=== PATIENT | female | born 1955 | race Caucasian/White ===

== ENCOUNTER 2020-02-08 10:21 | Outpatient (REF) | payer OTHER, SELFPAY ==
[2020-02-08 12:06] LABS: MANUAL DIFF FLAG NO
[2020-02-08 12:12] LABS: Basophils Percent Auto 0.7 % (0-2); Eosinophils Absolute Auto 0.2 X10*3/uL (0.0-0.4); Eosinophils Percent Auto 4.1 % (0-4); Hemoglobin 13.5 g/dl (12.0-16.0); Imm Gran Abs Auto 0.02 X10*3/uL (0.00-0.03); Imm Gran Pct Auto 0.4 % (0.0-0.4); Lymphocytes Absolute Auto 1.1 X10*3/uL (1.2-4.9); Lymphocytes Percent Auto 20.6 % (20-40); Mean Corpuscular HGB Conc 32.1 g/dl (31.0-35.0); Mean Corpuscular Hemoglobin 30.9 pg (27.0-33.0); Mean Corpuscular Volume 96.1 fL (80-98); Mean Platelet Volume 10.3 fL (9.4-12.3); Monocytes Absolute Auto 0.4 X10*3/uL (0.1-1.2); Monocytes Percent Auto 7.5 % (2-11); Neutrophils Absolute Auto 3.6 X10*3/uL (2.0-8.3); Neutrophils Percent Auto 66.7 % (45-73); Platelet Count 256 X10*3/uL (160-400); Red Blood Count 4.37 X10*6/uL (4.20-5.50); Red Cell Distribution Width 12.1 % (11.0-16.0); White Blood Count 5.3 X10*3/uL (4.8-10.8)
[2020-02-08 12:54] LABS: Alanine Aminotransferase 14 U/L (0-31); Albumin Level 4.2 g/dL (3.5-5.0); Alkaline Phosphatase 78 U/L (39-117); Anion Gap 9 (12-20); Aspartate Amino Transferase 17 U/L (5-31); Bilirubin Total 0.5 mg/dL (0.0-1.0); Blood Urea Nitrogen 37 mg/dL (9-16); Calcium 9.4 mg/dL (8.4-10.2); Carbon Dioxide 29 mmol/L (22-29); Chloride 106 mmol/L (96-108); Cholesterol 205 mg/dL; Estimated Glomerular Filt Rate 26; Glucose Fasting 93 mg/dL (60-99); HDL Cholesterol 63 mg/dL; LDL Cholesterol Calculated 128 mg/dl; Sodium 139 mmol/L (135-145); Total Protein 7.3 g/dL (6.5-8.0); Triglycerides 72 mg/dL
== END 2020-02-08 10:22 | disposition home or self-care (01) ==
LOC: HO.LAB 10:21
PROVIDERS: PCP Internal Medicine; Visit Provider Internal Medicine
DX: I48.0 Paroxysmal atrial fibrillation (principal); E78.00 Pure hypercholesterolemia, unspecified; I11.0 Hypertensive heart disease with heart failure; N18.9 Chronic kidney disease, unspecified
CPT/HCPCS: 36415; 80053; 80061; 85025

== ENCOUNTER 2020-04-10 10:54 | Outpatient (REF) | payer OTHER, SELFPAY ==
[2020-04-10 14:21] LABS: Anion Gap 12 (12-20); Blood Urea Nitrogen 31 mg/dL (9-16); Calcium 9.7 mg/dL (8.4-10.2); Carbon Dioxide 29 mmol/L (22-29); Chloride 104 mmol/L (96-108); Estimated Glomerular Filt Rate 32; Glucose Random 87 mg/dL (60-115); Potassium 5.1 mmol/l (3.3-5.1); Sodium 140 mmol/L (135-145)
== END 2020-04-10 10:55 | disposition home or self-care (01) ==
LOC: HO.10HDL 10:54
PROVIDERS: PCP Internal Medicine; Visit Provider Internal Medicine
DX: I12.9 Hypertensive chronic kidney disease with stage 1 through stage 4 chronic kidney disease, or unspecified chronic kidney disease (principal); N18.9 Chronic kidney disease, unspecified
CPT/HCPCS: 80048

== ENCOUNTER → 2020-05-07 13:38 | Outpatient (BNVA) | payer OTHER, SELFPAY | PROVIDERS: PCP Internal Medicine; Visit Provider Internal Medicine Cardiovascular Disease | DX: I48.0 Paroxysmal atrial fibrillation (principal); I10 Essential (primary) hypertension; R07.2 Precordial pain | CPT/HCPCS: 93005 ==

== ENCOUNTER → 2020-05-14 07:52 | Outpatient (REF) | payer OTHER, SELFPAY ==
--- NOTE | 2020-05-14 08:00 | CA_ITS ---
Acquisition Time: 2020-05-14 09:08:14 Total Exercise Time: 00:02:00 Test Indications: Chest Pain Medications: DILTIAZEM LISINOPRIL STATIN ALLOPURINOL LORAZAPAM Protocol: LEXISCAN Max HR: 086 BPM 55% of Pred: 155 BPM Max BP: 138/084 mmHG Max Work Load: 1.0 METS Pharmacological stress test using Lexiscan while sitting and kicking her feet. Pt tolerated well, denies any anginal sx. EKG with isolated PVC's, non-diagnostic for ischemia. Nuclear images will follow. Normotensive response to test. Test reviewed with Dr. Boothe Referred By: Devin Dunlap Overread By: Imelda Brooks
--- NOTE | 2020-05-14 08:09 | NM_ITS ---
Myocardial perfusion study Indication: Precordial chest pain Technique: The patient was brought in for a Lexiscan perfusion study on 05/14/2020. Patient performed low-level exercise and was injected 0.4 mg of Lexiscan intravenously. Within a minute of injection, 30 mCi of sestamibi was given intravenously. Images were obtained using the SPECT gamma camera interlaced with the gating device. Images were obtained in supine position. Resting perfusion study was performed on 05/15/2020. Patient was administered 30 mCi of sestamibi intravenously at rest. Images were then obtained in supine position. Images obtained with and without CT attenuation. Total DLP 92 mGy-cm. Images were processed with the software and compared side to side in short axis, horizontal long axis and vertical long axis views. Findings: The stress perfusion study showed non attenuated images show normal uptake of radiotracer in all segments of LV myocardium. Attenuation corrected images show minimally reduced uptake in the apex of the LV myocardium.. The gated study shows normal LV systolic function with calculated LVEF of 73%. LV cavity is normal in size. The gated study shows normal systolic wall thickening and contraction of segments. Resting study shows no change in perfusion pattern compared to stress perfusion study. Gating at rest reveals normal systolic wall motion with ejection fraction at 71%. The findings are consistent with normal myocardial perfusion. NM/NM cardiolite stress test Impression: 1. Myocardial perfusion imaging study shows normal myocardial perfusion 2. Gated LVEF is 73% 3. Transient ischemic dilatation not present EKG is nondiagnostic for ischemia
== END ==
LOC: HO.CARD 07:52
PROVIDERS: PCP Internal Medicine; Visit Provider Internal Medicine Cardiovascular Disease
DX: I48.0 Paroxysmal atrial fibrillation (principal); I10 Essential (primary) hypertension; R07.2 Precordial pain
CPT/HCPCS: 78452; 93017; A9500; J0280; J2785

== ENCOUNTER → 2020-05-20 13:28 | Outpatient (BNVA) | payer OTHER, SELFPAY | PROVIDERS: PCP Internal Medicine; Visit Provider Nurse Practitioner Family ==

== ENCOUNTER 2020-07-23 11:01 | Outpatient (REF) | payer OTHER, SELFPAY ==
[2020-07-23 11:30] LABS: MANUAL DIFF FLAG NO
[2020-07-23 11:35] LABS: Basophils Percent Auto 0.7 % (0-2); Eosinophils Absolute Auto 0.1 X10*3/uL (0.0-0.4); Eosinophils Percent Auto 2.5 % (0-4); Hematocrit 40.9 % (37-47); Hemoglobin 12.7 g/dl (12.0-16.0); Imm Gran Abs Auto 0.03 X10*3/uL (0.00-0.03); Imm Gran Pct Auto 0.5 % (0.0-0.4); Mean Corpuscular HGB Conc 31.1 g/dl (31.0-35.0); Mean Corpuscular Volume 96.5 fL (80-98); Mean Platelet Volume 9.4 fL (9.4-12.3); Monocytes Absolute Auto 0.5 X10*3/uL (0.1-1.2); Monocytes Percent Auto 8.1 % (2-11); Neutrophils Absolute Auto 3.9 X10*3/uL (2.0-8.3); Neutrophils Percent Auto 70.2 % (45-73); Platelet Count 241 X10*3/uL (160-400); Red Blood Count 4.24 X10*6/uL (4.20-5.50); White Blood Count 5.6 X10*3/uL (4.8-10.8)
[2020-07-23 12:04] LABS: Alanine Aminotransferase 18 U/L (0-31); Albumin Level 4.1 g/dL (3.5-5.0); Alkaline Phosphatase 83 U/L (39-117); Anion Gap 13 (12-20); Aspartate Amino Transferase 19 U/L (5-31); Bilirubin Total 0.3 mg/dL (0.0-1.0); Blood Urea Nitrogen 31 mg/dL (9-16); Calcium 9.4 mg/dL (8.4-10.2); Carbon Dioxide 26 mmol/L (22-29); Chloride 106 mmol/L (96-108); Estimated Glomerular Filt Rate 30; Glucose Random 86 mg/dL (60-115); Potassium 5.2 mmol/L (3.3-5.1); Sodium 140 mmol/L (135-145); Total Protein 7.3 g/dL (6.5-8.0); Uric Acid 7.7 mg/dL (2.4-5.7)
== END 2020-07-23 11:02 | disposition home or self-care (01) ==
LOC: HO.LAB 11:01
PROVIDERS: PCP Internal Medicine; Visit Provider Internal Medicine
DX: I12.9 Hypertensive chronic kidney disease with stage 1 through stage 4 chronic kidney disease, or unspecified chronic kidney disease (principal); N18.9 Chronic kidney disease, unspecified; M10.9 Gout, unspecified; G47.33 Obstructive sleep apnea (adult) (pediatric); K21.9 Gastro-esophageal reflux disease without esophagitis
CPT/HCPCS: 36415; 80053; 84550; 85025

== ENCOUNTER 2021-02-06 10:45 | Outpatient (REF) | payer OTHER, SELFPAY ==
[2021-02-06 13:37] LABS: MANUAL DIFF FLAG NO
[2021-02-06 13:44] LABS: Basophils Percent Auto 0.6 % (0-2); Eosinophils Absolute Auto 0.1 X10*3/uL (0.0-0.4); Eosinophils Percent Auto 2.6 % (0-4); Hematocrit 40.9 % (37-47); Hemoglobin 13.5 g/dl (12.0-16.0); Imm Gran Abs Auto 0.02 X10*3/uL (0.00-0.03); Imm Gran Pct Auto 0.4 % (0.0-0.4); Lymphocytes Absolute Auto 0.8 X10*3/uL (1.2-4.9); Lymphocytes Percent Auto 15.7 % (20-40); Mean Corpuscular Hemoglobin 31.3 pg (27.0-33.0); Mean Corpuscular Volume 94.7 fL (80-98); Mean Platelet Volume 10.6 fL (9.4-12.3); Monocytes Absolute Auto 0.3 X10*3/uL (0.1-1.2); Monocytes Percent Auto 6.5 % (2-11); Neutrophils Absolute Auto 3.8 X10*3/uL (2.0-8.3); Neutrophils Percent Auto 74.2 % (45-73); Platelet Count 253 X10*3/uL (160-400); Red Blood Count 4.32 X10*6/uL (4.20-5.50); Red Cell Distribution Width 12.2 % (11.0-16.0); White Blood Count 5.1 X10*3/uL (4.8-10.8)
[2021-02-06 14:17] LABS: Alanine Aminotransferase 16 U/L (0-31); Alkaline Phosphatase 82 U/L (39-117); Anion Gap 13 (12-20); Aspartate Amino Transferase 19 U/L (5-31); Bilirubin Total 0.3 mg/dL (0.0-1.0); Blood Urea Nitrogen 32 mg/dL (9-16); Calcium 9.4 mg/dL (8.4-10.2); Carbon Dioxide 24 mmol/L (22-29); Chloride 109 mmol/L (96-108); Estimated Glomerular Filt Rate 27; Glucose Random 125 mg/dL (60-115); Potassium 4.6 mmol/L (3.3-5.1); Sodium 141 mmol/L (135-145); Total Protein 7.2 g/dL (6.5-8.0)
== END 2021-02-06 10:46 | disposition home or self-care (01) ==
LOC: HO.10HDL 10:45
PROVIDERS: Visit Provider Internal Medicine
DX: I12.9 Hypertensive chronic kidney disease with stage 1 through stage 4 chronic kidney disease, or unspecified chronic kidney disease (principal); N18.9 Chronic kidney disease, unspecified; I48.0 Paroxysmal atrial fibrillation
CPT/HCPCS: 36415; 80053; 85025

== ENCOUNTER 2021-05-14 09:55 | Outpatient (REF) | payer OTHER, SELFPAY ==
[2021-05-14 14:00] LABS: Basophils Percent Auto 0.4 % (0-2); Eosinophils Absolute Auto 0.1 X10*3/uL (0.0-0.4); Eosinophils Percent Auto 2.8 % (0-4); Hematocrit 41.3 % (37.0-47.0); Hemoglobin 13.3 g/dl (12.0-16.0); Imm Gran Abs Auto 0.02 X10*3/uL (0.00-0.03); Imm Gran Pct Auto 0.4 % (0.0-0.4); Lymphocytes Absolute Auto 0.9 X10*3/uL (1.2-4.9); Lymphocytes Percent Auto 17.6 % (20-40); MANUAL DIFF FLAG NO; Mean Corpuscular HGB Conc 32.2 g/dl (31.0-35.0); Mean Corpuscular Hemoglobin 30.9 pg (27.0-33.0); Mean Platelet Volume 10.6 fL (9.4-12.3); Monocytes Absolute Auto 0.3 X10*3/uL (0.1-1.2); Monocytes Percent Auto 6.7 % (2-11); Neutrophils Absolute Auto 3.6 x10*3/uL (2.0-8.3); Neutrophils Percent Auto 72.1 % (45-73); Platelet Count 283 X10*3/uL (160-400); Red Cell Distribution Width 12.2 % (11.0-16.0)
[2021-05-14 14:12] LABS: Estimated Average Glucose 111 mg/dL; Hemoglobin A1C 149.2241 umol/L; Hemoglobin A1c % 5.5 %
[2021-05-14 14:14] LABS: Appearance Urine HAZY; Color Urine YELLOW; Glucose Urine UA NEG (NEG); Leukocyte Esterase Urine NEG (NEG); Nitrite Urine NEG (NEG); PH 5.5 (5.0-8.0); Specific Gravity - Urine 1.025 (1.005-1.025); Urine Blood NEG (NEG); Urine Ketones 5 MG/DL (NEG); Urine Protein 2+ MG/DL (NEG-TRACE)
[2021-05-14 14:36] LABS: Squamous Epithelial Cell Urine 2+ /LPF
[2021-05-14 14:38] LABS: Amorphous Sediment Urine TRACE /LPF; Bacteria Urine 2+ /LPF; RBC Urine 0-2 /HPF (0); WBC Urine 0 /HPF (0-4)
[2021-05-14 14:39] LABS: Cholesterol 192 mg/dL; HDL Cholesterol 57 mg/dL; LDL Cholesterol Calculated 121 mg/dl; Triglycerides 73 mg/dL
[2021-05-14 21:43] LABS: Creatinine Urine 257.29 mg/dL
[2021-05-14 21:57] LABS: Microalbum/Creatinine Ratio Ur 305.4 ug/mg cr
== END 2021-05-14 09:56 | disposition home or self-care (01) ==
LOC: HO.10HDL 09:55
PROVIDERS: Visit Provider Internal Medicine
DX: E78.00 Pure hypercholesterolemia, unspecified (principal); I12.9 Hypertensive chronic kidney disease with stage 1 through stage 4 chronic kidney disease, or unspecified chronic kidney disease; N18.9 Chronic kidney disease, unspecified; R73.03 Prediabetes
CPT/HCPCS: 36415; 80061; 81001; 82043; 83036; 85025

== ENCOUNTER → 2021-05-19 14:19 | Outpatient (BNVA) | payer OTHER, SELFPAY | PROVIDERS: PCP Internal Medicine; Referring Provider Internal Medicine; Visit Provider Nurse Practitioner Family | DX: I48.0 Paroxysmal atrial fibrillation (principal); I12.9 Hypertensive chronic kidney disease with stage 1 through stage 4 chronic kidney disease, or unspecified chronic kidney disease; N18.9 Chronic kidney disease, unspecified; R07.2 Precordial pain | CPT/HCPCS: 93005 ==

== ENCOUNTER 2021-05-30 08:57 | Day surgery (SDC) | payer OTHER, SELFPAY ==
[2021-05-26 14:07] VITALS: BMI 31.8
--- NOTE | 2021-05-29 09:12 | HO.ANESPROP2 ---
Documented by User: Stormy Bae NP 05/29/21 09:15 HPI - Anesthesia Eval Consult details Narrative: 66yo F for Colonoscopy Xarelto for PAF Stable at 04/2021 Cardiol OV PMFSH Active Problems Active Problems: All Active Problems (Updated 05/26/21 @ 14:06 by Shira Kauffman RN) Precordial pain (Acute) Paroxysmal atrial fibrillation (Acute) HTN (hypertension) (Acute) CKD (chronic kidney disease) (Acute) Past Medical History Medical History Anxiety Chronic renal insufficiency CKD (chronic kidney disease) Elevated cholesterol Gout HTN (hypertension) Hx of ectopic Paroxysmal atrial fibrillation Sleep apnea Family History Family History Father CVD (cardiovascular disease) Mother No problems noted. Surgical History Surgical History H/O colonoscopy History of surgery on arm History of total abdominal hysterectomy Hx of blepharoplasty Hx of cardiac cath Hx of ovarian cystectomy Social History Social History (Updated 05/30/21 @ 10:03 by Ashley Holloway RN) Patient Tobacco Use Status: Never used Tobacco Advance Directives Information Provided: Yes (brochure mailed) Advance Directives on File: No Meds Allergies Allergy/AdvReac Type Severity Reaction Status Date / Time codeine Allergy Intermediate tachycardia Verified 05/30/21 10:01 Home Medications Medication Instructions Recorded Confirmed Last Taken Type allopurinol 100 mg tablet 100 mg PO DAILY PRN 05/07/20 05/26/21 Unknown History lisinopril 20 mg tablet 20 mg PO DAILY 05/07/20 05/26/21 Unknown History lorazepam 1 mg tablet 3 mg PO Q OTHER DAY PRN 05/07/20 05/26/21 Unknown History Exam Exam Date and Time: May 29, 2021 09 Height,Weight and Vital Signs: Height 5 ft 5 in Weight 87 kg Pertinent Lab Results Pertinent Lab Results: Laboratory Tests 02/06/21 05/14/21 10:50 10:00 WBC 5.0 Hgb 13.3 Hct 41.3 Plt Count 283 Sodium 141 Potassium 4.6 Chloride 109 H Carbon Dioxide 24 BUN 32 H Creatinine 1.88 H Narrative Narrative: EKG 04/2021 SR, nonspecific T wave abnormality, rate 65, QTc 401ms Echo 04/06/19 showed EF 65-70%, normal RV function, normal valves. Nuclear stress test? 05/14/20 shows normal myocardial perfusion imaging.? Assessment and Plan Assessment Anesthesia Assessment: Chart Reviewed Documented by User: Sumi Keene MD 05/30/21 10:15 [facility] Past Medical History Medical History Anxiety Chronic renal insufficiency CKD (chronic kidney disease) Elevated cholesterol Gout HTN (hypertension) Hx of ectopic Paroxysmal atrial fibrillation Sleep apnea Family History Family History Father CVD (cardiovascular disease) Mother No problems noted. Family history of problems with anesthesia: No Surgical History Surgical History H/O colonoscopy History of surgery on arm History of total abdominal hysterectomy Hx of blepharoplasty Hx of cardiac cath Hx of ovarian cystectomy History of Problems with Anesthesia: No Social History Social History (Updated 05/30/21 @ 10:03 by Ashley Holloway RN) Patient Tobacco Use Status: Never used Tobacco Advance Directives Information Provided: Yes (brochure mailed) Advance Directives on File: No Meds Allergies Allergy/AdvReac Type Severity Reaction Status Date / Time codeine Allergy Intermediate tachycardia Verified 05/30/21 10:01 Home Medications Medication Instructions Recorded Confirmed Last Taken Type allopurinol 100 mg tablet 100 mg PO DAILY PRN 05/07/20 05/26/21 Unknown History lisinopril 20 mg tablet 20 mg PO DAILY 05/07/20 05/26/21 Unknown History lorazepam 1 mg tablet 3 mg PO Q OTHER DAY PRN 05/07/20 05/26/21 Unknown History Exam Airway Mallampati Class: II TM Dist: >3cm Neck ROM: Full Heart: rrr Lungs: cta Assessment and Plan Assessment Anesthesia Assessment: Anesthesia Plan Discussed and Chart Reviewed Final Anesthetic Review Family History of Problems with Anesthesia: No History of Problems with Anesthesia: No NPO: Yes ASA Class: III Final Preanesthetic Review: No Changes in Pt Med Stat, Meds/Allgs Chart Reviewed and Consent Obtained/Reviewed Patient Risk: Intermediate Procedure Risk: Intermediate Anesthetic Plan Anesthetic Plan: MAC: Disposition: Standard PACU
[2021-05-30 09:33] VITALS: BP 109/62; PULSE 66; RESP 18; TEMP 36.8; O2SAT 95
[2021-05-30] MEDS: Lactated Ringers 1,000 ML 100 ML IVCONT (09:58)
[2021-05-30 11:11] VITALS: BP 105/59; PULSE 58; RESP 16; TEMP 36.2; O2SAT 93
--- NOTE | 2021-05-30 11:14 | P.BOP_ITS ---
Brief Operative Note Date of Service: 05/30/21 Pre-op diagnosis: Screening Post-op diagnosis: other (Colon polyps) Procedure: Colonoscopy to the cecum and TI with bx/removal of polyps Surgeon: Jayden Cross Anesthesia: MAC Was an Fruit Harvest Machine Operator used for this Procedure?: No Estimated blood loss (mL): 2.0 Pathology: other (A. Ascending colon polyps) Condition: stable Disposition: PACU
[2021-05-30 11:26] VITALS: BP 107/59; PULSE 52; RESP 16; TEMP 36.4; O2SAT 97
--- NOTE | 2021-05-30 12:24 | OP_ITS ---
SURGEON: Jayden Cross MD INDICATIONS: Patient presents for evaluation of colorectal cancer screening and personal history of tubular adenoma of the colon. Full consent obtained from her for this, including risks of bleeding and perforation. PREOPERATIVE DIAGNOSIS: Colorectal cancer screening and personal history of tubular adenoma of the colon. POSTOPERATIVE DIAGNOSIS: Colorectal cancer screening and personal history of tubular adenoma of the colon, colon polyps, diverticulosis, and internal hemorrhoids. PROCEDURE PERFORMED: Colonoscopy to the cecum and terminal ileum with biopsy and removal of polyps. ESTIMATED BLOOD LOSS: COMPLICATIONS: ANESTHESIA: Monitored anesthesia care. ASSISTANTS: SPECIMENS: DESCRIPTION OF PROCEDURE: The patient was placed in the left lateral decubitus position. The digital rectal exam revealed no abnormalities. The Olympus video pediatric colonoscope was entered into the rectum and advanced to the cecum with the assistance of abdominal pressure. Once in the cecum I did identify normal-appearing cecal pouch with appendiceal orifice and a normal-appearing ileocecal valve. The terminal ileum was cannulated and appeared normal. Scope was withdrawn back in the colon. The entire cecum appeared normal. The scope was slowly withdrawn assessing all mucosal surfaces carefully. Preparation was good throughout most of the colon, although there were some areas of liquid and solid stool, which were irrigated and suctioned away as best as possible. There were 2 approximately 5 mm polyps in the ascending colon, which were each biopsied and completely removed with the cold biopsy forceps. I did not visualize any other polyps, colitis, or angiodysplasia. There was a mild amount of sigmoid diverticulosis. In the rectum, scope was retroflexed visualizing internal hemorrhoids, but no other pathology. The rectal mucosa appeared normal. Scope was straightened and withdrawn from the patient. She tolerated the procedure well and was returned to the recovery area in stable condition. IMPRESSION: 1. Small colon polyps, status post biopsy removal. 2. Diverticulosis. 3. Internal hemorrhoids. PLAN: The results of biopsy will be checked. I would recommend a repeat colonoscopy in 5 years for further screening and surveillance. She was advised to resume her Xarelto in 48 hours. She will otherwise see me on a p.r.n. basis. MD MICHELL Romero/CARLA / [phone]
== END 2021-05-30 12:21 | disposition home or self-care (01) ==
PROVIDERS: PCP Internal Medicine; Visit Provider Internal Medicine
PROC: 0DJD8ZZ Inspection of Lower Intestinal Tract, Via Natural or Artificial Opening Endoscopic (ICD-10-PCS; CPT 45378; principal; 2021-05-30 10:20)
DX: Z12.11 Encounter for screening for malignant neoplasm of colon (principal); Z86.010 Personal history of colon polyps; D12.2 Benign neoplasm of ascending colon; K57.30 Diverticulosis of large intestine without perforation or abscess without bleeding; K64.8 Other hemorrhoids; I12.9 Hypertensive chronic kidney disease with stage 1 through stage 4 chronic kidney disease, or unspecified chronic kidney disease; N18.2 Chronic kidney disease, stage 2 (mild); E78.5 Hyperlipidemia, unspecified; G47.33 Obstructive sleep apnea (adult) (pediatric); I48.0 Paroxysmal atrial fibrillation; Z79.01 Long term (current) use of anticoagulants; Z99.89 Dependence on other enabling machines and devices
CPT/HCPCS: 45380; 88305

== ENCOUNTER → 2021-07-09 08:48 | Outpatient (BNVA) | payer OTHER, SELFPAY | PROVIDERS: PCP Internal Medicine; Referring Provider Internal Medicine; Visit Provider Internal Medicine Cardiovascular Disease | DX: I48.0 Paroxysmal atrial fibrillation (principal); I10 Essential (primary) hypertension | CPT/HCPCS: 93005 ==

== ENCOUNTER 2021-08-25 10:12 | Outpatient (REF) | payer OTHER, SELFPAY ==
[2021-08-25 12:54] LABS: MANUAL DIFF FLAG NO
[2021-08-25 12:55] LABS: Basophils Percent Auto 0.6 % (0-2); Eosinophils Absolute Auto 0.1 X10*3/uL (0.0-0.4); Eosinophils Percent Auto 2.8 % (0-4); Hematocrit 39.9 % (37.0-47.0); Hemoglobin 12.7 g/dl (12.0-16.0); Imm Gran Abs Auto 0.02 X10*3/uL (0.00-0.03); Imm Gran Pct Auto 0.4 % (0.0-0.4); Lymphocytes Absolute Auto 0.9 X10*3/uL (1.2-4.9); Lymphocytes Percent Auto 18.5 % (20-40); Mean Corpuscular HGB Conc 31.8 g/dl (31.0-35.0); Mean Corpuscular Hemoglobin 30.5 pg (27.0-33.0); Mean Corpuscular Volume 95.7 fL (80.0-98.0); Mean Platelet Volume 10.7 fL (9.4-12.3); Monocytes Absolute Auto 0.4 X10*3/uL (0.1-1.2); Monocytes Percent Auto 8.9 % (2-11); Neutrophils Absolute Auto 3.2 x10*3/uL (2.0-8.3); Neutrophils Percent Auto 68.8 % (45-73); Platelet Count 222 X10*3/uL (160-400); Red Blood Count 4.17 X10*6/uL (4.20-5.50); Red Cell Distribution Width 12.5 % (11.0-16.0); White Blood Count 4.7 X10*3/uL (4.8-10.8)
[2021-08-25 13:08] LABS: Alanine Aminotransferase 16 U/L (0-31); Albumin Level 3.8 g/dL (3.5-5.0); Alkaline Phosphatase 66 U/L (39-117); Anion Gap 14 (12-20); Aspartate Amino Transferase 18 U/L (5-31); Bilirubin Total 0.6 mg/dL (0.0-1.0); Blood Urea Nitrogen 41 mg/dL (9-16); Calcium 9.4 mg/dL (8.4-10.2); Carbon Dioxide 22 mmol/L (22-29); Chloride 108 mmol/L (96-108); Estimated Glomerular Filt Rate 26; Glucose Random 100 mg/dL (60-115); Potassium 4.8 mmol/L (3.3-5.1); Sodium 139 mmol/L (135-145); Total Protein 6.9 g/dL (6.5-8.0)
[2021-08-25 13:36] LABS: Creatinine Urine 40.43 mg/dL; Microalbum/Creatinine Ratio Ur 341.3 ug/mg cr
[2021-08-25 14:06] LABS: Estimated Average Glucose 111 mg/dL; Hemoglobin A1c % 5.5 %
== END 2021-08-25 10:13 | disposition home or self-care (01) ==
LOC: HO.10HDL 10:12
PROVIDERS: Visit Provider Internal Medicine
DX: I48.0 Paroxysmal atrial fibrillation (principal); I12.9 Hypertensive chronic kidney disease with stage 1 through stage 4 chronic kidney disease, or unspecified chronic kidney disease; N18.9 Chronic kidney disease, unspecified; R73.03 Prediabetes; M10.9 Gout, unspecified
CPT/HCPCS: 36415; 80053; 82043; 83036; 85025

== ENCOUNTER 2021-12-11 11:49 | Outpatient (REF) | payer OTHER, SELFPAY ==
[2021-12-11 13:19] LABS: MANUAL DIFF FLAG NO
[2021-12-11 13:23] LABS: Basophils Percent Auto 0.6 % (0-2); Eosinophils Absolute Auto 0.1 X10*3/uL (0.0-0.4); Eosinophils Percent Auto 2.6 % (0-4); Hematocrit 41.8 % (37.0-47.0); Hemoglobin 13.6 g/dl (12.0-16.0); Imm Gran Abs Auto 0.02 X10*3/uL (0.00-0.03); Imm Gran Pct Auto 0.4 % (0.0-0.4); Lymphocytes Percent Auto 18.1 % (20-40); Mean Corpuscular HGB Conc 32.5 g/dl (31.0-35.0); Mean Corpuscular Hemoglobin 30.6 pg (27.0-33.0); Mean Corpuscular Volume 93.9 fL (80.0-98.0); Mean Platelet Volume 10.6 fL (9.4-12.3); Monocytes Absolute Auto 0.3 X10*3/uL (0.1-1.2); Monocytes Percent Auto 5.9 % (2-11); Neutrophils Absolute Auto 3.9 x10*3/uL (2.0-8.3); Neutrophils Percent Auto 72.4 % (45-73); Platelet Count 238 X10*3/uL (160-400); Red Blood Count 4.45 X10*6/uL (4.20-5.50); Red Cell Distribution Width 12.2 % (11.0-16.0); White Blood Count 5.4 X10*3/uL (4.8-10.8)
[2021-12-11 13:33] LABS: Appearance Urine Clear; Color Urine Yellow; Glucose Urine UA Negative (Negative); Leukocyte Esterase Urine Negative (Negative); Nitrite Urine Negative (Negative); Specific Gravity - Urine 1.015 (1.005-1.025); Urine Blood Negative (Negative); Urine Ketones Negative (Negative); Urine Protein 30 (1+) mg/dL (Neg-Trace)
[2021-12-11 13:35] LABS: Bacteria Urine None Seen (None Seen); Hyaline Casts Urine 0-2 /LPF (0-2); RBC Urine 0-2 /HPF (0-2); Squamous Epithelial Cell Urine 0-2 /HPF (0-2); WBC Urine 0-5 /HPF (0-5)
[2021-12-11 13:39] LABS: Alanine Aminotransferase 15 U/L (0-31); Albumin Level 3.9 g/dL (3.5-5.0); Alkaline Phosphatase 74 U/L (39-117); Anion Gap 14 (12-20); Aspartate Amino Transferase 19 U/L (5-31); Bilirubin Total < 0.2 mg/dL (0.0-1.0); Blood Urea Nitrogen 35 mg/dL (9-16); C Reactive Protein 0.18 mg/dL (< or = 0.50); Calcium 9.5 mg/dL (8.4-10.2); Carbon Dioxide 28 mmol/L (22-29); Chloride 105 mmol/L (96-108); Estimated Glomerular Filt Rate 29; Glucose Random 89 mg/dL (60-115); Potassium 4.8 mmol/L (3.3-5.1); Sodium 142 mmol/L (135-145)
== END 2021-12-11 11:50 | disposition home or self-care (01) ==
LOC: HO.10HDL 11:49
PROVIDERS: Visit Provider Internal Medicine
DX: R10.9 Unspecified abdominal pain (principal); M54.9 Dorsalgia, unspecified; N18.9 Chronic kidney disease, unspecified
CPT/HCPCS: 36415; 80053; 81001; 82550; 85025; 86140; 87086

== ENCOUNTER 2022-02-20 10:15 | Outpatient (REF) | payer OTHER, SELFPAY ==
[2022-02-20 13:37] LABS: MANUAL DIFF FLAG NO
[2022-02-20 13:42] LABS: Basophils Percent Auto 0.9 % (0-2); Eosinophils Absolute Auto 0.1 X10*3/uL (0.0-0.4); Eosinophils Percent Auto 3.3 % (0-4); Hematocrit 41.1 % (37.0-47.0); Hemoglobin 13.3 g/dl (12.0-16.0); Imm Gran Abs Auto 0.02 X10*3/uL (0.00-0.03); Imm Gran Pct Auto 0.5 % (0.0-0.4); Lymphocytes Absolute Auto 0.9 X10*3/uL (1.2-4.9); Mean Corpuscular HGB Conc 32.4 g/dl (31.0-35.0); Mean Corpuscular Hemoglobin 30.6 pg (27.0-33.0); Mean Corpuscular Volume 94.7 fL (80.0-98.0); Mean Platelet Volume 10.4 fL (9.4-12.3); Monocytes Absolute Auto 0.3 X10*3/uL (0.1-1.2); Monocytes Percent Auto 7.5 % (2-11); Neutrophils Absolute Auto 2.8 x10*3/uL (2.0-8.3); Neutrophils Percent Auto 65.8 % (45-73); Platelet Count 238 X10*3/uL (160-400); Red Blood Count 4.34 X10*6/uL (4.20-5.50); Red Cell Distribution Width 12.2 % (11.0-16.0); White Blood Count 4.3 X10*3/uL (4.8-10.8)
[2022-02-20 14:00] LABS: Alanine Aminotransferase 16 U/L (0-31); Alkaline Phosphatase 65 U/L (39-117); Anion Gap 15 (12-20); Aspartate Amino Transferase 21 U/L (5-31); Bilirubin Total 0.6 mg/dL (0.0-1.0); Blood Urea Nitrogen 34 mg/dL (9-16); Calcium 9.8 mg/dL (8.4-10.2); Carbon Dioxide 25 mmol/L (22-29); Chloride 105 mmol/L (96-108); Cholesterol 217 mg/dL; Estimated Glomerular Filt Rate 33; Glucose Fasting 89 mg/dL (60-99); HDL Cholesterol 67 mg/dL; LDL Cholesterol Calculated 139 mg/dl; Potassium 4.7 mmol/L (3.3-5.1); Sodium 140 mmol/L (135-145); Triglycerides 57 mg/dL
[2022-02-20 14:07] LABS: Estimated Average Glucose 108 mg/dL; Hemoglobin A1c % 5.4 %
[2022-02-20 14:38] LABS: Microalbum/Creatinine Ratio Ur 937.2 ug/mg cr
[2022-02-24 11:42] LABS: Calcium (PTHI) 9.8 mg/dL (8.6-10.4); PTHI 62 pg/mL (16-77)
== END 2022-02-20 10:16 | disposition home or self-care (01) ==
LOC: HO.10HDL 10:15
PROVIDERS: Visit Provider Internal Medicine
DX: K21.9 Gastro-esophageal reflux disease without esophagitis (principal); I48.0 Paroxysmal atrial fibrillation; E78.00 Pure hypercholesterolemia, unspecified; R73.03 Prediabetes; I12.9 Hypertensive chronic kidney disease with stage 1 through stage 4 chronic kidney disease, or unspecified chronic kidney disease; N18.9 Chronic kidney disease, unspecified
CPT/HCPCS: 36415; 80053; 80061; 82043; 83036; 83970; 85025

== ENCOUNTER 2022-03-25 07:57 | Outpatient (REF) | payer OTHER, SELFPAY ==
--- NOTE | ~2022-03-25 | MM_ITS ---
EXAMINATION: MM SCREENING DIGITAL BREAST TOMOSYNTHESIS, BILATERAL CLINICAL INFORMATION: Screening. Asymptomatic. The lifetime risk of breast cancer based on the Tyrer-Cuzick Model is 5%. COMPARISON: Mammography: December 05, 2020 and studies dating back to February 26, 2012 TECHNIQUE: Digital breast tomosynthesis is performed in both the craniocaudal and mediolateral oblique views along with computer-aided detection (CAD). Synthesized 2D images are generated from the tomosynthesis. FINDINGS: The breasts are heterogeneously dense, which may obscure small masses (ACR BI-RADS breast composition Category c). There are no significant masses, abnormal calcifications, or other abnormalities. MM/MM tomosynthesis screening BI IMPRESSION: No significant changes from prior exam. ASSESSMENT: BI-RADS 1: Negative RECOMMENDATION: Routine annual mammography screening. This patient's information was entered into a reminder system with a target due date for their next mammogram.
--- NOTE | ~2022-03-25 | MM_ITS ---
EXAMINATION: BONE DENSITOMETRY CLINICAL INDICATION: Menopause. COMPARISON: None (current study represents initial baseline exam). TECHNIQUE: Using a [employer] DXA System (software version: 13.1) manufactured by [employer], dual-energy x-ray absorptiometry was performed of the lumbar spine and left hip. The images are of good technical quality. Summary results are attached. FINDINGS: AP SPINE L1-L4: BMD 1.379 g/cm2, Z-score 2.7, T-score 1.7, normal. LEFT FEMUR, NECK: BMD 0.867 g/cm2, Z-score 0.0, T-score -1.2, osteopenia. LEFT FEMUR, TOTAL: BMD 1.005 g/cm2, Z-score 0.9, T-score 0.0, normal. IDENTIFIED RISK FACTORS: Early menopause, height loss, hysterectomy, bilateral oophorectomy, renal, secondary osteoporosis. HISTORY OF FRACTURE: None listed. MEDICATIONS: Vitamin D. MM/XR DEXA axial skeleton IMPRESSION: 1. DIAGNOSIS: Osteopenia based on the lowest T-score value of -1.2 in the femoral neck applying World Health Organization criteria. 2. 10-YEAR FRACTURE RISK PREDICTION, FRAX: Major osteoporotic fracture (clinical spine, forearm, hip or shoulder) 4.7%. Hip fracture 0.4%. 3. Treatment Recommendations: NOF guidelines recommend consideration for treatment in postmenopausal women and men age 50 and older presenting with the following: -A hip or vertebral (clinical or morphometric) fracture. -T-score less than or equal to -2.5 at the femoral neck or spine after appropriate evaluation to exclude secondary causes. -Low bone mass at the hip or spine and a 10-year fracture probability by FRAX of greater than or equal to 3% for hip fracture or greater than or equal to 20% for major osteoporotic fracture based on the [place] adapted WHO algorithm. 4. Other Recommendations: All treatment decisions require clinical judgment and consideration of individual patient factors, including patient preferences, comorbidities, previous drug use, risk factors not captured in the FRAX model (e.g. frailty, falls, vitamin D deficiency, increased bone turnover, interval significant decline in bone density) and possible under or overestimation of fracture risk by FRAX. Additional medical evaluation for secondary cause of low bone mineral density may be appropriate. FUTURE SCAN RECOMMENDATION: People with diagnosed cases of osteoporosis or at high risk for fracture should have regular bone mineral density tests. For patients eligible for Medicare, routine testing is allowed once every 2 years. The testing frequency can be increased to one year for patients who have rapidly progressing disease, those who are receiving or discontinuing medical therapy to restore bone mass, or have additional risk factors.
== END 2022-03-25 07:58 | disposition home or self-care (01) ==
LOC: HO.MAMMO 07:57
PROVIDERS: PCP Internal Medicine; Visit Provider Internal Medicine
DX: Z12.31 Encounter for screening mammogram for malignant neoplasm of breast (principal); Z13.820 Encounter for screening for osteoporosis; Z78.0 Asymptomatic menopausal state
CPT/HCPCS: 77063; 77067; 77080

== ENCOUNTER 2022-04-14 12:45 | Outpatient (REF) | payer OTHER, SELFPAY ==
--- NOTE | ~2022-04-14 | US_ITS ---
EXAMINATION: US DIAGNOSTIC ULTRASOUND BREAST, LEFT CLINICAL INFORMATION: Left breast pain for several weeks. No palpable mass or discharge or erythema. COMPARISON: Mammography 03/25/2022; outside mammography 12/05/2020 ([facility]).. TECHNIQUE: Ultrasound left breast is targeted to all 4 quadrants and additional attention to the inframammary fold region at site of greatest symptoms. Grayscale imaging and color Doppler are performed without and with harmonics. FINDINGS: There is no cystic or solid mass or architectural abnormality. No focal duct ectasia. No skin thickening or edema tracking in soft tissue planes. Chest wall soft tissues are unremarkable. Results are discussed with the patient at time of visit. Patient has upcoming appointment with surgeon for additional evaluation of her symptoms. US/US breast LT limited IMPRESSION: -Unremarkable left breast ultrasound. ASSESSMENT: BI-RADS 1: Negative RECOMMENDATION: -Patient should be managed based on the clinical impression. -Patient has follow up surgical consultation. -Otherwise, routine annual screening mammography. This patient's information was entered into a reminder system with a target due date for their next mammogram.
== END 2022-04-14 12:46 | disposition home or self-care (01) ==
LOC: HO.MAMMO 12:45
PROVIDERS: PCP Internal Medicine; Visit Provider Internal Medicine
DX: N64.4 Mastodynia (principal)
CPT/HCPCS: 76642

== ENCOUNTER → 2022-04-21 08:18 | Outpatient (REF) | payer OTHER, SELFPAY ==
--- NOTE | 2022-04-21 08:26 | CA_ITS ---
Transthoracic Echocardiogram Patient (Last, First, Middle): Ashlie Maurer T Gender: Female Date of : 1955 Age: 67 Procedure Date: 04/21/2022 Procedure Type: Transthoracic Echocardiogram Location: OP Height: 162.56 cm Weight: 81.19 kg BSA: 1.87 m2 Heart Rate: bpm BP: 145 / 80 mmHg Water Fabricator Operator: TO Referring MD: Devin Dunlap MD Vice President Global Digital Marketing: Devin Dunlap MD Symptoms: I48.0 - Paroxysmal atrial fibrillation Study Quality: Adequate ECG Rhythm: Sinus Conclusions: - 1. Normal LV systolic function with grade 1 diastolic dysfunction 2. Normal cardiac valvular Doppler 3. Normal RV systolic pressure 4. No pericardial effusion Findings Left Ventricle Normal left ventricular size, thickness, and systolic function. The visually estimated ejection fraction is between 60-65%. Spectral Doppler is indicative of an impaired relaxation filling pattern. E/E prime ratio is <8, consistent with normal filling pressures. Right Ventricle Normal right ventricular cavity size and systolic function. Atria The left atrium is normal in size. Interatrial shunt cannot be excluded. The right atrium is normal in size. Aortic Valve Normal aortic valve structure and function. There is no aortic valve stenosis. There is no aortic valve regurgitation. Mitral Valve Normal mitral valve structure and function. There is trace mitral valve regurgitation. There is no mitral valve stenosis. Pulmonic Valve The pulmonic valve was not well visualized. Tricuspid Valve Likely normal tricuspid valve structure and function. There is trace tricuspid valve regurgitation. The right ventricular systolic pressure is normal. The right ventricular systolic pressure is 20 mmHg. Normal right atrial pressure. Great Vessels All visible segments of the aorta are normal in size. The pulmonary artery was not well visualized. Venous The inferior vena cava is normal in size and collapses greater than 50% with inspiration. Pericardium/Pleural There is no evidence of pericardial effusion. Prior Study Comparison No significant change compared to prior study dated: 04/06/2019. Measurements 2D Linear Measurements IVSd: 1.24 0.6-0.9/0.6-1.0 cm LVIDd: 4.83 3.9-5.3/4.2-5.9 cm LVIDd Index: 2.58 2.4-3.2/2.2-3.1 cm/m2 LVIDs: 2.28 2.0-3.6 cm LVPWd: 1.04 0.7-1.1 cm LA Diam: 4.10 2.7-3.8/3.0-4.0 cm LAIDs Index: 2.19 1.5-2.3 cm/m2 LV Mass: 256.62 67-162/88-224 g LV Mass Index: 137.23 43-95/49-115 g/m2 LVOT Diam: 1.90 3.0+(-)1.3 cm 2D Systolic Function EF 4C: 66.00 >55% EF 2C: 63.70 >55% EF BiP: 64.10 >55% Mitral Valve MV Pk E: 0.57 MV PK A: 0.57 MV Decel Time: 210.00 E/A: 1.00 E'Lateral: 8.70 E'Medial: 6.64 E/E' Med: 8.60 E/E' Lat: 6.60 PHT: 62.00 MVA PHT: 3.55 Decel Hutchinson: 2.71 Aortic Valve AoV Pk Gallito: 1.27 AoV Mn Gallito: 0.89 AoV VTI: 0.32 AoV Pk Grad: 6.00 Aov Mn Grad: 4.00 GINNY Cont.VTI: 2.20 LVOT LVOT Pk Gallito: 1.05 LVOT Mn Gallito: 0.70 LVOT VTI: 0.24 LVOT Pk Grad: 4.00 LVOT Mn Grad: 2.00 LVOT Diam: 1.90 LVOT Area: 2.84 Diastolic Function MV Pk E: 0.57 MV Pk A: 0.57 E/A: 1.00 E'Medial: 6.64 E/E' Med: 8.60 E' Laterial: 8.70 E/E' Lat: 6.60 Right Ventricle TAPSE (mm): 28.20 TVS' Gallito: 14.70 Tricuspid Valve TR Pk Gallito: 2.05 TR Pk Grad: 17.00 RA Press: 3.00 RVSP: 20.00 Great Vessels Aorta Sinus of Valsalva: 3.02 2.0-3.5 cm Ao Asc: 3.30 2.1-3.4 cm Updated in Other Vendor System with Status of Final Devin Dunlap MD electronically signed on 04/22/2022 4:13:05 PM with status of Final
== END ==
LOC: HO.CARD 08:18
PROVIDERS: PCP Internal Medicine; Visit Provider Internal Medicine Cardiovascular Disease
DX: I48.0 Paroxysmal atrial fibrillation (principal)
CPT/HCPCS: 93306

== ENCOUNTER → 2022-05-08 12:48 | Outpatient (BNVA) | payer OTHER, SELFPAY | PROVIDERS: PCP Internal Medicine; Referring Provider Internal Medicine; Visit Provider Surgery | DX: Z13.89 Encounter for screening for other disorder (principal) ==

== ENCOUNTER → 2022-05-19 13:15 | Outpatient (BNVA) | payer OTHER, SELFPAY | PROVIDERS: PCP Internal Medicine; Referring Provider Internal Medicine; Visit Provider Internal Medicine Cardiovascular Disease | DX: I48.0 Paroxysmal atrial fibrillation (principal); I10 Essential (primary) hypertension | CPT/HCPCS: 93005 ==

== ENCOUNTER 2022-05-25 11:19 | Outpatient (REF) | payer OTHER, SELFPAY ==
[2022-05-25 14:32] LABS: Anion Gap 14 (12-20); Blood Urea Nitrogen 32 mg/dL (9-16); Calcium 9.7 mg/dL (8.4-10.2); Carbon Dioxide 27 mmol/L (22-29); Chloride 107 mmol/L (96-108); Estimated Glomerular Filt Rate 27; Glucose Random 105 mg/dL (60-115); Potassium 4.7 mmol/L (3.3-5.1); Sodium 143 mmol/L (135-145)
[2022-05-27 04:49] LABS: HBS Num1 145.93 mIU/mL (0-7.99); ~Hepatitis B Surface Antibody REACTIVE (Nonreactive)
== END 2022-05-25 11:20 | disposition home or self-care (01) ==
LOC: HO.10HDL 11:19
PROVIDERS: Visit Provider Internal Medicine
DX: I12.9 Hypertensive chronic kidney disease with stage 1 through stage 4 chronic kidney disease, or unspecified chronic kidney disease (principal); N18.9 Chronic kidney disease, unspecified; B19.10 Unspecified viral hepatitis B without hepatic coma
CPT/HCPCS: 36415; 80048; 86706

== ENCOUNTER 2022-08-25 10:28 | Outpatient (REF) | payer OTHER, SELFPAY ==
[2022-08-25 10:44] LABS: MANUAL DIFF FLAG NO
[2022-08-25 11:41] LABS: Basophils Percent Auto 0.7 % (0-2); Eosinophils Absolute Auto 0.2 X10*3/uL (0.0-0.4); Eosinophils Percent Auto 3.1 % (0-4); Hematocrit 42.9 % (37.0-47.0); Hemoglobin 13.9 g/dl (12.0-16.0); Imm Gran Abs Auto 0.02 X10*3/uL (0.00-0.03); Imm Gran Pct Auto 0.4 % (0.0-0.4); Lymphocytes Absolute Auto 1.1 X10*3/uL (1.2-4.9); Lymphocytes Percent Auto 19.6 % (20-40); Mean Corpuscular HGB Conc 32.4 g/dl (31.0-35.0); Mean Corpuscular Hemoglobin 31.1 pg (27.0-33.0); Mean Platelet Volume 10.4 fL (9.4-12.3); Monocytes Absolute Auto 0.4 X10*3/uL (0.1-1.2); Monocytes Percent Auto 6.5 % (2-11); Neutrophils Absolute Auto 3.8 x10*3/uL (2.0-8.3); Neutrophils Percent Auto 69.7 % (45-73); Platelet Count 251 X10*3/uL (160-400); Red Blood Count 4.47 X10*6/uL (4.20-5.50); Red Cell Distribution Width 12.3 % (11.0-16.0); White Blood Count 5.4 X10*3/uL (4.8-10.8)
[2022-08-25 11:56] LABS: Estimated Average Glucose 108 mg/dL; Hemoglobin A1c % 5.4 %
[2022-08-25 12:09] LABS: Creatinine Urine 100.54 mg/dL; Microalbum/Creatinine Ratio Ur 448.5 ug/mg cr
[2022-08-25 12:15] LABS: Alanine Aminotransferase 16 U/L (0-31); Albumin Level 3.9 g/dL (3.5-5.0); Alkaline Phosphatase 83 U/L (39-117); Anion Gap 13 (12-20); Aspartate Amino Transferase 19 U/L (5-31); Bilirubin Total 0.5 mg/dL (0.0-1.0); Blood Urea Nitrogen 39 mg/dL (9-16); Calcium 9.8 mg/dL (8.4-10.2); Carbon Dioxide 24 mmol/L (22-29); Chloride 107 mmol/L (96-108); Estimated Glomerular Filt Rate 29; Glucose Random 105 mg/dL (60-115); Potassium 4.9 mmol/L (3.3-5.1); Sodium 139 mmol/L (135-145)
== END 2022-08-25 10:29 | disposition home or self-care (01) ==
LOC: HO.LAB 10:28
PROVIDERS: PCP Internal Medicine; Visit Provider Internal Medicine
DX: I12.9 Hypertensive chronic kidney disease with stage 1 through stage 4 chronic kidney disease, or unspecified chronic kidney disease (principal); N18.9 Chronic kidney disease, unspecified; I48.0 Paroxysmal atrial fibrillation; R73.03 Prediabetes; K57.90 Diverticulosis of intestine, part unspecified, without perforation or abscess without bleeding
CPT/HCPCS: 36415; 80053; 82043; 83036; 85025

== ENCOUNTER 2022-12-14 11:35 | Outpatient (REF) | payer OTHER, SELFPAY ==
[2022-12-14 14:25] LABS: Anion Gap 11 (12-20); Blood Urea Nitrogen 35 mg/dL (9-16); Calcium 9.9 mg/dL (8.4-10.2); Carbon Dioxide 25 mmol/L (22-29); Chloride 108 mmol/L (96-108); Estimated Glomerular Filt Rate 25; Glucose Random 107 mg/dL (60-115); Potassium 4.4 mmol/L (3.3-5.1); Sodium 140 mmol/L (135-145); Uric Acid 9.4 mg/dL (2.4-5.7)
== END 2022-12-14 11:36 | disposition home or self-care (01) ==
LOC: HO.10HDL 11:35
PROVIDERS: Visit Provider Internal Medicine
DX: I48.0 Paroxysmal atrial fibrillation (principal); I12.9 Hypertensive chronic kidney disease with stage 1 through stage 4 chronic kidney disease, or unspecified chronic kidney disease; N18.9 Chronic kidney disease, unspecified; K21.9 Gastro-esophageal reflux disease without esophagitis; M10.9 Gout, unspecified
CPT/HCPCS: 36415; 80048; 84550

== ENCOUNTER 2022-12-16 10:26 | Outpatient (REF) | payer OTHER, SELFPAY ==
[2022-12-16 13:14] LABS: MANUAL DIFF FLAG NO
[2022-12-16 13:28] LABS: Basophils Percent Auto 0.7 % (0-2); Eosinophils Absolute Auto 0.2 X10*3/uL (0.0-0.4); Eosinophils Percent Auto 3.1 % (0-4); Hematocrit 41.2 % (37.0-47.0); Imm Gran Abs Auto 0.01 X10*3/uL (0.00-0.03); Imm Gran Pct Auto 0.2 % (0.0-0.4); Lymphocytes Absolute Auto 1.1 X10*3/uL (1.2-4.9); Lymphocytes Percent Auto 20.6 % (20-40); Mean Corpuscular HGB Conc 31.6 g/dl (31.0-35.0); Mean Corpuscular Hemoglobin 30.8 pg (27.0-33.0); Mean Corpuscular Volume 97.6 fL (80.0-98.0); Mean Platelet Volume 10.9 fL (9.4-12.3); Monocytes Absolute Auto 0.5 X10*3/uL (0.1-1.2); Monocytes Percent Auto 9.5 % (2-11); Neutrophils Absolute Auto 3.6 x10*3/uL (2.0-8.3); Neutrophils Percent Auto 65.9 % (45-73); Platelet Count 239 X10*3/uL (160-400); Red Blood Count 4.22 X10*6/uL (4.20-5.50); Red Cell Distribution Width 12.6 % (11.0-16.0); White Blood Count 5.5 X10*3/uL (4.8-10.8)
[2022-12-16 14:04] LABS: Anion Gap 11 (12-20); Blood Urea Nitrogen 30 mg/dL (9-16); Calcium 10.1 mg/dL (8.4-10.2); Carbon Dioxide 25 mmol/L (22-29); Chloride 110 mmol/L (96-108); Estimated Glomerular Filt Rate 31; Glucose Random 63 mg/dL (60-115); Potassium 4.6 mmol/L (3.3-5.1); Sodium 141 mmol/L (135-145)
[2022-12-16 14:15] LABS: Estimated Average Glucose 103 mg/dL; Hemoglobin A1c % 5.2 % (<6.0)
== END 2022-12-16 10:27 | disposition home or self-care (01) ==
LOC: HO.10HDL 10:26
PROVIDERS: Visit Provider Internal Medicine
DX: I48.0 Paroxysmal atrial fibrillation (principal); R73.03 Prediabetes; I12.9 Hypertensive chronic kidney disease with stage 1 through stage 4 chronic kidney disease, or unspecified chronic kidney disease; N18.9 Chronic kidney disease, unspecified
CPT/HCPCS: 36415; 80048; 83036; 85025

== ENCOUNTER 2023-02-03 10:15 | Outpatient (REF) | payer OTHER, SELFPAY ==
--- NOTE | ~2023-02-03 | XR_ITS ---
EXAMINATION: XR KNEE, LEFT CLINICAL INFORMATION: Left knee pain with swelling COMPARISON: None available. TECHNIQUE: Four views of the left knee. FINDINGS: Small joint effusion. Tiny tricompartmental osteophytes. Mild medial joint space narrowing. XR/XR knee LT 4V IMPRESSION: Small joint effusion. Mild degenerative changes.
[2023-02-03 12:44] LABS: Anion Gap 14 (12-20); Blood Urea Nitrogen 35 mg/dL (9-16); C Reactive Protein 0.19 mg/dL (< or = 0.50); Calcium 10.1 mg/dL (8.4-10.2); Carbon Dioxide 24 mmol/L (22-29); Chloride 107 mmol/L (96-108); Estimated Glomerular Filt Rate 31; Glucose Random 89 mg/dL (60-115); Potassium 4.6 mmol/L (3.3-5.1); Sodium 140 mmol/L (135-145); Uric Acid 7.8 mg/dL (2.4-5.7)
== END 2023-02-03 10:16 | disposition home or self-care (01) ==
LOC: HO.LAB 10:15
PROVIDERS: PCP Internal Medicine; Visit Provider Internal Medicine
DX: Z13.89 Encounter for screening for other disorder (principal)
CPT/HCPCS: 36415; 73564; 80048; 82550; 84550; 85652; 86140

== ENCOUNTER 2023-03-10 09:42 | Outpatient (AMB) | payer OTHER, SELFPAY ==
--- NOTE | 2023-03-10 09:45 | MHC.OFFVIS ---
Intake Intake Visit Reasons: [employer]- Left knee pain Intake Note: Ashlie is a 68 year old female who presents today as a new patient for a evaluation of her left knee pain and giving way. The patient describes her pain as sharp in nature. Most of the pain is along the medial aspect of her knee. She states that she injured her knee approximately 6 months ago while walking her dogs. She twisted her knee and had acute onset of pain. Since that time her symptoms have gotten worse in spite of continued non operative treatments. She has done physical therapy for 12 weeks over the last 6 months which aggravated her pain. She has had injections in the past which gave her minimal relief. She is not able to take anti-inflammatory medicines because of her kidney disease and she is on Xarelto. She has tried Tylenol which gives her minimal relief. Allergies codeine Allergy (Intermediate, Verified 03/10/23 09:49) tachycardia Medication List - Last Reconciled 03/10/23 by Arnaud Parikh MD diltiazem HCl 240 mg PO DAILY 90 days lisinopril 20 mg PO DAILY lorazepam 3 mg PO Q OTHER DAY PRN rivaroxaban (Xarelto) 15 mg PO DAILY [facility] Medical History Anxiety Chronic renal insufficiency CKD (chronic kidney disease) Elevated cholesterol Gout HTN (hypertension) Hx of ectopic Paroxysmal atrial fibrillation Precordial pain Sleep apnea Surgical History H/O colonoscopy History of surgery on arm History of total abdominal hysterectomy Hx of blepharoplasty Hx of cardiac cath Hx of ovarian cystectomy Family History Father CVD (cardiovascular disease) Mother No problems noted. Social History Patient Tobacco Use Status: Never used Tobacco Female Reproductive History Menstrual Age of Menarche: 11 Physical Exam Const Other: Well-nourished well-developed very friendly female awake alert and oriented x3 in no acute distress Extrem Other: Bilateral lower extremity examination shows good capillary refill, no skin lesions noted, normal sensation light touch Left knee examination shows a mild effusion, minimal crepitus with range of motion, tenderness along her medial joint line, positive Winston's test, no instability Office Procedures Joint Injection/Drain Joint Injection/Drain Primary Site: left knee Prep: site was prepped using aseptic technique Injected: 40 mg of, Kenalog and 1% plain lidocaine Procedure: The patient tolerated the procedure well Coding 21715 - Large joint Procedure code (CPT) selection complete Results Reviewed Results Reviewed: Standing full weight-bearing x-rays of the patient's left knee show minimal diffuse joint space narrowing, no acute bony abnormalities Assessment & Plan Assessment & Plan (1) Left knee pain: Code(s): M25.562 - Pain in left knee Plan Ms. Maurer presents with left knee pain and mechanical symptoms most likely due to a tear of her medial meniscus. I had a lengthy discussion with the patient regarding the treatment options. The risks and benefits of a cortisone injection were discussed at length with the patient. The patient wished to proceed. The patient tolerated the left knee injection well. Prior to the injection 4 cc of clear fluid were aspirated from the patient's knee. I will also send the patient for an MRI of her left knee to further evaluate the status of her medial meniscus. I will see her back once the MRI is completed. I also had her fitted for a knee brace because of her symptoms of instability. I do feel that the knee brace is a medical necessity to help prevent future falls. Feel free to call me at any time should questions regarding her orthopedic management arise. Thank you very much for asking me to see this very friendly patient. I spent 22 minutes in reviewing the patient's records and imaging studies, seeing the patient and documenting in the medical record. Orders: Orders MR knee LT wo con Today M25.562 - Pain in left knee AMB Joint Injection/Aspiration Today M25.562 - Pain in left knee Coding Level of Care Code New Pt Level 2 (93566) Diagnoses Left knee pain M25.562 CPT Codes Coding - Large joint: 70567 - Large joint ([id number])
== END 2023-03-10 10:18 | disposition home or self-care (01) ==
PROVIDERS: PCP Internal Medicine; Visit Provider Orthopaedic Surgery
DX: M25.562 Pain in left knee (principal)
CPT/HCPCS: 20610; 99204

== ENCOUNTER → 2023-03-10 09:42 | Outpatient (BNVA) | payer OTHER, SELFPAY | PROVIDERS: PCP Internal Medicine; Visit Provider Orthopaedic Surgery | DX: M25.562 Pain in left knee (principal) | CPT/HCPCS: 20610; J3301 ==

== ENCOUNTER 2023-03-23 10:54 | Outpatient (REF) | payer OTHER, SELFPAY ==
[2023-03-23 13:07] LABS: MANUAL DIFF FLAG NO
[2023-03-23 13:14] LABS: Basophils Percent Auto 0.5 % (0-2); Eosinophils Absolute Auto 0.1 X10*3/uL (0.0-0.4); Eosinophils Percent Auto 1.8 % (0-4); Hematocrit 42.6 % (37.0-47.0); Hemoglobin 13.7 g/dl (12.0-16.0); Imm Gran Abs Auto 0.05 X10*3/uL (0.00-0.03); Imm Gran Pct Auto 0.7 % (0.0-0.4); Lymphocytes Absolute Auto 0.9 X10*3/uL (1.2-4.9); Mean Corpuscular HGB Conc 32.2 g/dl (31.0-35.0); Mean Corpuscular Hemoglobin 30.5 pg (27.0-33.0); Mean Corpuscular Volume 94.9 fL (80.0-98.0); Monocytes Absolute Auto 0.4 X10*3/uL (0.1-1.2); Monocytes Percent Auto 5.2 % (2-11); Neutrophils Absolute Auto 5.8 x10*3/uL (2.0-8.3); Neutrophils Percent Auto 79.8 % (45-73); Platelet Count 258 X10*3/uL (160-400); Red Blood Count 4.49 X10*6/uL (4.20-5.50); Red Cell Distribution Width 12.5 % (11.0-16.0); White Blood Count 7.3 X10*3/uL (4.8-10.8)
[2023-03-23 13:28] LABS: Alanine Aminotransferase 16 U/L (0-31); Albumin Level 3.8 g/dL (3.5-5.0); Alkaline Phosphatase 77 U/L (39-117); Anion Gap 10 (12-20); Aspartate Amino Transferase 18 U/L (5-31); Bilirubin Total 0.3 mg/dL (0.0-1.0); Blood Urea Nitrogen 35 mg/dL (9-16); Calcium 9.6 mg/dL (8.4-10.2); Carbon Dioxide 27 mmol/L (22-29); Chloride 108 mmol/L (96-108); Estimated Glomerular Filt Rate 26; Glucose Random 93 mg/dL (60-115); Potassium 4.3 mmol/L (3.3-5.1); Sodium 141 mmol/L (135-145); Uric Acid 8.3 mg/dL (2.4-5.7)
== END 2023-03-23 10:55 | disposition home or self-care (01) ==
LOC: HO.10HDL 10:54
PROVIDERS: Visit Provider Internal Medicine
DX: I12.9 Hypertensive chronic kidney disease with stage 1 through stage 4 chronic kidney disease, or unspecified chronic kidney disease (principal); N18.9 Chronic kidney disease, unspecified; M19.90 Unspecified osteoarthritis, unspecified site; I48.0 Paroxysmal atrial fibrillation; M10.9 Gout, unspecified; K57.90 Diverticulosis of intestine, part unspecified, without perforation or abscess without bleeding
CPT/HCPCS: 36415; 80053; 84550; 85025

== ENCOUNTER 2023-04-22 08:09 | Outpatient (REF) | payer OTHER, SELFPAY ==
--- NOTE | ~2023-04-22 | MR_ITS ---
EXAMINATION: MR KNEE WITHOUT CONTRAST, LEFT CLINICAL INFORMATION: Left knee pain and swelling. Effusion. COMPARISON: Left knee radiographs dated 02/03/2023. TECHNIQUE: MRI of the knee without contrast was performed using routine sequences on a high-field scanner. FINDINGS: MENISCI: Medial Meniscus: Irregular, near complete oblique inner margin radial tear of the posterior body/posterior horn junction measuring up to 0.7 cm in ML dimension. Small, superiorly displaced meniscal flap adjacent to the meniscal body. Mild medial extrusion of the meniscal body. Adjacent soft tissue edema. Lateral Meniscus: Nondisplaced oblique inner margin tear of the posterior body and posterior horn. Attenuation of the posterior root. LIGAMENTS: Cruciate: Thickening and increased T2 signal of the anterior cruciate ligament consistent with early mucoid degeneration. More mild degenerative signal within the proximal aspect of the posterior cruciate ligament. Collateral: Edema adjacent to the medial collateral ligament, likely representing a grade 1 sprain. Intact fibular collateral ligament. EXTENSOR MECHANISM: Intact quadriceps and patellar tendons. Normal patellofemoral alignment. ARTICULAR CARTILAGE/BONE: Patellofemoral Compartment: Full-thickness articular cartilage fissuring throughout the superior aspect of the patellar median ridge with underlying subchondral cystic change and marrow edema. Marginal osteophytes. Medial Compartment: Weightbearing articular cartilage thinning and signal heterogeneity with areas of near full-thickness medial femoral condyle articular cartilage loss. Small marginal osteophytes. Marrow edema throughout the medial tibial plateau, consistent with an acute osseous contusion. No fracture line. Lateral Compartment: Mild articular cartilage signal heterogeneity and thinning with tiny marginal osteophytes. JOINT FLUID AND BURSAE: Moderate joint effusion and [id number]-judtttlm Hale's cyst. Lobulated synovitis within the Hale's cyst measuring up to 2.5 cm in craniocaudal dimension. MR/MR knee LT wo con IMPRESSION: 1. Irregular, near complete oblique inner margin radial tear of the medial meniscus posterior body/posterior horn junction measuring 0.7 cm in ML dimension with a small superiorly displaced meniscal flap. 2. Nondisplaced oblique inner margin tear of the lateral meniscus posterior body and posterior horn with attenuation of the posterior root. 3. Early mucoid degeneration of the anterior cruciate ligament. More mild degenerative signal within the proximal posterior cruciate ligament. 4. Probable grade 1 sprain of the medial collateral ligament. 5. Prye-nk-dwsbukyq medial as well as mild patellofemoral and lateral compartment osteoarthritis. Moderate joint effusion and mxdtb-gq-cbchutqf Hale's cyst with synovitis.
== END 2023-04-22 08:10 | disposition home or self-care (01) ==
LOC: HO.MRI 08:09
PROVIDERS: PCP Internal Medicine; Visit Provider Orthopaedic Surgery
DX: M25.562 Pain in left knee (principal)
CPT/HCPCS: 73721

== ENCOUNTER 2023-04-29 09:53 | Outpatient (AMB) | payer OTHER, SELFPAY ==
--- NOTE | 2023-04-29 09:59 | MHC.OFFVIS ---
Intake Intake Visit Reasons: OV- LT Knee MRI Review Intake Note: Ashlie is a 68 yr old, here for MRI review. Ashlie is a 68 year old female who presents today for her left knee pain and giving way. The patient describes her pain as sharp in nature. Most of the pain is along the medial aspect of her knee. She states that she injured her knee approximately 6 months ago while walking her dogs. She twisted her knee and had acute onset of pain. Since that time her symptoms have gotten worse in spite of continued non operative treatments. She has done physical therapy for 12 weeks over the last 6 months which aggravated her pain. She has had injections in the past which gave her minimal relief. She is not able to take anti-inflammatory medicines because of her kidney disease and she is on Xarelto. She has tried Tylenol which gives her minimal relief. The patient did have a cortisone recently which gave her temporary relief. Allergies codeine Allergy (Intermediate, Verified 04/29/23 10:02) tachycardia Medication List - Last Reconciled 04/29/23 by Arnaud Parikh MD diltiazem HCl 240 mg PO DAILY 90 days lisinopril 20 mg PO DAILY lorazepam 3 mg PO Q OTHER DAY PRN rivaroxaban (Xarelto) 15 mg PO DAILY PFSH Medical History Anxiety Gout Elevated cholesterol Chronic renal insufficiency Sleep apnea Hx of ectopic Precordial pain Paroxysmal atrial fibrillation HTN (hypertension) CKD (chronic kidney disease) Surgical History Hx of blepharoplasty Hx of ovarian cystectomy History of total abdominal hysterectomy H/O colonoscopy History of surgery on arm Hx of cardiac cath Family History Father CVD (cardiovascular disease) Mother No problems noted. Social History Patient Tobacco Use Status: Never used Tobacco Female Reproductive History Menstrual Age of Menarche: 11 Physical Exam Const Other: Well-nourished well-developed very friendly female awake alert and oriented x3 in no acute distress Extrem Other: Bilateral lower extremity examination shows good capillary refill, no skin lesions noted, normal sensation light touch Left knee examination shows a mild effusion, minimal crepitus with range of motion, tenderness along her medial joint line, positive Winston's test, no instability Results Reviewed Results Reviewed: MRI of the patient's left knee shows minimal diffuse degenerative changes as well as a tear of the medial meniscus, no acute bony abnormalities Assessment & Plan Assessment & Plan (1) Left knee pain: Code(s): M25.562 - Pain in left knee Plan Ms. Maurer presents with progressively worsening left knee pain and mechanical symptoms due to a tear of her medial meniscus. I had a lengthy discussion with the patient regarding the treatment options. At this point she has failed continued non operative treatments. The risks and benefits of left knee arthroscopic surgery were discussed at length with the patient. The patient wishes to proceed with surgery. Surgery will most likely involve left knee diagnostic arthroscopy with arthroscopic partial medial meniscectomy. The patient will contact my office to pick a surgery date. I will see her back 1 week prior to her surgery to answer any final questions that she might have. Feel free to call me at any time should questions regarding her orthopedic management arise. I spent 22 minutes in reviewing the patient's records and imaging studies, seeing the patient and documenting in the medical record. Coding Level of Care Code Est Pt Level 2 (03013) Diagnoses Left knee pain M25.562
== END 2023-04-29 10:26 | disposition home or self-care (01) ==
PROVIDERS: PCP Internal Medicine; Visit Provider Orthopaedic Surgery
DX: S83.242A Other tear of medial meniscus, current injury, left knee, initial encounter (principal)
CPT/HCPCS: 99213

== ENCOUNTER → 2023-04-29 09:53 | Outpatient (BNVA) | payer OTHER, SELFPAY | PROVIDERS: PCP Internal Medicine; Visit Provider Orthopaedic Surgery ==

== ENCOUNTER 2023-05-13 11:21 | Outpatient (AMB) | payer OTHER, SELFPAY ==
[2023-05-13 11:38] VITALS: BP 120/70; PULSE 74; BMI 29.7
--- NOTE | 2023-05-13 11:38 | MHC.OFFVIS ---
Intake Vital Signs 05/13/23 11:38 Height 5 ft 5 in Weight 178 lb 9.191 oz BMI 29.7 BP 120/70 Blood Pressure Location Lt brachial Position Sitting Pulse 74 Intake Visit Reasons: 1 yr f/up Intake Note: 1 year follow-up with ekg hearts doing good may need knee surgery this year Interior Design Professor Required: No Allergies codeine Allergy (Intermediate, Verified 04/29/23 10:02) tachycardia Medication List - Last Reconciled 05/13/23 by Devin Dunlap MD diltiazem HCl 240 mg PO DAILY 90 days lisinopril 20 mg PO DAILY lorazepam 3 mg PO Q OTHER DAY PRN rivaroxaban (Xarelto) 15 mg PO DAILY HPI HPI Comments History of Present Illness Details Ashlie comes for follow-up. He has been doing well from cardiac perspective. She has been participating in weight loss program says as lost 30 lb but recently had hurt her knees and is found to have meniscal tear. She has not sure if she has to undergo surgery for it. She will keep me updated about the same. She has not had any recurrent atrial fibrillation or prolonged palpitation irregular heartbeat. She says sometimes she forgets to take Cardizem she does notice some palpitation but that corrects after she takes her medications. No bleeding issues or neurologic events. Renal functions have remained stable. She denies any orthopnea, PND, leg edema. No lightheadedness, syncope. [facility] Medical History Anxiety Gout Elevated cholesterol Chronic renal insufficiency Sleep apnea Hx of ectopic Precordial pain Paroxysmal atrial fibrillation HTN (hypertension) CKD (chronic kidney disease) Surgical History Hx of blepharoplasty Hx of ovarian cystectomy History of total abdominal hysterectomy H/O colonoscopy History of surgery on arm Hx of cardiac cath Family History Father CVD (cardiovascular disease) Mother No problems noted. Social History Patient Tobacco Use Status: Never used Tobacco Female Reproductive History Menstrual Age of Menarche: 11 Review of Systems Const Denies chills, Denies fatigue, Denies fever(s), Denies frequent falls, Denies weakness, Denies weight gain and Denies weight loss ENT Denies dizziness Card Denies chest pain, Denies leg edema, Denies lightheadedness, Denies palpitations, Denies dyspnea, Denies dyspnea on exertion, Denies orthopnea and Denies other (loss of consciousness) Resp Denies cough, Denies dyspnea and Denies dyspnea on exertion GI Denies hematochezia and Denies change in stool character Musc Denies abnormal gait, Denies muscle weakness, Denies numbness, Denies radiating pain into limb and Denies tingling Neuro Denies abnormal gait, Denies dizziness, Denies frequent falls, Denies numbness, Denies tingling and Denies weakness Endo Denies fatigue and Denies palpitations Physical Exam Vital Signs: Last Vital Signs Pulse 74 05/13/23 11:38 BP 120/70 05/13/23 11:38 BMI result Body Mass Index 29.7 Const General: cooperative, comfortable, alert and awake Nutritional Appearance: obese Orientation/consciousness: patient oriented x3 Limitations: no limitations Neck Neck: Yes trachea midline, Yes supple and Yes no JVD Chest Chest palpation & inspection: normal inspection of the chest Resp Effort & Inspection: normal respiratory effort Auscultation: clear to auscultation bilaterally Cardio Jugular venous distension: no JVD Palpation: normal PMI Rate: regular rate Rhythm: regular rhythm Heart sounds: S1 normal heart sound present and S2 normal heart sound present GI Auscultation: normal bowel sounds Skin General skin exam: no rashes or lesions noted Neuro General: patient oriented x3 and no focal motor deficits Extrem General: Yes no clubbing, cyanosis or edema Office Procedures EKG Details: EKG shows normal sinus rhythm with QS pattern in lead V1 V2 with nonspecific ST changes [id number], Complete Assessment & Plan Assessment & Plan (1) Paroxysmal atrial fibrillation: Comment: taking xarelto - sees [facility] - OV 05/19/21 on chart Code(s): I48.0 - Paroxysmal atrial fibrillation Plan: Highly symptomatic paroxysmal atrial fibrillation has done well with rhythm control approach will continue pursue rhythm control approach. Currently has done well with Cardizem therapy. No recurrent episodes. Will avoid antiarrhythmic drug at this point time. Continue full oral anticoagulation, currently on Xarelto which is renally dose adjusted. If her GFR gradually reduces below 20 mL/minute may need to switch to a different oral anticoagulation such as warfarin. (2) HTN (hypertension): Code(s): I10 - Essential (primary) hypertension Plan: Hypertension which is currently well optimized. Closely followed by Nephrology given her chronic kidney disease. Continue follow-up with nephrology. Continue maintain aggressive control blood pressure which is important to prevent progressive end-organ damage. Goal blood pressure less than 130/84. Will follow up in the clinic in 1 year's time, sooner p.r.n.. Thank you for allowing me to partake in her care Coding Level of Care Code Est Pt Level 4 (17033) Diagnoses Paroxysmal atrial fibrillation I48.0 HTN (hypertension) I10 CPT Codes EKG - CPT: 89552-[id number], Complete ([id number])
== END 2023-05-13 12:01 | disposition home or self-care (01) ==
PROVIDERS: Visit Provider Internal Medicine Cardiovascular Disease
DX: I48.0 Paroxysmal atrial fibrillation (principal); I10 Essential (primary) hypertension
CPT/HCPCS: 93010; 99214

== ENCOUNTER → 2023-05-13 11:21 | Outpatient (BNVA) | payer OTHER, SELFPAY | PROVIDERS: Visit Provider Internal Medicine Cardiovascular Disease | DX: I48.0 Paroxysmal atrial fibrillation (principal); I10 Essential (primary) hypertension; Z79.01 Long term (current) use of anticoagulants; Z79.899 Other long term (current) drug therapy | CPT/HCPCS: 93005 ==

== ENCOUNTER 2023-06-24 09:29 | Outpatient (REF) | payer OTHER, SELFPAY ==
[2023-06-24 10:54] LABS: MANUAL DIFF FLAG NO
[2023-06-24 11:02] LABS: Appearance Urine Clear; Color Urine Yellow; Glucose Urine UA Negative (Negative); Leukocyte Esterase Urine Negative (Negative); Nitrite Urine Negative (Negative); UMIC TRIGGER UA YES; Urine Blood Trace (Negative); Urine Ketones Negative (Negative); Urine Protein 30 (1+) mg/dL (Neg-Trace)
[2023-06-24 11:04] LABS: Bacteria Urine None Seen (None Seen); Hyaline Casts Urine 0-2 /LPF (0-2); RBC Urine 0-2 /HPF (0-2); Squamous Epithelial Cell Urine 0-2 /HPF (0-2); WBC Urine 0-5 /HPF (0-5)
[2023-06-24 11:07] LABS: Basophils Percent Auto 0.6 % (0-2); Eosinophils Absolute Auto 0.1 X10*3/uL (0.0-0.4); Eosinophils Percent Auto 2.4 % (0-4); Hematocrit 39.8 % (37.0-47.0); Hemoglobin 13.3 g/dl (12.0-16.0); Imm Gran Abs Auto 0.02 X10*3/uL (0.00-0.03); Imm Gran Pct Auto 0.4 % (0.0-0.4); Lymphocytes Absolute Auto 1.2 X10*3/uL (1.2-4.9); Lymphocytes Percent Auto 24.2 % (20-40); Mean Corpuscular HGB Conc 33.4 g/dl (31.0-35.0); Mean Corpuscular Hemoglobin 31.5 pg (27.0-33.0); Mean Corpuscular Volume 94.3 fL (80.0-98.0); Mean Platelet Volume 9.8 fL (9.4-12.3); Monocytes Absolute Auto 0.4 X10*3/uL (0.1-1.2); Monocytes Percent Auto 8.5 % (2-11); Neutrophils Absolute Auto 3.1 x10*3/uL (2.0-8.3); Neutrophils Percent Auto 63.9 % (45-73); Platelet Count 225 X10*3/uL (160-400); Red Blood Count 4.22 X10*6/uL (4.20-5.50); Red Cell Distribution Width 12.1 % (11.0-16.0); White Blood Count 4.9 X10*3/uL (4.8-10.8)
[2023-06-24 11:18] LABS: Creatinine Urine 54.66 mg/dL; Microalbum/Creatinine Ratio Ur 332.9 ug/mg cr (<30)
[2023-06-24 11:33] LABS: Alanine Aminotransferase 20 U/L (0-31); Albumin Level 3.8 g/dL (3.5-5.0); Alkaline Phosphatase 76 U/L (39-117); Anion Gap 10 (12-20); Aspartate Amino Transferase 25 U/L (5-31); Bilirubin Total 0.4 mg/dL (0.0-1.0); Blood Urea Nitrogen 35 mg/dL (9-16); Calcium 9.9 mg/dL (8.4-10.2); Carbon Dioxide 26 mmol/L (22-29); Chloride 110 mmol/L (96-108); Cholesterol 196 mg/dL (<200); Estimated Glomerular Filt Rate 28; Glucose Fasting 99 mg/dL (60-99); HDL Cholesterol 66 mg/dL (>40); LDL Cholesterol Calculated 119 mg/dL (<100); Potassium 4.5 mmol/L (3.3-5.1); Sodium 141 mmol/L (135-145); Triglycerides 57 mg/dL (<150)
[2023-06-24 11:41] LABS: Uric Acid 8.2 mg/dL (2.4-5.7)
== END 2023-06-24 09:30 | disposition home or self-care (01) ==
LOC: HO.10HDL 09:29
PROVIDERS: Visit Provider Internal Medicine
DX: I12.9 Hypertensive chronic kidney disease with stage 1 through stage 4 chronic kidney disease, or unspecified chronic kidney disease (principal); N18.9 Chronic kidney disease, unspecified; E78.00 Pure hypercholesterolemia, unspecified
CPT/HCPCS: 36415; 80053; 80061; 81001; 81003; 82043; 82570; 84550; 85025

== ENCOUNTER 2023-10-21 14:29 | Outpatient (REF) | payer MEDICARE, OTHER, SELFPAY ==
[2023-10-21 15:51] LABS: Basophils Percent Auto 0.3 % (0-2); Eosinophils Absolute Auto 0.1 X10*3/uL (0.0-0.4); Eosinophils Percent Auto 1.1 % (0-4); Hematocrit 40.2 % (37.0-47.0); Hemoglobin 13.2 g/dl (12.0-16.0); Imm Gran Abs Auto 0.07 X10*3/uL (0.00-0.03); Imm Gran Pct Auto 1.1 % (0.0-0.4); Lymphocytes Absolute Auto 1.4 X10*3/uL (1.2-4.9); Lymphocytes Percent Auto 21.5 % (20-40); MANUAL DIFF FLAG NO; Mean Corpuscular HGB Conc 32.8 g/dl (31.0-35.0); Mean Corpuscular Hemoglobin 30.8 pg (27.0-33.0); Mean Corpuscular Volume 93.9 fL (80.0-98.0); Monocytes Absolute Auto 0.5 X10*3/uL (0.1-1.2); Monocytes Percent Auto 7.6 % (2-11); Neutrophils Absolute Auto 4.4 x10*3/uL (2.0-8.3); Neutrophils Percent Auto 68.4 % (45-73); Platelet Count 287 X10*3/uL (160-400); Red Blood Count 4.28 X10*6/uL (4.20-5.50); Red Cell Distribution Width 12.2 % (11.0-16.0); White Blood Count 6.5 X10*3/uL (4.8-10.8)
[2023-10-21 17:18] LABS: Alanine Aminotransferase 26 U/L (0-31); Albumin Level 3.8 g/dL (3.5-5.0); Alkaline Phosphatase 81 U/L (39-117); Anion Gap 13 (12-20); Aspartate Amino Transferase 28 U/L (5-31); Bilirubin Total 0.2 mg/dL (0.0-1.0); Blood Urea Nitrogen 30 mg/dL (9-16); Calcium 10.1 mg/dL (8.4-10.2); Carbon Dioxide 28 mmol/L (22-29); Chloride 107 mmol/L (96-108); Estimated Glomerular Filt Rate 26; Glucose Random 81 mg/dL (60-115); Potassium 4.7 mmol/L (3.3-5.1); Sodium 143 mmol/L (135-145); Total Protein 7.2 g/dL (6.5-8.0)
== END 2023-10-21 14:30 | disposition home or self-care (01) ==
LOC: HO.LAB 14:29
PROVIDERS: PCP Internal Medicine; Visit Provider Internal Medicine
DX: I12.9 Hypertensive chronic kidney disease with stage 1 through stage 4 chronic kidney disease, or unspecified chronic kidney disease (principal); N18.9 Chronic kidney disease, unspecified; K21.9 Gastro-esophageal reflux disease without esophagitis; I48.0 Paroxysmal atrial fibrillation; K57.90 Diverticulosis of intestine, part unspecified, without perforation or abscess without bleeding
CPT/HCPCS: 36415; 80053; 85025

== ENCOUNTER 2023-11-25 10:15 | Outpatient (REF) | payer MEDICARE, SELFPAY ==
[2023-11-25 10:36] LABS: MANUAL DIFF FLAG NO
[2023-11-25 11:22] LABS: Basophils Percent Auto 0.6 % (0-2); Eosinophils Absolute Auto 0.1 X10*3/uL (0.0-0.4); Eosinophils Percent Auto 1.7 % (0-4); Hematocrit 41.7 % (37.0-47.0); Hemoglobin 13.7 g/dl (12.0-16.0); Imm Gran Abs Auto 0.03 X10*3/uL (0.00-0.03); Imm Gran Pct Auto 0.6 % (0.0-0.4); Lymphocytes Percent Auto 19.4 % (20-40); Mean Corpuscular HGB Conc 32.9 g/dl (31.0-35.0); Mean Corpuscular Hemoglobin 31.2 pg (27.0-33.0); Mean Platelet Volume 9.9 fL (9.4-12.3); Monocytes Absolute Auto 0.4 X10*3/uL (0.1-1.2); Monocytes Percent Auto 7.4 % (2-11); Neutrophils Absolute Auto 3.7 x10*3/uL (2.0-8.3); Neutrophils Percent Auto 70.3 % (45-73); Platelet Count 273 X10*3/uL (160-400); Red Blood Count 4.39 X10*6/uL (4.20-5.50); Red Cell Distribution Width 12.8 % (11.0-16.0); White Blood Count 5.3 X10*3/uL (4.8-10.8)
[2023-11-25 11:25] LABS: Appearance Urine Clear; Color Urine Yellow; Glucose Urine UA Negative (Negative); Leukocyte Esterase Urine Small (1+) (Negative); Nitrite Urine Negative (Negative); PH 5.5 (5.0-9.0); Specific Gravity - Urine 1.015 (1.005-1.025); UMIC TRIGGER UA YES; Urine Blood Negative (Negative); Urine Ketones Negative (Negative); Urine Protein 30 (1+) mg/dL (Neg-Trace)
[2023-11-25 11:28] LABS: Bacteria Urine 1+ (None Seen); Hyaline Casts Urine 0-2 /LPF (0-2); RBC Urine 0-2 /HPF (0-2)
[2023-11-25 12:01] LABS: Parathyroid Hormone Intact 75.1 pg/mL (8.7-77.1)
[2023-11-25 12:04] LABS: Anion Gap 12 (12-20); Blood Urea Nitrogen 30 mg/dL (9-16); Calcium 10.3 mg/dL (8.4-10.2); Carbon Dioxide 28 mmol/L (22-29); Chloride 106 mmol/L (96-108); Estimated Glomerular Filt Rate 22; Magnesium 2.2 mg/dL (1.6-2.6); Phosphorus 3.2 mg/dL (2.7-4.5); Potassium 4.5 mmol/L (3.3-5.1); Sodium 141 mmol/L (135-145)
[2023-11-25 12:04] LABS: Creatinine Urine 123.94 mg/dL; Microalbum/Creatinine Ratio Ur 166.2 ug/mg cr (<30); Protein/Creatinine Ratio, Ur 0.26 (<0.2); Total Protein Urine Random 32 mg/dL (<12)
[2023-11-25 12:23] LABS: Vitamin D 25-OH Total 45.9 ng/mL (>30)
== END 2023-11-25 10:16 | disposition home or self-care (01) ==
LOC: HO.LAB 10:15
PROVIDERS: PCP Internal Medicine; Visit Provider Internal Medicine Nephrology
DX: N18.4 Chronic kidney disease, stage 4 (severe) (principal); R80.1 Persistent proteinuria, unspecified
CPT/HCPCS: 36415; 80051; 81001; 82040; 82043; 82306; 82310; 82565; 82570; 83735; 83970; 84100; 84156; 84520; 85025

== ENCOUNTER 2024-02-10 12:32 | Outpatient (REF) | payer MEDICARE, SELFPAY ==
[2024-02-10 13:17] LABS: MANUAL DIFF FLAG NO
[2024-02-10 13:36] LABS: Basophils Percent Auto 0.8 % (0-2); Eosinophils Absolute Auto 0.1 X10*3/uL (0.0-0.4); Eosinophils Percent Auto 1.4 % (0-4); Hematocrit 39.8 % (37.0-47.0); Hemoglobin 13.1 g/dl (12.0-16.0); Imm Gran Abs Auto 0.02 X10*3/uL (0.00-0.03); Imm Gran Pct Auto 0.4 % (0.0-0.4); Lymphocytes Absolute Auto 0.9 X10*3/uL (1.2-4.9); Lymphocytes Percent Auto 17.8 % (20-40); Mean Corpuscular HGB Conc 32.9 g/dl (31.0-35.0); Mean Corpuscular Hemoglobin 31.1 pg (27.0-33.0); Mean Corpuscular Volume 94.5 fL (80.0-98.0); Mean Platelet Volume 10.3 fL (9.4-12.3); Monocytes Absolute Auto 0.3 X10*3/uL (0.1-1.2); Monocytes Percent Auto 6.6 % (2-11); Neutrophils Absolute Auto 3.7 x10*3/uL (2.0-8.3); Platelet Count 241 X10*3/uL (160-400); Red Blood Count 4.21 X10*6/uL (4.20-5.50); White Blood Count 5.1 X10*3/uL (4.8-10.8)
[2024-02-10 14:09] LABS: Alanine Aminotransferase 28 U/L (0-31); Albumin Level 3.9 g/dL (3.5-5.0); Alkaline Phosphatase 76 U/L (39-117); Anion Gap 10 (12-20); Aspartate Amino Transferase 26 U/L (5-31); Bilirubin Total 0.3 mg/dL (0.0-1.0); Blood Urea Nitrogen 34 mg/dL (9-16); Calcium 10.3 mg/dL (8.4-10.2); Carbon Dioxide 26 mmol/L (22-29); Chloride 109 mmol/L (96-108); Estimated Glomerular Filt Rate 27; Glucose Random 129 mg/dL (60-115); Potassium 4.3 mmol/L (3.3-5.1); Sodium 141 mmol/L (135-145)
== END 2024-02-10 12:33 | disposition home or self-care (01) ==
LOC: HO.10HDL 12:32
PROVIDERS: Visit Provider Internal Medicine
DX: I12.9 Hypertensive chronic kidney disease with stage 1 through stage 4 chronic kidney disease, or unspecified chronic kidney disease (principal); N18.9 Chronic kidney disease, unspecified; I48.0 Paroxysmal atrial fibrillation
CPT/HCPCS: 36415; 80053; 85025

== ENCOUNTER 2024-05-09 12:18 | Outpatient (AMB) | payer MEDICARE, SELFPAY ==
[2024-05-09 12:33] VITALS: BP 120/76; PULSE 66; BMI 30.8
--- NOTE | 2024-05-09 12:33 | A.OFFVIS_ITS ---
Vital Signs 05/09/24 12:33 Height 5 ft 5 in Weight 185 lb 3.013 oz BMI 30.8 BP 120/76 Blood Pressure Location Lt brachial Position Sitting Pulse 66 Intake Visit Reasons: 1 year follow up Intake Note: 1 year follow-up with ekg feeling good Curling Machine Operator Required: No Allergies codeine Allergy (Intermediate, Verified 04/29/23 10:02) tachycardia Medication List - Last Reconciled 05/09/24 by Devin Dunlap MD diltiazem HCl CD 240 mg PO DAILY lisinopril 20 mg PO DAILY lorazepam 3 mg PO Q OTHER DAY PRN rivaroxaban (Xarelto) 15 mg PO DAILY HPI Comments Details: Ashlie comes for follow-up. She has been doing very well from cardiac perspective. She said prior to the winter she was to walk extensively and has no exertional chest pain or shortness of breath. Denies any prolonged palpitations or fast heart rate. No lightheadedness, syncope. She has some progression in her kidney disease in his currently stage IV as per her. Taking all her medications. No orthopnea, PND, leg edema. No bleeding issues or neurologic events PFSH Medical History Anxiety Gout Elevated cholesterol Chronic renal insufficiency Sleep apnea Hx of ectopic Precordial pain Paroxysmal atrial fibrillation HTN (hypertension) CKD (chronic kidney disease) Surgical History Hx of blepharoplasty Hx of ovarian cystectomy History of total abdominal hysterectomy H/O colonoscopy History of surgery on arm Hx of cardiac cath Family History Father CVD (cardiovascular disease) Mother No problems noted. Social History Patient Tobacco Use Status: Never used Tobacco Female Reproductive History Menstrual Age of Menarche: 11 Review of Systems Const Denies chills, Denies fatigue, Denies fever(s), Denies frequent falls, Denies weakness, Denies weight gain and Denies weight loss ENT Denies dizziness Card Denies chest pain, Denies leg edema, Denies lightheadedness, Denies palpitations, Denies dyspnea, Denies dyspnea on exertion, Denies orthopnea and Denies other (loss of consciousness) Resp Denies cough, Denies dyspnea and Denies dyspnea on exertion GI Denies hematochezia and Denies change in stool character Musc Denies abnormal gait, Denies muscle weakness, Denies numbness, Denies radiating pain into limb and Denies tingling Neuro Denies abnormal gait, Denies dizziness, Denies frequent falls, Denies numbness, Denies tingling and Denies weakness Endo Denies fatigue and Denies palpitations Physical Exam Vital Signs: Last Vital Signs Pulse 66 05/09/24 12:33 BP 120/76 05/09/24 12:33 BMI result Body Mass Index 30.8 Const General: cooperative, comfortable, alert and awake Nutritional Appearance: obese Orientation/consciousness: patient oriented x3 Limitations: no limitations Neck Neck: Yes trachea midline, Yes supple and Yes no JVD Chest Chest palpation & inspection: normal inspection of the chest Resp Effort & Inspection: normal respiratory effort Auscultation: clear to auscultation bilaterally Cardio Jugular venous distension: no JVD Palpation: normal PMI Rate: regular rate Rhythm: regular rhythm Heart sounds: S1 normal heart sound present and S2 normal heart sound present GI Auscultation: normal bowel sounds Skin General skin exam: no rashes or lesions noted Neuro General: patient oriented x3 and no focal motor deficits Extrem General: Yes no clubbing, cyanosis or edema Office Procedures EKG Details: EKG shows poor baseline but normal sinus rhythm with low-amplitude P waves sugg estive atrial myopathy otherwise no significant ST T wave changes [id number], Complete Assessment & Plan Assessment & Plan (1) Paroxysmal atrial fibrillation: Comment: taking xarelto - sees [facility] - OV 05/19/21 on chart Code(s): I48.0 - Paroxysmal atrial fibrillation Category: Medical Plan: Highly symptomatic paroxysmal atrial fibrillation doing very well with rhythm control approach. Continue pursue rhythm control approach. Currently on Cardizem therapy and working well. No need for antiarrhythmic drug therapy. Continue Cardizem. Avoidance of stimulants was discussed. Continue CPAP therapy. Continue aggressive control blood pressure. Continue current renally adjusted dose of Xarelto at 15 mg daily. Will need to reconsider oral anticoagulation therapy once creatinine clearance as below 20 (2) HTN (hypertension): Code(s): I10 - Essential (primary) hypertension Category: Medical Plan: Hypertension which is currently well optimized on current therapy. Continue the same. Aggressive control blood pressure is important to protect intermediate card tender vascular events. Advised to monitor blood pressure at home maintain a log. Low-salt diet was discussed. Continue maintain activity level as tolerated. Will follow up in the clinic in 1 year's time, sooner p.r.n.. Thank you for allowing me to partake in his care Coding Level of Care Code Est Pt Level 4 (05422) Complex EM visit Add On G2211 Diagnoses Paroxysmal atrial fibrillation I48.0 HTN (hypertension) I10 CPT Codes EKG - CPT: 52102-Cfgvzuhuqtlrjqhav, Complete ([id number])
== END 2024-05-09 12:53 | disposition home or self-care (01) ==
PROVIDERS: PCP Internal Medicine; Visit Provider Internal Medicine Cardiovascular Disease
DX: I48.0 Paroxysmal atrial fibrillation (principal); I10 Essential (primary) hypertension
CPT/HCPCS: 93010; 99214; G2211

== ENCOUNTER → 2024-05-09 12:18 | Outpatient (BNVA) | payer OTHER, SELFPAY | PROVIDERS: PCP Internal Medicine; Visit Provider Internal Medicine Cardiovascular Disease | DX: I48.0 Paroxysmal atrial fibrillation (principal); I10 Essential (primary) hypertension; Z79.01 Long term (current) use of anticoagulants; Z79.899 Other long term (current) drug therapy | CPT/HCPCS: 93005; 99212 ==

== ENCOUNTER 2024-05-30 11:18 | Outpatient (REF) | payer MEDICARE, SELFPAY ==
[2024-05-30 11:54] LABS: MANUAL DIFF FLAG NO
[2024-05-30 11:57] LABS: Appearance Urine Cloudy; Color Urine Yellow; Glucose Urine UA Negative (Negative); Leukocyte Esterase Urine Small (1+) (Negative); Nitrite Urine Negative (Negative); PH 5.5 (5.0-9.0); UMIC TRIGGER UA YES; Urine Blood Negative (Negative); Urine Ketones Trace mg/dL (Negative); Urine Protein 100 (2+) mg/dL (Neg-Trace)
[2024-05-30 12:03] LABS: Basophils Absolute Auto 0.1 X10*3/uL (0.0-0.2); Eosinophils Absolute Auto 0.1 X10*3/uL (0.0-0.4); Eosinophils Percent Auto 2.5 % (0-4); Hematocrit 41.2 % (37.0-47.0); Hemoglobin 13.5 g/dl (12.0-16.0); Imm Gran Abs Auto 0.02 X10*3/uL (0.00-0.03); Imm Gran Pct Auto 0.4 % (0.0-0.4); Lymphocytes Percent Auto 19.4 % (20-40); Mean Corpuscular HGB Conc 32.8 g/dl (31.0-35.0); Mean Corpuscular Hemoglobin 31.3 pg (27.0-33.0); Mean Corpuscular Volume 95.4 fL (80.0-98.0); Mean Platelet Volume 9.7 fL (9.4-12.3); Monocytes Absolute Auto 0.4 X10*3/uL (0.1-1.2); Monocytes Percent Auto 7.8 % (2-11); Neutrophils Absolute Auto 3.6 x10*3/uL (2.0-8.3); Neutrophils Percent Auto 68.9 % (45-73); Platelet Count 233 X10*3/uL (160-400); Red Blood Count 4.32 X10*6/uL (4.20-5.50); Red Cell Distribution Width 12.4 % (11.0-16.0); White Blood Count 5.2 X10*3/uL (4.8-10.8)
[2024-05-30 12:10] LABS: Bacteria Urine 1+ (None Seen)
--- OUTSIDE RECORDS SUMMARY | 2024-05-30 12:21 | XMS_ITS | Encounter Summary ---
Author Organization [facility], Address [address] [place] [address] Phone Care Team Providers Care Insole Filler Name Role Phone Amilcar Harvey MD Primary Care Provider [phone] Encounter Details Date Type Department Care Team (Late st Contact Info) Description 01/05/2023 Documentation Only [facility], [facility] [address] Loretta ALMEIDAWOOD [facility] [address] [place] [phone] Carol Dwyer MD Social History Tobacco Use Types Packs/Day Years Used Date Smoking Tobacco: Never Alcohol Use Standard Drinks/Week Comments Yes 0 (1 standard drink = 0.6 oz pure alcohol) Alcoholic Drinks/day: Occasional social drink Comments Unknown Sex and Gender Information Value Date Recorded Sex Assigned at Not on file Legal Sex Female 4:33 PM EST Gender Identity Not on file Sexual Orientation Not on file documented as of this encounter Plan of Treatment Upcoming Encounters Date Type Department Care Team (Late st Contact Info) Description 06/05/2024 1:15 PM EST Office Visit [facility] [address] [address] [place] [phone] Mane Rivera MD [address] [facility] [address] [place] [address] documented as of this encounter Visit Diagnoses Not on filedocumented in this encounter Care Teams Insole Filler Relationship Specialty Start Date End Date Amilcar Harvey MD [address] [place] [address] [address] CHRISTIANO ABDULLAHI PCP - General 02/28/19 documented as of this encounter
--- OUTSIDE RECORDS SUMMARY | 2024-05-30 12:21 | XMS_ITS | Encounter Summary ---
Author Organization [facility], Address [address] [place] [address] Phone Care Team Providers Care Solution Spec Name Role Phone Amilcar Harvey MD Primary Care Provider [phone] Encounter Details Date Type Department Care Team (Late st Contact Info) Description 01/05/2023 Documentation Only [facility], [facility] Dr Loretta ALMEIDAWOOD [facility] [address] [place] [phone] Carol Dwyer MD Social History Tobacco Use [...] Visit [facility] [address] [place] [phone] Mane Rivera MD [address] [facility] [address] [place] [address] documented as of this encounter Visit Diagnoses Not on filedocumented in this encounter Care Teams Solution Spec Relationship Specialty Start Date End Date Amilcar Harvey MD [address] [place] [address] [address] CHRISTIANO ABDULLAHI PCP - General 02/28/19 documented as of this encounter
--- OUTSIDE RECORDS SUMMARY | 2024-05-30 12:21 | XMS_ITS | Encounter Summary ---
Author Organization [facility], Address [address] [place] [address] Phone Care Team Providers Care Senior It Assistant Name Role Phone Amilcar Harvey MD Primary Care Provider [phone] Encounter Details Date Type Department Care Team (Late st Contact Info) Description 01/05/2023 Documentation Only [facility], [facility] Dr Loretta ALMEIDAWOOD [facility] [address] [place] [phone] Carol Dwyer MD Social History Tobacco Use [...] Visit [facility] [address] [place] [phone] Mane Rivera MD [address] [facility] [address] [place] [address] documented as of this encounter Visit Diagnoses Not on filedocumented in this encounter Care Teams Senior It Assistant Relationship Specialty Start Date End Date Amilcar Harvey MD [address] [place] [address] [address] CHRISTIANO ABDULLAHI PCP - General 02/28/19 documented as of this encounter
--- OUTSIDE RECORDS SUMMARY | 2024-05-30 12:21 | XMS_ITS | Encounter Summary ---
Author Organization [facility] [place], Address [address] [place] [address] Phone Care Team Providers Care Production Mechanic Name Role Phone Amilcar Harvey MD Primary Care Provider [phone] Encounter Details Date Type Department Care Team (Late st Contact Info) Description 09/10/2022 Documentation Only [facility], [facility] Dr Loretta ALMEIDAWOOD [facility] [address] [place] [phone] Carol Dwyer MD Social History Tobacco Use [...] Visit [facility] [address] [place] [phone] Mane Rivera MD [address] [facility] [address] [place] [address] documented as of this encounter Visit Diagnoses Not on filedocumented in this encounter Care Teams Production Mechanic Relationship Specialty Start Date End Date Amilcar Harvey MD [address] [place] [address] [address] CHRISTIANO ABDULLAHI PCP - General 02/28/19 documented as of this encounter
--- OUTSIDE RECORDS SUMMARY | 2024-05-30 12:21 | XMS_ITS | Encounter Summary ---
Author Organization [facility], Address [address] [place] [address] Phone Care Team Providers Care Auditing Manager Name Role Phone Amilcar Harvey MD Primary Care Provider [phone] Encounter Details Date Type Department Care Team (Late st Contact Info) Description 01/05/2023 Documentation Only [facility], [facility] Dr Loretta ALMEIDAWOOD [facility] [address] [place] [phone] Carol Dwyer MD Social History Tobacco Use [...] Visit [facility] [address] [place] [phone] Mane Rivera MD [address] [facility] [address] [place] [address] documented as of this encounter Visit Diagnoses Not on filedocumented in this encounter Care Teams Auditing Manager Relationship Specialty Start Date End Date Amilcar Harvey MD [address] [place] [address] [address] CHRISTIANO ABDULLAHI PCP - General 02/28/19 documented as of this encounter
--- OUTSIDE RECORDS SUMMARY | 2024-05-30 12:21 | XMS_ITS | Encounter Summary ---
Author Organization [facility], Address [address] [place] [address] Phone Care Team Providers Care Lean Manufacturing Leader Name Role Phone Amilcar Harvey MD Primary Care Provider Encounter Details Date Type Department Care Team (Late st Contact Info) Description 01/26/2020 Orders Only [facility] - [facility] [address] [facility] [address] [place] [address] Carol Dwyer MD Chronic kidney disease stage 3 Social History Tobacco Use Types Packs/Day Years [...] Visit [facility] [address] [facility] [address] [place] [phone] Mane Rivera MD [address] [facility] [address] [place] [address] documented as of this encounter Visit Diagnoses Diagnosis Chronic kidney disease stage 3 (HCC) documented in this encounter Care Teams Lean Manufacturing Leader Relationship Specialty Start Date End Date Amilcar Harvey MD [address] [place] [address] [address] [place] PCP - General 02/28/19 documented as of this encounter
--- OUTSIDE RECORDS SUMMARY | 2024-05-30 12:21 | XMS_ITS | Encounter Summary ---
Author Organization [facility], Address [address] [place] [address] Phone Care Team Providers Care Production Staff Worker Name Role Phone Amilcar Harvey MD Primary Care Provider [phone] Encounter Details Date Type Department Care Team (Late Contact Info) Description 07/26/2020 Orders Only [facility] - [facility] [address] [place] [address] Carol Dwyer MD Chronic kidney disease stage [...] Visit [facility] [address] [place] [phone] Mane Rivera MD [address] [facility] [address] [place] [address] documented as of this encounter Visit Diagnoses Diagnosis Chronic kidney disease stage 3 (HCC) documented in this encounter Care Teams Production Staff Worker Relationship Specialty Start Date End Date Amilcar Harvey MD [address] [place] [address] DRIVE [address] [place] PCP - General 02/28/19 documented as of this encounter
--- OUTSIDE RECORDS SUMMARY | 2024-05-30 12:21 | XMS_ITS | Clinical Summary ---
Author Organization [facility] Address [address] [facility] [address] [place] [address] [place] [address] Phone Care Team Providers Care Spike Maker Name Role Phone Amilcar Harvey MD Primary Care Provider [phone] Allergies Active Allergy Reactions Criticality Noted Date Comments Codeine Other (see comments) 07/19/2019 Medications dilTIAZem CD (CARDIZEM CD) 240 MG 24 hr capsule Take 1 capsule by mouth 1 (one) time each day in the evening Active LORazepam (ATIVAN) 1 MG tablet Take 1 tablet by mouth 1 (one) time each day in the evening 12/31/2016 Active rivaroxaban (XARELTO) 15 MG tablet Take 1 tablet by mouth 1 (one) time each day in the evening Active Cholecalciferol 50 MCG (2000 UT) capsule Take 1 capsule by mouth 1 (one) time each day Active diphenhydrAMINE (BENADRYL) 25 MG tablet Take 12.5 mg by mouth at night if needed for itching Active lisinopril 20 MG tablet Take 20 mg by mouth 1 (one) time each day 03/10/2022 Active Active Problems Problem Noted Date Diagnosed Date Preoperative state 07/26/2023 alf current use of anticoagulant History of adenomatous polyp of colon 07/26/2023 Screening for malignant neoplasm of rectum 07/25 Encounter for screening for malignant neoplasm o f colon 07/26/2023 Diverticulosis of colon 07/26/2023 Chronic kidney disease, stage 4 (severe) 024 Chronic kidney disease due to hypertension 07/25 Renal osteodystrophy 07/26/2023 Stage 3b chronic kidney disease 04/28/2021 Hyperparathyroidism due to renal insufficiency 0 07/25/2020 Essential hypertension 01/30/2020 Hyperlipidemia 08/03/2019 Proteinuria 07/19/2019 Hyperkalemia 07/19/2019 Kidney failure 07/19/2019 Anemia in chronic kidney disease 07/19/2019 Atrial fibrillation Resolved Problems Problem Noted Date Diagnosed Date Resolved Date Chronic kidney disease stage 3 07/19/2019 04/28/2021 Gout 01/04/2023 Encounters Date Type Department Care Team Description 05/30/2024 Orders Only [facility] [address] [facility] [address] [place] [address] Mane Rivera MD from Last 3 Months Immunizations Name Administration Dates Next Due Influenza Split High Dose Preservative Free IM 0 01/12/2017 Influenza, Unspecified 01/24/2021 Family History Medical History Relation Comments Gout Brother Heart disease Brother [place] Hypertension Brother Kidney disease Brother Heart disease Father [place] Hypertension Father Dementia Mother Kidney disease Sibling 1 SISTER, BROTHER Hypertension Sibling 2 SISTER , BROTHER Hypertension Sister Kidney disease Sister Relation Status Comments Brother Father Mother Alive Sibling 1 Sibling 2 Sister Social History Tobacco Use Types Packs/Day Years Used Date Smoking Tobacco: Never Alcohol Use Standard Drinks/Week Comments Yes 0 (1 standard drink = 0.6 oz pure alcohol) Alcoholic Drinks/day: Occasional social drink Comments Unknown Sex and Gender Information Value Date Recorded Sex Assigned at Not on file Legal Sex Female 4:33 PM EST Gender Identity Not on file Sexual Orientation Not on file Last Filed Vital Signs Vital Sign Reading Time Taken Comments Blood Pressure 130/67 11/29/2023 1:15 PM EDT Pulse 69 11/29/2023 1:15 PM EDT Temperature 36.7 ??C (98 ??F) 01/26/2019 12: 00 PM EDT Respiratory Rate 14 04/21/2023 11:2 9 AM EST Oxygen Saturation 98% 11/29/2023 1:15 PM EDT Inhaled Oxygen Concentration - - Weight 83.4 kg (183 lb 12.8 oz) 11/29/2023 1:15 PM EDT Height 162.6 cm (5' 4 ) 04/21/2023 11:2 9 AM EST Body Mass Index 31.55 04/21/2023 11:29 AM EST Plan of Treatment Upcoming Encounters Date Type Department Care Team (Late st Contact Info) Description 06/05/2024 1:15 PM EST Office Visit [facility] [address] [place] [address] Mane Rivera MD [address] [facility] [address] [place] [address] Health Maintenance Due Date Last Done Comments Breast Cancer Screening 1955 Pneumococcal Vaccine: 65+ Years (1 of 2 - PCV) 1961 Colorectal Cancer Screening: Annual FOBT 02/22/2004 Colorectal Cancer Screening: Colonoscopy 02/22/2004 Colorectal Cancer Screening: Sigmoidoscopy 02/22/2004 Influenza Vaccine (#1) 2023 , 01/12/2017 Hepatitis B Vaccine Aged Out No longe r eligible based on patient's age to complete this topic Procedures Procedure Name Priority Date/Time Associated Diagnosis Comments CBC AND DIFFERENTIAL Routine 05/30/2024 11:51 AM EST URINALYSIS WITH MICROSCOPIC Routine 05/30/2024 11:51 AM EST from Last 3 Months Results * (ABNORMAL) Urinalysis with microscopic (05/30/2024 11:51 AM EST) Color Urine Yellow See orde r comments Appearance Urine Cloudy See order comments pH Urine 5.5 5.0 - 9.0 See order comments Glucose Urine Negative Negative mg/dL See order comments Blood, Urine Negative Negative See ord er comments Specific [place] Urine 1.020 1.005 - 1.025 See order comments Protein Urine 100 (2+)(A) Neg-Trace mg/dL See order comments Ketones, Urine Trace Negative mg/dL See order comments Nitrite, Urine Negative Negative See o rder comments Leukocyte Esterase Urine Small (1+)(A) Negative See order comments RBC, Urine 3-5(A) 0 - 2 /HPF See orde r comments WBC 11-20(A) 0 - 5 /HPF See order comments Squamous Epithelial, Urine 11-20 0 - 2 /HPF See order comments Bacteria, Urine 1+ None Seen See order comments Hyaline Casts, Urine 6-10 0 - 2 /LPF See order comments 05/30/2024 11:5 1 AM EST 05/30/2024 11:51 AM EST us Mane Rivera MD LAB URINE ORDERABLES Final Re sult [place] See order comments [place] [address] * (ABNORMAL) CBC and Differential (05/30/2024 11:51 AM EST) WBC 5.2 4.8 - 10.8 X10*3/uL See order comments RBC 4.32 4.20 - 5.50 X10*6/uL See order comments Hgb 13.5 12.0 - 16.0 g/dl See order comments Hematocrit 41.2 37.0 - 47.0 % See order comments MCV 95.4 80.0 - 98.0 fL See order comments MCH 31.3 27.0 - 33.0 pg See order comments MCHC 32.8 31.0 - 35.0 g/dl See order comments RDW 12.4 11.0 - 16.0 % See order comments Platelets 233 160 - 400 X10*3/uL See order comments MPV 9.7 9.4 - 12.3 fL See order comments Neutrophils % Auto 68.9 45 - 73 % See order comments Immature Granulocytes 0.4 0.0 - 0.4 % See order comments Lymphocytes Relative 19.4(L) 20 - 40 % See order comments Monocytes 7.8 2 - 11 % See order comments Eosinophils Relative 2.5 0 - 4 % See order comments Basophils Relative 1.0 0 - 2 % See order comments nRBC Count 0.0 0.0 - 0.2 /100WBC See order comments Neutrophils Absolute 3.6 2.0 - 8.3 x10*3/uL See order comments Immature Grans (Absolute) 0.02 0.00 - 0.03 X10*3/uL See order comments Lymphocytes Absolute 1.0(L) 1.2 - 4.9 X10*3/uL See order comments Monocytes Absolute 0.4 0.1 - 1.2 X10*3/uL See order comments Eosinophils Absolute 0.1 0.0 - 0.4 X10*3/uL See order comments Basophils Absolute 0.1 0.0 - 0.2 X10*3/uL See order comments NRBC Absolute 0.000 0.0 - 0.012 X10*3/uL See order comments 05/30/2024 11:5 1 AM EST 05/30/2024 11:51 AM EST us Mane Rivera MD LAB BLOOD ORDERABLES Final Re sult [place] See order comments [place] [address] from Last 3 Months Insurance [facility] Care Teams Spike Maker Relationship Specialty Start Date End Date Amilcar Harvey MD [address] [place] PCP - General 02/28/19
--- OUTSIDE RECORDS SUMMARY | 2024-05-30 12:21 | XMS_ITS | Encounter Summary ---
Author Organization [facility] Address [address] [address] Phone Care Team Providers Care Perch Mender Name Role Phone Amilcar Harvey MD Primary Care Provider [phone] Encounter Details Date Type Department Care Team (Late Contact Info) Description 05/30/2024 Orders Only [facility] [address] [place] [address] Mane Rivera MD [address] [address] Social History Tobacco Use Types Packs/Day Years [...] Office Visit [facility] [address] [place] [address] Mane Rivera MD [address] [address] documented as of this encounter Procedures Procedure Name Priority Date/Time Associated Diagnosis Comments URINALYSIS WITH MICROSCOPIC Routine 05/30/2024 11:51 AM EST CBC AND DIFFERENTIAL Routine 05/30/2024 11:51 AM EST documented in this encounter Results * (ABNORMAL) CBC and Differential (05/30/2024 11:51 [...] 1 AM EST 05/30/2024 11:51 AM EST Mane Rivera MD LAB BLOOD ORDERABLES Final Re sult Performing Organization Address [facility] de Phone Number [place] See order comments [place] [address] * (ABNORMAL) Urinalysis with microscopic (05/30/2024 11:51 AM EST) Color Urine Yellow See orde r comments Appearance Urine Cloudy See order comments pH Urine 5.5 5.0 - 9.0 See order comments Glucose Urine Negative Negative mg/dL See order comments Blood, Urine Negative Negative See ord er comments Specific [place] Urine 1.020 1.005 - 1.025 See order [...] 1 AM EST 05/30/2024 11:51 AM EST Mane Rivera MD LAB URINE ORDERABLES Final Re josh Performing Organization Address [facility] de Phone Number [place] See order comments [place] [address] documented in this encounter Visit Diagnoses Not on filedocumented in this encounter Care Teams Perch Mender Relationship Specialty Start Date End Date Amilcar Harvey MD [address] [place] PCP - General 02/28/19 documented as of this encounter
[2024-05-30 12:29] LABS: Albumin Level 3.7 g/dL (3.5-5.0); Anion Gap 13 (12-20); Blood Urea Nitrogen 38 mg/dL (9-16); Calcium 9.7 mg/dL (8.4-10.2); Carbon Dioxide 25 mmol/L (22-29); Chloride 109 mmol/L (96-108); Estimated Glomerular Filt Rate 27; Magnesium 1.9 mg/dL (1.6-2.6); Phosphorus 2.6 mg/dL (2.7-4.5); Potassium 4.7 mmol/L (3.3-5.1); Sodium 142 mmol/L (135-145)
[2024-05-30 12:30] LABS: Creatinine Urine 182.29 mg/dL; Microalbum/Creatinine Ratio Ur 189.2 ug/mg cr (<30); Protein/Creatinine Ratio, Ur 0.29 (<0.2); Total Protein Urine Random 53 mg/dL (<12)
[2024-05-30 12:33] LABS: Parathyroid Hormone Intact 105.5 pg/mL (8.7-77.1)
[2024-05-30 12:51] LABS: Vitamin D 25-OH Total 48.6 ng/mL (>30)
--- NOTE | 2024-06-06 06:13 | PM.PNNEP ---
Subjective Subjective Date of Service: 06/05/24 Interval history: RTANE patient followed by me re: stable SCr withg SCr 1.5-2.0 for past 5 years w ith low grade but signif Uprot Full notes avoial in our office TText me or call office any questions Objective Data Labs 05/30/24 11:25 05/30/24 11:25 Procedures Date of Service Date of Service: 06/06/24 Assessment & Plan Time Spent With Patient Time: Total time managing care of this patient today ____ minutes.
== END 2024-05-30 11:19 | disposition home or self-care (01) ==
LOC: HO.10HDL 11:18
PROVIDERS: Visit Provider Internal Medicine Nephrology
DX: N18.4 Chronic kidney disease, stage 4 (severe) (principal); R80.1 Persistent proteinuria, unspecified; N25.0 Renal osteodystrophy
CPT/HCPCS: 36415; 80051; 81001; 82040; 82043; 82306; 82310; 82565; 82570; 83735; 83970; 84100; 84156; 84520; 85025

== ENCOUNTER 2024-09-29 14:54 | Outpatient (AMB) | payer MEDICARE, SELFPAY ==
--- OUTSIDE RECORDS SUMMARY | 2024-09-29 14:57 | XMS_ITS | Encounter Summary ---
Author Organization [facility], Address [address] [place] [address] Phone Care Team Providers Care Transportation Worker Name Role Phone Amilcar Harvey MD Primary Care Provider [phone] Encounter Details Date Type Department Care Team (Late st Contact Info) Description 01/05/2023 Documentation Only [facility], [facility] [address] [place] [phone] Carol Dwyer MD Social History Tobacco Use [...] Care Team (Late st Contact Info) Description 01/08/2025 2:15 PM EDT Office Visit [facility] [address] [place] [phone] Mane Rivera MD [address] [facility] [address] [place] [address] documented as of this encounter Visit Diagnoses Not on filedocumented in this encounter Care Teams Transportation Worker Relationship Specialty Start Date End Date Amilcar Harvey MD [address] [place] [address] [address] [place] PCP - General 11/5/19 documented as of this encounter
--- NOTE | 2024-09-29 15:04 | MHC.PC.OV ---
Vital Signs 09/29/24 15:06 09/29/24 15:26 Height 5 ft 4 in Weight 87.543 kg BMI 33.1 BP 152/80 H 134/80 Pulse 67 Pulse Source Pulse Oximeter Temp 97.1 F Temp Source Temporal Artery Scan Pulse Oximetry (%) 98 Oxygen Delivery Method Room Air Intake Visit Reasons: Routine Clerical Methods Analyst Required: No Accompanied by: Self / Same As Patient Allergies codeine Allergy (Intermediate, Verified 09/29/24 15:04) tachycardia HPI HPI Comments History of Present Illness Details 69-year-old female with history of hypertension, CKD stage 4, J LUIS, paroxysmal atrial fibrillation, anxiety presents to the office today for management of chronic conditions as well as to establish care. CKD stage 4-last GFR 27. Following with Dr. Rivera. Reports her brother is considering renal transplant, but she is unsure about it. Hypertension-blood pressure in the office 134/80. Compliant with lisinopril 20 mg daily and diltiazem 240 mg daily. Paroxysmal atrial fibrillation-follows with Dr. Dunlap. Anticoagulated with Xarelto and denies any easy bruisability or bleeding. Rate control with diltiazem. Asymptomatic Anxiety/bkfhlrsmqp-WTX-1 19, lu 7 7. She is taking lorazepam as needed. She is not currently following with therapist. She is rested in further medications for her mood. She states that taking vitamin-D and regular exercise with walking is helpful. No SI J LUIS-compliant with CPAP Health maintenance: Last colonoscopy 05/2021 showing tubular adenoma. Following with Dr. Cross, 5 year follow-up Last DEXA scan 02/2022 Last mammogram 02/2022, overdue ROS: General: No fevers, malaise, unintentional weight loss HEENT: No blurred vision, diplopia. No sore throat, nasal congestion, rhinorrhea, sinus pain, ear pain Cardiovascular: No chest pain, palpitations, or leg edema Respiratory: No shortness of breath, wheezing, cough GI: No abdominal pain, nausea, vomiting, diarrhea, constipation, melena, hematochezia : No dysuria, hematuria, increased urinary frequency, decreased urinary output MSK: No myalgia, back pain Neuro: No headaches, weakness, paresthesias Skin: No rashes or lesions PSYCH: see hpi EXAM: Constitutional - Awake and Alert, No apparent distress Eyes - PERRLA, EOMI Cardiovascular - S1S2, RRR, 1+ ble edema Respiratory - Normal lung expansion, Normal respiratory effort, No respiratory distress, CTA bilaterally Extremities - no calf tenderness bilaterally, no swelling Skin - Warm/Dry Neurological - Alert & oriented x3 Psychological - Appropriate affect [facility] Medical History (Updated 09/29/24 @ 16:16 by ISAC Guerin) Anxiety Gout Elevated cholesterol Chronic renal insufficiency Sleep apnea Hx of ectopic Precordial pain Paroxysmal atrial fibrillation HTN (hypertension) CKD (chronic kidney disease) Surgical History Hx of blepharoplasty Hx of ovarian cystectomy History of total abdominal hysterectomy H/O colonoscopy History of surgery on arm Hx of cardiac cath Family History Father CVD (cardiovascular disease) Mother No problems noted. Social History Patient Tobacco Use Status: Never used Tobacco Female Reproductive History Menstrual Age of Menarche: 11 Questionnaire PHQ-9 Over the last 2 weeks, how often have you been bothered by any of the following problems? 1. Little interest or pleasure in doing things: nearly every day 2. Feeling down, depressed, or hopeless: more than half the days 3. Trouble falling or staying asleep, or sleeping too much: nearly every day 4. Feeling tired or having little energy: nearly every day 5. Poor appetite or overeating: more than half the days 6. Feeling bad about yourself - or that you are a failure or have let yourself or your family down: more than half the days 7. Trouble concentrating on things, such as reading the newspaper or watching television: more than half the days 8. Moving or speaking so slowly that other people could have noticed. Or the opposite - being so fidgety or restless that you have been moving around a lot more than usual: more than half the days 9. Thoughts that you would be better off or of hurting yourself in some way: not at all Total score: 19 Source: Developed by Drs. Jayden Keane, Louise Reyes, Kwame Asher and colleagues, with an educational dequan from [employer]. Thrive Questionnaire Date Thrive assessed: 09/29/24 I am a: Patient What is your living situation today?: I have a steady place to live Within the past 12 months, did the food you bought not last and you didn't have the money to get more?: Never true Within the past 12 months, did you worry whether your food would run out before you got money to buy more?: Never true Do you have trouble paying for medicines?: No Do you have trouble getting transportation to medical appointments?: No Do you have trouble paying your heating and electricity bill?: No Do you have trouble taking care of your child, family member or friend?: No Do you have trouble with day-to-day activities such as bathing, preparing meals, shopping, managing finances, etc.?: No Are you currently unemployed and looking for a job?: No Are you interested in more education?: No Please select the resources that you would like help with: None THRIVE Score: 0 LU-7 AMB Questionnaire LU-7 Date LU - 7 assessed: 09/29/24 Feeling nervous, anxious, or on edge: 0 = Not at all Not being able to stop or control worryin = Not at all Worrying too much about different things: 0 = Not at all Trouble relaxin = Not at all Being so restless that it is hard to sit still: 0 = Not at all Becoming easily annoyed or irritable: 0 = Not at all Feeling afraid as if something awful might happen: 0 = Not at all Total LU-7 score (0-4 normal; 5-9 mild; 10-14 moderate; 15-21 severe): 0 Source: Developed by Drs. Jayden Keane, Louise Reyes, Kwame Asher and colleagues, with an educational dequan from [employer]. Physical exam (Primary Care) Vital Signs: Last Vital Signs Temp 97.1 F 09/29/24 15:06 Pulse 67 09/29/24 15:06 BP 134/80 09/29/24 15:26 Pulse Ox 98 09/29/24 15:06 Oxygen Delivery Method Room Air 09/29/24 15:06 BMI result Body Mass Index 33.1 Tobacco/Smoking Status: Tobacco use Status Patient Tobacco Use Status Never used Tobacco 06/06/25 15:11 PHQ-9: PHQ-9 Score PHQ-9: Total score 19 09/29/24 16:14 Thrive Assessment: Date of Thrive Assessment Date Thrive assessed 09/29/24 09/29/24 15:38 Coding Level of Care Code New Pt Level 4 (49137) Complex EM visit Add On G2211 Diagnoses HTN (hypertension) I10 CKD (chronic kidney disease) N18.9 Paroxysmal atrial fibrillation I48.0 Depression with anxiety F41.8 Assessment & Plan Assessment & Plan (1) HTN (hypertension): Code(s): I10 - Essential (primary) hypertension Category: Medical Plan: Controlled. Continue lisinopril 20 mg daily and diltiazem 240 mg daily. Low-sodium diet (2) CKD (chronic kidney disease): Code(s): N18.9 - Chronic kidney disease, unspecified Category: Medical Plan: BMP ordered. Continue following with Dr. Rivera (3) Paroxysmal atrial fibrillation: Comment: taking xarelto - sees [facility] - OV 05/19/21 on chart Code(s): I48.0 - Paroxysmal atrial fibrillation Category: Medical Plan: Rate controlled. Continue Xarelto for anticoagulation and diltiazem for rate control. Follow-up with Dr. Dunlap as scheduled. (4) Depression with anxiety: Code(s): F41.8 - Other specified anxiety disorders Category: Medical Plan: Uncontrolled. She is not interested in medication. Continue lorazepam as needed. Provided website to look for therapists in the area and encouraged to follow-up. Plan Follow-up in the office in 4 months. Labs to be completed following visit today as well as several days prior to next visit. Screening mammogram ordered Orders: Orders Vitamin D 25-OH Total Today E66.9 - Obesity, unspecified, F41.9 - Anxiety disorder, unspecified, I10 - Essential (primary) hypertension, I48.0 - Paroxysmal atrial fibrillation, N18.9 - Chronic kidney disease, unspecified Complete Blood Count Auto Diff Today E66.9 - Obesity, unspecified, F41.9 - Anxiety disorder, unspecified, I10 - Essential (primary) hypertension, I48.0 - Paroxysmal atrial fibrillation, N18.9 - Chronic kidney disease, unspecified MM tomosynthesis screening BI Today Z12.31 - Encounter for screening mammogram for malignant neoplasm of breast Basic Metabolic Panel 4 Months N18.9 - Chronic kidney disease, unspecified Basic Metabolic Panel Today E66.9 - Obesity, unspecified, F41.9 - Anxiety disorder, unspecified, I10 - Essential (primary) hypertension, I48.0 - Paroxysmal atrial fibrillation, N18.9 - Chronic kidney disease, unspecified Hemoglobin A1c Today E66.9 - Obesity, unspecified, F41.9 - Anxiety disorder, unspecified, I10 - Essential (primary) hypertension, I48.0 - Paroxysmal atrial fibrillation, N18.9 - Chronic kidney disease, unspecified Lipid Panel Today E66.9 - Obesity, unspecified, F41.9 - Anxiety disorder, unspecified, I10 - Essential (primary) hypertension, I48.0 - Paroxysmal atrial fibrillation, N18.9 - Chronic kidney disease, unspecified TSH reflex Free T4 Today E66.9 - Obesity, unspecified, F41.9 - Anxiety disorder, unspecified, I10 - Essential (primary) hypertension, I48.0 - Paroxysmal atrial fibrillation, N18.9 - Chronic kidney disease, unspecified Patient Instructions: [email or web address]
[2024-09-29 15:06] VITALS: BP 152/80; PULSE 67; TEMP 36.2; O2SAT 98; BMI 33.1
[2024-09-29 15:26] VITALS: BP 134/80
== END 2024-09-29 15:37 | disposition home or self-care (01) ==
LOC: HO.HMCHD 14:55
PROVIDERS: PCP Physician Assistant; Visit Provider Physician Assistant
DX: I12.9 Hypertensive chronic kidney disease with stage 1 through stage 4 chronic kidney disease, or unspecified chronic kidney disease (principal); N18.9 Chronic kidney disease, unspecified; I48.0 Paroxysmal atrial fibrillation; F41.8 Other specified anxiety disorders

== ENCOUNTER → 2024-09-29 14:54 | Outpatient (BNVA) | payer MEDICARE, SELFPAY | PROVIDERS: PCP Physician Assistant; Visit Provider Physician Assistant | DX: I12.9 Hypertensive chronic kidney disease with stage 1 through stage 4 chronic kidney disease, or unspecified chronic kidney disease (principal); I48.0 Paroxysmal atrial fibrillation; N18.4 Chronic kidney disease, stage 4 (severe); G47.33 Obstructive sleep apnea (adult) (pediatric); F41.8 Other specified anxiety disorders; E66.9 Obesity, unspecified; Z68.33 Body mass index [BMI] 33.0-33.9, adult | CPT/HCPCS: 96127; 99202 ==

== ENCOUNTER 2024-10-02 10:31 | Outpatient (REF) | payer MEDICARE, SELFPAY ==
--- OUTSIDE RECORDS SUMMARY | 2024-10-02 11:50 | XMS_ITS | Encounter Summary ---
Author Organization [facility], Address [address] [place] [address] Phone Care Team Providers Care Aluminum Siding Installer Name Role Phone Amilcar Harvey MD Primary Care Provider [phone] Encounter Details Date Type Department Care Team (Late st Contact Info) Description 01/05/2023 Documentation Only [facility], [facility] [address] [place] [phone] Carol Dwyer MD Social History Tobacco Use [...] Visit [facility] [address] [place] [phone] Mane Rivera MD [address] [facility] [address] [place] [address] documented as of this encounter Visit Diagnoses Not on filedocumented in this encounter Care Teams Aluminum Siding Installer Relationship Specialty Start Date End Date Amilcar Harvey MD [address] [place] [address] [address] [place] PCP - General 11/5/19 documented as of this encounter
[2024-10-02 13:11] LABS: MANUAL DIFF FLAG NO
[2024-10-02 13:27] LABS: Basophils Percent Auto 0.8 % (0-2); Eosinophils Absolute Auto 0.1 X10*3/uL (0.0-0.4); Eosinophils Percent Auto 2.1 % (0-4); Hematocrit 40.6 % (37.0-47.0); Hemoglobin 13.5 g/dl (12.0-16.0); Imm Gran Abs Auto 0.02 X10*3/uL (0.00-0.03); Imm Gran Pct Auto 0.4 % (0.0-0.4); Lymphocytes Percent Auto 18.2 % (20-40); Mean Corpuscular HGB Conc 33.3 g/dl (31.0-35.0); Mean Corpuscular Hemoglobin 31.3 pg (27.0-33.0); Mean Corpuscular Volume 94.2 fL (80.0-98.0); Mean Platelet Volume 10.2 fL (9.4-12.3); Monocytes Absolute Auto 0.3 X10*3/uL (0.1-1.2); Monocytes Percent Auto 6.3 % (2-11); Neutrophils Absolute Auto 3.8 x10*3/uL (2.0-8.3); Neutrophils Percent Auto 72.2 % (45-73); Platelet Count 223 X10*3/uL (160-400); Red Blood Count 4.31 X10*6/uL (4.20-5.50); Red Cell Distribution Width 11.9 % (11.0-16.0); White Blood Count 5.2 X10*3/uL (4.8-10.8)
[2024-10-02 13:47] LABS: Estimated Average Glucose 108 mg/dL; Hemoglobin A1c % 5.4 % (<6.0)
[2024-10-02 13:57] LABS: Anion Gap 12 (12-20); Blood Urea Nitrogen 36 mg/dL (9-16); Calcium 9.7 mg/dL (8.4-10.2); Carbon Dioxide 25 mmol/L (22-29); Chloride 108 mmol/L (96-108); Cholesterol 198 mg/dL (<200); Estimated Glomerular Filt Rate 30; Glucose Random 105 mg/dL (60-115); HDL Cholesterol 64 mg/dL (>40); LDL Cholesterol Calculated 116 mg/dL (<100); Potassium 4.5 mmol/L (3.3-5.1); Sodium 140 mmol/L (135-145); Triglycerides 91 mg/dL (<150)
[2024-10-02 14:05] LABS: TSH reflex Free T4 1.23 uIU/mL (0.32-4.0)
== END 2024-10-02 10:32 | disposition home or self-care (01) ==
LOC: HO.10HDL 10:31
PROVIDERS: Visit Provider Physician Assistant
DX: I10 Essential (primary) hypertension (principal); N18.9 Chronic kidney disease, unspecified; I48.0 Paroxysmal atrial fibrillation; F41.9 Anxiety disorder, unspecified; E66.9 Obesity, unspecified; I12.9 Hypertensive chronic kidney disease with stage 1 through stage 4 chronic kidney disease, or unspecified chronic kidney disease
CPT/HCPCS: 36415; 80048; 80061; 82306; 83036; 84443; 85025

== ENCOUNTER 2024-11-01 09:22 | Outpatient (REF) | payer MEDICARE, SELFPAY ==
--- NOTE | ~2024-11-01 | MM_ITS ---
EXAMINATION: MM SCREENING DIGITAL BREAST TOMOSYNTHESIS, BILATERAL CLINICAL INFORMATION: Screening. Asymptomatic. COMPARISON: Mammography: Comparison is made with available priors TECHNIQUE: Digital breast mammography with tomosynthesis is performed in both the craniocaudal and mediolateral oblique views along with computer-aided detection (CAD). FINDINGS: The breasts are heterogeneously dense, which may obscure small masses (ACR BI-RADS breast composition Category c). Left marker clip. There are no significant masses, abnormal calcifications, or other abnormalities. MM/MM tomosynthesis screening BI IMPRESSION: No mammographic evidence of malignancy. ASSESSMENT: BI-RADS BI-RADS 2 - Benign Findings RECOMMENDATION: Routine annual mammography screening. 1 year F/U This examination should not preclude the clinical evaluation of a suspicious palpable abnormality. This patient's information was entered into a reminder system with a target due date for their next mammogram. Electronically signed by: Corinne Hester DO 11/14/2024 09:34 AM EDT
--- OUTSIDE RECORDS SUMMARY | 2024-11-01 09:40 | XMS_ITS | Patient Health Record ---
Author Organization [facility] Address [address] [place] [address] Care Team Providers Care Rfp Writer Name Role Phone Amilcar Harvey MD Primary Care Provider Jayden Cruz Unavailable [phone] Allergies Allergen (clinical drug ingredient) Drug/Non Drug Allergy documented on EMR Reaction Allergy Type Onset Date Status Codeine Phosphate Unknown Drug Allergy Active Reason For Referral No Information Medications Medication SIG (Take, Route, Frequency, Duration) Notes Start Date End Date Status Allopurinol Active Lisinopril Active dilTIAZem HCl ER Coated Beads 240 MG Oral for 30 Active Xarelto 15 MG Oral for 90 Acti ve Lovastatin Active Lorazepam Active Immunizations Vaccine Route Administration Date Status Comme nts Influenza Unknown 01/24/2021 Administered Social History Alcohol Screen Question Answer Notes Did you have a drink containing alcohol in the p ast year? No Points 0 Interpretation Negative Section Notes: Nonsmoker; no sig alcohol Nonsmoker; no sig alcohol Problems Problem Type SNOMED Code ICD Code Onset Dates Problem Status W/U Status Risk Notes Problem 043481811 Encounter for screening for malignant neoplasm of colon (Z12.11) Active confirmed Problem 062343040 History of adenomatous polyp of colon (Z86.010) Active confirmed Problem Screening for malignant neoplasm of rectum (784662729) Encounter for screening for malignant neoplasm of rectum (Z12.12) Active confirmed Problem 75253639 Preprocedural examination (Z01.818) Active confirmed Problem Diverticulosis of colon (750446193) Diverticulosis of colon (K57.30) Active confirmed Problem 807003584 terminal clerk curren t use of anticoagulant (Z79.01) Active confirmed Plan Of Treatment Pending Test Test Name Order Date Pathology 05/30/2021 Future Test Test Name Order Date COLONOSCOPY 09/24/2015 COLONOSCOPY 05/06/2021 Insurance Providers Payer Name Payer Address Payer Phone Subscriber Number Group Number Insured Name Patient Relationship to Insured Coverage Start Date Coverage End Date [facility] [address] [place] [phone] [id number] WALTER NunnDAMON Self - patient is the insured Medical (General) History Medical History History ICD Code Screening colonoscopy 06-27-19 11--1 tubular adenoma, sigmoid diverticulosis, internal hemorrhoids Hx of atrial fibrillation--r esolved after the dx of sleep apnea and she started using the CPAP Stage 2 chronic renal disease--Dr. Dwyer Hyperlipidemia Hypertension Denies PR,DM,CVA,Lung disease Gout Anxiety Sleep apnea--uses CPAP Negative colonoscopy in 12/2015 Surgical History Surgery Date(Month/Year) Ectopic prenancy Ovarian cyst FRANSISCO
--- OUTSIDE RECORDS SUMMARY | 2024-11-01 09:40 | XMS_ITS | Encounter Summary ---
Author Organization [facility], Address [address] [place] [address] Phone Care Team Providers Care Boom Boss Name Role Phone Amilcar Harvey MD Primary Care Provider [phone] Encounter Details Date Type Department Care Team (Late st Contact Info) Description 01/05/2023 Documentation Only [facility], [facility] [address] Loretta ALMEIDAWOOD [address] [place] [phone] Carol Dwyer MD Social History Tobacco Use [...] Visit [facility] [address] [place] [phone] Mane Rivera MD [address] [facility] [address] [place] [address] documented as of this encounter Visit Diagnoses Not on filedocumented in this encounter Care Teams Boom Boss Relationship Specialty Start Date End Date Amilcar Harvey MD [address] [place] [address] DRIVE [address] [place] PCP - General 11/5/19 documented as of this encounter
== END 2024-11-01 09:23 | disposition home or self-care (01) ==
LOC: HO.MAMMO 09:22
PROVIDERS: PCP Physician Assistant; Visit Provider Physician Assistant
DX: Z12.31 Encounter for screening mammogram for malignant neoplasm of breast (principal)
CPT/HCPCS: 77063; 77067

== ENCOUNTER → 2024-11-01 09:45 | Outpatient (BNV) | payer MEDICARE, SELFPAY | PROVIDERS: PCP Physician Assistant; Visit Provider Internal Medicine | DX: Z12.31 Encounter for screening mammogram for malignant neoplasm of breast (principal) | CPT/HCPCS: 77063; 77067 ==

== ENCOUNTER 2024-12-28 13:46 | Outpatient (REF) | payer MEDICARE, SELFPAY ==
[2024-12-28 14:15] LABS: MANUAL DIFF FLAG NO
[2024-12-28 14:48] LABS: Hematocrit 40.9 % (37.0-47.0); Hemoglobin 13.7 g/dl (12.0-16.0); Imm Gran Abs Auto 0.02 X10*3/uL (0.00-0.03); Imm Gran Pct Auto 0.4 % (0.0-0.4); Lymphocytes Absolute Auto 1.1 X10*3/uL (1.2-4.9); Mean Corpuscular HGB Conc 33.5 g/dl (31.0-35.0); Mean Corpuscular Hemoglobin 31.2 pg (27.0-33.0); Mean Corpuscular Volume 93.2 fL (80.0-98.0); NRBC Abs Auto 0.000 X10*3/uL (0.0-0.012); NRBC Pct Auto 0.0 /100WBC (0.0-0.2); Platelet Count 218 X10*3/uL (160-400); Red Blood Count 4.39 X10*6/uL (4.20-5.50); White Blood Count 5.3 X10*3/uL (4.8-10.8)
--- OUTSIDE RECORDS SUMMARY | 2024-12-28 15:03 | XMS_ITS | Encounter Summary ---
Author Organization [facility] [place], Address [address] [place] [address] Phone Care Team Providers Care Cold Mill Supervisor Name Role Phone Amilcar Harvey MD Primary Care Provider [phone] Encounter Details Date Type Department Care Team (Late st Contact Info) Description 01/05/2023 Documentation Only [facility] [place] [facility], [facility] Dr Loretta ALMEIDAWOOD [facility] [address] [place] [phone] Carol Dwyer MD Social History Tobacco Use [...] Care Team (Late st Contact Info) Description 01/04/2025 2:15 PM EDT Office [facility] [address] [place] [phone] Mane Rivera MD [address] [facility] [address] [place] [address] documented as of this encounter Visit Diagnoses Not on filedocumented in this encounter Care Teams Cold Mill Supervisor Relationship Specialty Start Date End Date Amilcar Harvey MD [address] [place] [address] DR[address] [place]ST[place] ABDULLAHI PCP - General 11/5/19 documented as of this encounter
--- OUTSIDE RECORDS SUMMARY | 2024-12-28 15:03 | XMS_ITS | Clinical Summary ---
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 [address] [facility] [address] [place] [address] Mane Rivera MD from Last 3 Months Immunizations Immunization Administration Dates Next Due Influenza Split High Dose Preservative Free IM 0 01/12/2017 Influenza, Unspecified 01/24/2021 Family History Medical History Relation Comments Gout Brother Heart disease Brother [place] Hypertension Brother Kidney disease Brother Heart disease Father [place] Hypertension Father Dementia Mother Kidney disease Sibling [...] Sign Reading Time Taken Comments Blood Pressure 128/70 06/05/2024 1:01 PM EST Pulse 78 06/05/2024 1:01 PM EST Temperature 36.7 C (98 F) 01/26/2019 12:00 PM EDT Respiratory Rate 14 04/21/2023 11:29 AM EST Oxygen Saturation 99% 06/05/2024 1:01 PM EST Inhaled Oxygen Concentration - - Weight 85.7 kg (189 lb) 06/05/2024 1:01 PM EST Height 162.6 cm (5' 4 ) 04/21/2023 11:29 AM EST Body Mass Index 32.44 04/21/2023 11:29 AM EST Plan of Treatment Upcoming Encounters Date Type Department Care Team (Late st Contact Info) Description 01/04/2025 2:15 PM EDT Office [facility] [address] [place] [address] Mane Rivera MD [address] [facility] [address] [place] [address] Health Maintenance Due Date Last Done Comments Breast Cancer Screening 1955 Pneumococcal Vaccine: 50+ Years (1 of 2 - PCV) 1974 Colorectal Cancer Screening: Annual FOBT 02/22/2004 Colorectal Cancer Screening: Colonoscopy 02/22/2004 Colorectal Cancer Screening: Sigmoidoscopy 02/22/2004 Influenza Vaccine (#1) 2024 , 01/12/2017 Hepatitis B Vaccine Aged Out No longe r eligible based on patient's age to complete this topic Procedures Procedure Name Priority Date/Time Associated Diagnosis Comments CBC AND DIFFERENTIAL Routine 12/28/2024 2:12 PM EDT from Last 3 Months Results * (ABNORMAL) CBC and Differential (12/28/2024 2:12 PM EDT) WBC 5.3 4.8 - 10.8 X10*3/uL See order comments RBC 4.39 4.20 - 5.50 X10*6/uL See order comments Hgb 13.7 12.0 - 16.0 g/dl See order comments Hematocrit 40.9 37.0 - 47.0 % See order comments MCV 93.2 80.0 - 98.0 fL See order comments MCH 31.2 27.0 - 33.0 pg See order comments MCHC 33.5 31.0 - 35.0 g/dl See order comments RDW 12.0 11.0 - 16.0 % See order comments Platelets 218 160 - 400 X10*3/uL See order comments MPV 10.1 9.4 - 12.3 fL See order comments Neutrophils % Auto 69.8 45 - 73 % See order comments Immature Granulocytes 0.4 0.0 - 0.4 % See order comments Lymphocytes Relative 19.8(L) 20 - 40 % See order comments Monocytes 7.5 2 - 11 % See order comments Eosinophils Relative 1.7 0 - 4 % See order comments Basophils Relative 0.8 0 - 2 % See order comments nRBC Count 0.0 0.0 - 0.2 /100WBC See order comments Neutrophils Absolute 3.7 2.0 - 8.3 x10*3/uL See order comments Immature Grans (Absolute) 0.02 0.00 - 0.03 X10*3/uL See order comments Lymphocytes Absolute 1.1(L) 1.2 - 4.9 X10*3/uL See order comments Monocytes Absolute 0.4 0.1 - 1.2 X10*3/uL See order comments Eosinophils Absolute 0.1 0.0 - 0.4 X10*3/uL See order comments Basophils Absolute 0.0 0.0 - 0.2 X10*3/uL See order comments NRBC Absolute 0.000 0.0 - 0.012 X10*3/uL See order comments 12/28/2024 2:12 PM EDT 12/28/2024 2:12 PM EDT us Mane Rivera MD LAB BLOOD ORDERABLES Final Re sult JOHN See order [place] [address] from Last 3 Months Insurance [facility] Care Teams Bowling Alley Refinisher Relationship Specialty Start Date End Date Amilcar Harvey MD [address] [place] PCP - General 02/28/19
--- OUTSIDE RECORDS SUMMARY | 2024-12-28 15:03 | XMS_ITS | Encounter Summary ---
Author Organization [facility], Address [address] [place] [address] Phone Care Team Providers Care Life Skills Worker Name Role Phone Amilcar Harvey MD Primary Care Provider [phone] Encounter Details Date Type Department Care Team (Late st Contact Info) Description 01/05/2023 Documentation Only [facility], [facility] Dr Loretta ALMEIDAWOOD [facility] [address] [place] [phone] Carol Dwyer MD Social History Tobacco Use [...] Visit [facility] [address] [place] [phone] Mane Rivera MD [address] [facility] [address] [place] [address] documented as of this encounter Visit Diagnoses Not on filedocumented in this encounter Care Teams Life Skills Worker Relationship Specialty Start Date End Date Amiclar Harvey MD [address] [place] [address] [address] [place] PCP - General 11/5/19 documented as of this encounter
--- OUTSIDE RECORDS SUMMARY | 2024-12-28 15:03 | XMS_ITS | Encounter Summary ---
Author Organization [facility] [place], Address [address] [place] [address] Phone Care Team Providers Care Photography Professor Name Role Phone Amilcar Harvey MD Primary Care Provider [phone] Encounter Details Date Type Department Care Team (Late Contact Info) Description 01/26/2020 Orders Only [facility] - [facility] [address] [facility] 3 [place] [address] Carol Dwyer MD Chronic kidney disease stage [...] Visit [facility] [address] [place] [phone] Mane Rivera MD [address] [facility] [address] [place] [address] documented as of this encounter Visit Diagnoses Diagnosis Chronic kidney disease stage 3 (HCC) documented in this encounter Care Teams Photography Professor Relationship Specialty Start Date End Date Amilcar Harvey MD [address] [place] [address] [address] [place] PCP - General 02/28/19 documented as of this encounter
--- OUTSIDE RECORDS SUMMARY | 2024-12-28 15:03 | XMS_ITS | Encounter Summary ---
Author Organization [facility] [place], Address [address] [place] [address] Phone Care Team Providers Care Senior Nurse Manager Name Role Phone Amilcar Harvey MD Primary Care Provider [phone] Encounter Details Date Type Department Care Team (Late st Contact Info) Description 01/05/2023 Documentation Only [facility] [place], [facility] [address] Loretta ALMEIDAWOOD [facility] [address] [place] [address] Carol Dwyer MD Social History Tobacco Use [...] Visit [facility] [address] [place] [phone] Mane Rivera MD [address] [facility] [address] [place] [address] documented as of this encounter Visit Diagnoses Not on filedocumented in this encounter Care Teams Senior Nurse Manager Relationship Specialty Start Date End Date Amilcar Harvey MD [address] [place] [address] [address] [place]ST[place] ABDULLAHI PCP - General 11/5/19 documented as of this encounter
--- OUTSIDE RECORDS SUMMARY | 2024-12-28 15:03 | XMS_ITS | Encounter Summary ---
Author Organization [facility] Address [address] [place] [address] Phone Care Team Providers Care Tubing Mill Setter Name Role Phone Amilcar Harvey MD Primary Care Provider Encounter Details Date Type Department Care Team (Latest Contact Info) Description 01/26/2020 Transcribe Orders [facility] [address] [place] [address] Carol Dwyer MD [address] [place] [address], [address] [place] [address] [email or web address] Stage 3 chronic kidney disease, unspecified whether stage 3a or 3b CKD (Primary Dx) Social History Tobacco Use Types Packs/Day Years Used Date Smoking Tobacco: Never Assessed Comments Unknown Sex and Gender Information Value Date Recorded Sex Assigned at Not on file Legal Sex Female 9:55 PM EDT Gender Identity Not on file Sexual Orientation Not on file documented as of this encounter Plan of Treatment Not on file documented as of this encounter Visit Diagnoses Diagnosis Stage 3 chronic kidney disease, unspecified whether stage 3a or 3b CKD- Primary documented in this encounter Care Teams Tubing Mill Setter Relationship Specialty Start Date End Date Amilcar Harvey MD [address] [place] [address] [place] [address] PCP - General Internal Medicine 04/12/17 documented as of this encounter Additional Source Comments The information contained in this document represents components of the legal health record. It is not the complete legal health record.[facility]
--- OUTSIDE RECORDS SUMMARY | 2024-12-28 15:03 | XMS_ITS | Encounter Summary ---
Author Organization [facility] [place], Address [address] [place] [address] Phone Care Team Providers Care Malt Roaster Name Role Phone Amilcar Harvey MD Primary Care Provider [phone] Encounter Details Date Type Department Care Team (Late Contact Info) Description 07/26/2020 Orders Only [facility] - [facility] [address] [facility] 3 [place] [address] Carol Dwyer MD Chronic kidney disease stage [...] Visit [facility] [address] [place] [phone] Mane Rivera MD [address] [facility] [address] [place] [address] documented as of this encounter Visit Diagnoses Diagnosis Chronic kidney disease stage 3 (HCC) documented in this encounter Care Teams Malt Roaster Relationship Specialty Start Date End Date Amilcar Harvey MD [address] [place] [address] [address] [place] PCP - General 02/28/19 documented as of this encounter
--- OUTSIDE RECORDS SUMMARY | 2024-12-28 15:03 | XMS_ITS | Encounter Summary ---
Author Organization [facility], Address [address] [place] [address] Phone Care Team Providers Care Diving Judge Name Role Phone Amilcar Harvey MD Primary Care Provider Encounter Details Date Type Department Care Team (Late st Contact Info) Description 01/05/2023 Documentation Only [facility], [facility] Dr Loretta ALMEIDAWOOD [facility] [address] [place] [phone] Carol Dwyer MD Social History Tobacco Use [...] Visit [facility] [address] [place] [phone] Mane Rivera MD [address] [facility] 204 [place] [address] documented as of this encounter Visit Diagnoses Not on filedocumented in this encounter Care Teams Diving Judge Relationship Specialty Start Date End Date Amilcar Harvey MD [address] [place] [address] [address] [place] ABDULL[place] PCP - General 11/5/19 documented as of this encounter
--- OUTSIDE RECORDS SUMMARY | 2024-12-28 15:04 | XMS_ITS | Encounter Summary ---
Author Organization [facility] Address [address] [facility] [address] [place] [address] Phone Care Team Providers Care Simulation Developer Name Role Phone Amilcar Harvey MD Primary Care Provider Encounter Details Date Type Department Care Team (Latest Contact Info) Description 04/12/2017 Transcribe Orders [facility] Laboratory [address] [place] [address] Carol Dwyer MD [address] [place] [address], [address] [place] [address] [email or web address] Chronic kidney disease, stage III (moderate) (Primary Dx) Social History Tobacco Use Types Packs/Day Years Used Date Smoking Tobacco: Never Assessed Comments Unknown Sex and Gender Information Value Date Recorded Sex Assigned at Not on file Legal Sex Female 9:55 PM EDT Gender Identity Not on file Sexual Orientation Not on file documented as of this encounter Plan of Treatment Not on file documented as of this encounter Procedures Procedure Name Priority Date/Time Associated Diagnosis Comments TOTAL PROTEIN CREATININE RATIO, RANDOM URINE Routine 04/12/2017 12:00 PM EST Chronic kidney disease, stage III (moderate) CBC AND DIFFERENTIAL Routine 04/12/2017 12:00 PM EST Chronic kidney disease, stage III (moderate) PHOSPHORUS Routine 04/12/2017 12:00 PM EST Chronic kidney disease, stage III (moderate) PARATHYROID HORMONE (PTH) Routine 04/12/2017 12:00 PM EST Chronic kidney disease, stage III (moderate) MAGNESIUM Routine 04/12/2017 12:00 PM EST Chronic kidney disease, stage III (moderate) ALBUMIN Routine 04/12/2017 12:00 PM EST Chronic kidney disease, stage III (moderate) BASIC METABOLIC PANEL Routine 04/12/2017 12:00 PM EST Chronic kidney disease, stage III (moderate) documented in this encounter Results * (ABNORMAL) Total protein creatinine ratio, random urine (04/12/2017 12:00 PM EST) URINE TOTAL PROTEIN 27.7 mg/dL [facility] URINE CREATININE 61 mg/dL [facility] URINE TP CRE RATIO 0.45(H) 0 - 0.19 [facility] Urine (Urine) 04/12/2017 12: 00 PM EST 04/12/2017 12:08 PM EST Carol Dwyer MD URINE ORDERABLES Final Result [address] [address] * (ABNORMAL) Parathyroid hormone (PTH) (04/12/2017 12:00 PM EST) PARATHYROID HORMONE 70(H) 15 - 65 pg/mL [facility] Blood 04/12/2017 12:0 0 PM EST 04/12/2017 12:06 PM EST Carol Dwyer MD LAB BLOOD ORDERABLES Final Re sult [address] [address] * CBC and differential (04/12/2017 12:00 PM EST) WBC 4.99 3.40 - 11.20 K/uL [facility] RBC 4.23 3.80 - 4.80 M/uL [facility] HGB 12.9 12.0 - 15.0 g/dL [facility] HCT 39.8 36.0 - 46.0 % [facility] PLT 233 130 - 400 K/uL [facility] MCV 94.1 79.0 - 98.0 fL [facility] MCH 30.5 27.0 - 34.8 pg [facility] MCHC 32.4 31.5 - 36.0 g/dL [facility] RDW 12.6 10.8 - 14.6 % [facility] MPV 10.2 9.4 - 12.4 fl [facility] NRBC 0.00 /100 WBCs [facility] ABSOLUTE NRBC 0.00 K/uL [facility] DIFF METHOD Auto [facility] NEUTS 69.8 45.30 - 77.70 % [facility] LYMPHS 19.0 12.30 - 39.70 % [facility] MONOS 6.8 4.10 - 12.80 % [facility] EOS 3.2 0 - 7.2 % [facility] BASOS 0.6 0 - 2.80 % [facility] Granulocytes, immature (%) 0.6 0.0 - 0.9 % [facility] ABSOLUTE NEUTS 3.48 1.40 - 7.70 K/uL [facility] ABSOLUTE LYMPHS 0.95 0.60 - 3.20 K/uL [facility] ABSOLUTE MONOS 0.34 0.11 - 0.59 K/uL [facility] ABSOLUTE EOS 0.16 0.01 - 0.50 K/uL [facility] ABSOLUTE BASOS 0.03 0.00 - 0.08 K/uL [facility] Granulocytes, immature 0.03 0.00 - 0.05 K/uL [facility] Blood 04/12/2017 12:0 0 PM EST 04/12/2017 12:07 PM EST us Carol Dwyer MD LAB BLOOD ORDERABLES Final Re sult [facility] [address] [place] [address] * (ABNORMAL) Albumin (04/12/2017 12:00 PM EST) ALBUMIN 3.8(L) 3.9 - 4.8 g/dL [facility] Blood 04/12/2017 12:0 0 PM EST 04/12/2017 12:07 PM EST Carol Dwyer MD LAB BLOOD ORDERABLES Final Re sult Performing Organization Address [facility]/ZIP Co de Phone Number [address] [address] * Magnesium (04/12/2017 12:00 PM EST) Pathologist [facility] MAGNESIUM 1.9 1.6 - 2.6 mg/dL [facility] Blood 04/12/2017 12:0 0 PM EST 04/12/2017 12:07 PM EST Craol Dwyer MD LAB BLOOD ORDERABLES Final Re sult Performing Organization Address [facility] Co de Phone Number [address] [address] * (ABNORMAL) Phosphorus (04/12/2017 12:00 PM EST) Pathologist [facility] PHOSPHORUS 2.6(L) 2.7 - 4.5 mg/dL [facility] Blood 04/12/2017 12:0 0 PM EST 04/12/2017 12:07 PM EST Carol Dwyer MD LAB BLOOD ORDERABLES Final Re sult Performing Organization Address [facility] Co de Phone Number [address] [address] * (ABNORMAL) Basic metabolic panel (04/12/2017 12:00 PM EST) Pathologist [facility] SODIUM 142 133 - 146 mmol/L [facility] CHLORIDE 103 96 - 108 mmol/L [facility] POTASSIUM 4.9 3.3 - 5.1 mmol/L [facility] CO2 25 21 - 35 mmol/L [facility] BUN 26(H) 6 - 19 mg/dL [facility] CREATININE 1.60(H) 0.5 - 1.5 mg/dL [facility] GLUCOSE 73 70 - 99 mg/dL [facility] CALCIUM 9.6 8.4 - 10.3 mg/dL [facility] EGFR 33(L) 60 - 1,000 mL/min/1.7 3m2 [facility] Comment:Abnormal if <60. If patient is -[place]ong[place], multiply the result by 1.21. ANION GAP 19 10 - 20 mmol/L [facility] Blood 04/12/2017 12:0 0 PM EST 04/12/2017 12:07 PM EST us Carol Dwyer MD LAB BLOOD ORDERABLES Final Re sult [facility] [address] [place] [address] documented in this encounter Visit Diagnoses Diagnosis Chronic kidney disease, stage III (moderate)- Primary Chronic kidney disease, Stage III (moderate) documented in this encounter Care Teams Simulation Developer Relationship Specialty Start Date End Date Amilcar Harvey MD [address] [place] [address] [place] [address] PCP - General Internal Medicine 04/12/17 documented as of this encounter Additional Source Comments The information contained in this document represents components of the legal health record. It is not the complete legal health record.[facility]
--- OUTSIDE RECORDS SUMMARY | 2024-12-28 15:04 | XMS_ITS | Patient Health Record ---
Author Organization [facility] Address [address] [place] [address] Care Team Providers Care Final Inspector Shuttle Name Role Phone Wes (RETIRED) Amilcar LEWIS Primary Care Provide r Jayden Dos Santos Unavailable [phone] Allergies Allergen (clinical drug ingredient) Drug/Non Drug [...] Problem Status W/U Status Risk Notes Problem 499637742 Encounter for screening for malignant neoplasm of colon (Z12.11) Active confirmed Problem 859874620 History of adenomatous polyp of colon (Z86.010) Active confirmed Problem Screening for malignant neoplasm of rectum (161233174) Encounter for screening for malignant neoplasm of rectum (Z12.12) Active confirmed Problem 09123281 Preprocedural examination (Z01.818) Active confirmed Problem Diverticulosis of colon (716631540) Diverticulosis of colon (K57.30) Active confirmed Problem 315209351 shelter curren t use of anticoagulant (Z79.01) Active confirmed Plan Of Treatment Pending Test Test Name Order Date Pathology 05/30/2021 Future Test Test Name Order Date COLONOSCOPY 09/24/2015 COLONOSCOPY 05/06/2021 Insurance Providers Payer Name Payer Address Payer Phone Subscriber Number Group Number Insured Name Patient Relationship to Insured Coverage Start Date Coverage End Date [facility] [address] [place] [phone] [id number] WALTER Nunn DAMON Self - patient is the insured Medical (General) History Medical History History ICD Code Screening colonoscopy 06-27-19 11--1 tubular adenoma, sigmoid diverticulosis, internal hemorrhoids Hx of atrial fibrillation--r esolved after the dx of sleep apnea and she started using the CPAP Stage 2 chronic renal disease--Dr. Dwyer Hyperlipidemia Hypertension Denies ME,DM,CVA,Lung disease Gout Anxiety Sleep apnea--uses CPAP Negative colonoscopy in 12/2015 Surgical History Surgery Date(Month/Year) Ectopic prenancy Ovarian cyst FRANSISCO
--- OUTSIDE RECORDS SUMMARY | 2024-12-28 15:04 | XMS_ITS | Clinical Summary ---
Author Organization [facility] Address [address] [place] [address] Phone Care Team Providers Care Energy Efficiency Finance Manager Name Role Phone Amilcar Harvey MD Primary Care Provider Social History Tobacco Use Types Packs/Day Years Used Date Smoking Tobacco: Never Assessed Education Answer Date Recorded Are you interested in more education? Not on tristan e 08/21/2022 Are you concerned about learning? Not on file 08/21/2022 No 08/21/2022 No 08/21/2022 Digital Access Answer Date Recorded No 09/21/2022 No 09/21/2022 No 09/21/2022 Reliable internet access at home? Not on file 09/21/2022 Device with a working camera? Not on file Comments Unknown Sex and Gender Information Value Date Recorded Sex Assigned at Not on file Legal Sex Female 9:55 PM EDT Gender Identity Not on file Sexual Orientation Not on file Plan of Treatment Health Maintenance Due Date Last Done Comments Adult Td,Tdap Booster 1955 LIPID PANEL 1955 DEPRESSION SCREENING 1967 SMOKING Hx and SMOKELESS TOB ACCO SCREENING 02/22/1968 HEPATITIS C SCREENING 1973 MAMMOGRAM 1995 COLOGUARD 02/22/2000 COLONOSCOPY 02/22/2000 COLORECTAL CANCER SCREENING 02/22/2000 FIT TEST 02/22/2000 FOBT 02/22/2000 SIGMOIDOSCOPY 02/22/2000 VIRTUAL COLONOSCOPY 02/22/2000 ZOSTER VACCINES (1 of 2) 2005 PNEUMOCOCCAL VACCINES (50+ y ears) (2 of 2 - PCV) 02/03/2016 02/02/2015 OSTEOPOROSIS SCREENING INITI AL (ONE-TIME) 02/22/2020 INFLUENZA VACCINE (#1) 2024 02/02/2015 COVID-19 VACCINE (2024-2 6 season) 2024 08/29/2020 RSV VACCINE (1 - 1-dose 75+ series) 2030 HEPATITIS A VACCINES Aged Out No long er eligible based on patient's age to complete this topic HIB VACCINES Aged Out No longer eligi ble based on patient's age to complete this topic MENINGOCOCCAL VACCINES (ACWY) Aged Out No longer eligible based on patient's age to complete this topic MENINGOCOCCAL VACCINES (B) Aged Out N o longer eligible based on patient's age to complete this topic Medical Devices Not on file Insurance ([place]) [address] [facility] [place] [address] [address] [place] [address] [place] [place] [address] [facility] Care Teams Energy Efficiency Finance Manager Relationship Specialty Start Date End Date Amilcar Harvey MD [address] [place] [address] [place] [address] PCP - General Internal Medicine 04/12/17 Additional Source Comments The information contained in this document represents components of the legal health record. It is not the complete legal health record.[facility]
--- OUTSIDE RECORDS SUMMARY | 2024-12-28 15:04 | XMS_ITS | Encounter Summary ---
Author Organization [facility], Address [address] [place] [address] Phone Care Team Providers Care Central Supply Manager Name Role Phone Amilcar Harvey MD Primary Care Provider [phone] Encounter Details Date Type Department Care Team (Late st Contact Info) Description 09/10/2022 Documentation Only [facility], [facility] Dr Loretta [facility] [address] [place] [phone] Carol Dwyer MD Social History Tobacco Use [...] Visit [facility] [address] [address] [place] [phone] Mane Rivera MD [address] [facility] [address] [place] [address] documented as of this encounter Visit Diagnoses Not on filedocumented in this encounter Care Teams Central Supply Manager Relationship Specialty Start Date End Date Amilcar Harvey MD [address] [place] [address] [address] CHRISTIANO ABDULLAHI PCP - General 11/5/19 documented as of this encounter
--- OUTSIDE RECORDS SUMMARY | 2024-12-28 15:04 | XMS_ITS | Encounter Summary ---
Author Organization [facility] Address [address] [place] [address] Phone Care Team Providers Care Consumer Loan Processor Name Role Phone Amilcar Harvey MD Primary Care Provider Encounter Details Date Type Department Care Team (Latest Contact Info) Description 10/11/2017 Transcribe [address] 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; Hyperkalemia Social History Tobacco Use Types Packs/Day Years Used Date Smoking Tobacco: Never Assessed Comments Unknown Sex and Gender Information Value Date Recorded Sex Assigned at Not on file Legal Sex Female 9:55 PM EDT Gender Identity Not on file Sexual Orientation Not on file documented as of this encounter Plan of Treatment Not on file documented as of this encounter Results * (ABNORMAL) Total protein creatinine ratio, random urine (10/11/2017 11:18 AM EDT) URINE TOTAL PROTEIN 41.5 mg/dL [facility] URINE CREATININE 60 mg/dL [facility] URINE TP CRE RATIO 0.69(H) 0 - 0.19 [facility] Urine (Urine) 10/11/2017 11: 18 AM EDT 10/11/2017 11:20 AM EDT us Carol Dwyer MD URINE ORDERABLES Final Result Performing Organization Address [facility]/ZIP Co de Phone Number [address] [address] * (ABNORMAL) Albumin (10/11/2017 11:11 AM EDT) ALBUMIN 3.7(L) 3.9 - 4.8 g/dL [facility] Blood 10/11/2017 11:1 1 AM EDT 10/11/2017 11:16 AM EDT us Carol Dwyer MD LAB BLOOD ORDERABLES Final Re sult Performing Organization Address [facility] Co de Phone Number [address] [address] * Magnesium (10/11/2017 11:11 AM EDT) MAGNESIUM 1.9 1.6 - 2.6 mg/dL [facility] Blood 10/11/2017 11:1 1 AM EDT 10/11/2017 11:16 AM EDT us Carol Dwyer MD LAB BLOOD ORDERABLES Final Re sult Performing Organization Address [facility] Co de Phone Number [address] [address] * (ABNORMAL) Phosphorus (10/11/2017 11:11 AM EDT) PHOSPHORUS 2.2(L) 2.7 - 4.5 mg/dL [facility] Blood 10/11/2017 11:1 1 AM EDT 10/11/2017 11:16 AM EDT us Carol Dwyer MD LAB BLOOD ORDERABLES Final Re sult Performing Organization Address [facility]/ZIP Co de Phone Number [address] [address] * CBC and differential (10/11/2017 11:11 AM EDT) WBC 4.79 3.40 - 11.20 K/uL [facility] RBC 4.12 3.80 - 4.80 M/uL [facility] HGB 12.8 12.0 - 15.0 g/dL [facility] HCT 38.7 36.0 - 46.0 % [facility] PLT 244 130 - 400 K/uL [facility] MCV 93.9 79.0 - 98.0 fL [facility] MCH 31.1 27.0 - 34.8 pg [facility] MCHC 33.1 31.5 - 36.0 g/dL [facility] RDW 12.2 10.8 - 14.6 % [facility] MPV 10.8 9.4 - 12.4 fl [facility] NRBC 0.00 /100 WBCs [facility] ABSOLUTE NRBC 0.00 K/uL [facility] DIFF METHOD Auto [facility] NEUTS 71.9 45.30 - 77.70 % [facility] LYMPHS 16.9 12.30 - 39.70 % [facility] MONOS 7.7 4.10 - 12.80 % [facility] EOS 2.1 0 - 7.2 % [facility] BASOS 1.0 0 - 2.80 % [facility] Granulocytes, immature (%) 0.4 0.0 - 0.9 % [facility] ABSOLUTE NEUTS 3.44 1.40 - 7.70 K/uL [facility] ABSOLUTE LYMPHS 0.81 0.60 - 3.20 K/uL [facility] ABSOLUTE MONOS 0.37 0.11 - 0.59 K/uL [facility] ABSOLUTE EOS 0.10 0.01 - 0.50 K/uL [facility] ABSOLUTE BASOS 0.05 0.00 - 0.08 K/uL [facility] Granulocytes, immature 0.02 0.00 - 0.05 K/uL [facility] Blood 10/11/2017 11:1 1 AM EDT 10/11/2017 11:16 AM EDT us Carol Dwyer MD LAB BLOOD ORDERABLES Final Re sult Performing Organization Address [facility]/ZIP Co de Phone Number [address] [address] * (ABNORMAL) Basic metabolic panel (10/11/2017 11:11 AM EDT) SODIUM 141 133 - 146 mmol/L [facility] CHLORIDE 103 96 - 108 mmol/L [facility] POTASSIUM 4.4 3.3 - 5.1 mmol/L [facility] CO2 26 21 - 35 mmol/L [facility] BUN 29(H) 6 - 19 mg/dL [facility] CREATININE 1.50 0.5 - 1.5 mg/dL [facility] GLUCOSE 74 70 - 99 mg/dL [facility] CALCIUM 9.6 8.4 - 10.3 mg/dL [facility] EGFR 37(L) >59 mL/min/1.7 3m2 [facility] Comment:If patient is black, multiply result by 1.159. Estimated glomerular filtration rate calculated using the CKD-EPI equation. ANION GAP 16 10 - 20 mmol/L [facility] Blood 10/11/2017 11:1 1 AM EDT 10/11/2017 11:16 AM EDT us Carol Dwyer MD LAB BLOOD ORDERABLES Final Re sult Performing Organization Address [facility]/ZIP Co de Phone Number [address] [address] * (ABNORMAL) Parathyroid hormone (PTH) (10/11/2017 11:11 AM EDT) PARATHYROID HORMONE 73(H) 15 - 65 pg/mL [facility] Blood 10/11/2017 11:1 1 AM EDT 10/11/2017 11:16 AM EDT us Carol Dwyer MD LAB BLOOD ORDERABLES Final Re sult Performing Organization Address City/[facility]/ZIP Co de Phone Number [address] [address] documented in this encounter Visit Diagnoses Diagnosis Chronic kidney disease, stage III (moderate)- Primary Chronic kidney disease, Stage III (moderate) Parenchymal renal hypertension, 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 It is not the complete legal health record.[facility]
--- OUTSIDE RECORDS SUMMARY | 2024-12-28 15:04 | XMS_ITS | Encounter Summary ---
Author Organization [facility] Address [address] [address] Phone Care Team Providers Care Dry Press Operator Name Role Phone Amilcar Harvey MD Primary Care Provider Encounter Details Date Type Department Care Team (Late Contact Info) Description 12/28/2024 Orders Only [facility] [address] [place] [phone] Mane Rivera MD [facility] [address] Social History Tobacco Use Types [...] Encounters Date Type Department Care Team (Late Contact Info) Description 01/04/2025 2:15 PM EDT Office Visit [facility] [address] [place] [address] Mane Rivera MD [facility] [address] documented as of this encounter Procedures Procedure Name Priority Date/Time Associated Diagnosis Comments CBC AND DIFFERENTIAL Routine 12/28/2024 2:12 PM EDT documented in this encounter Results * (ABNORMAL) CBC and Differential (12/28/2024 [...] order comments [place] [address] documented in this encounter Visit Diagnoses Not on filedocumented in this encounter Care Teams Dry Press Operator Relationship Specialty Start Date End Date Amilcar Harvey MD [address] [place] PCP - General 02/28/19 documented as of this encounter
--- OUTSIDE RECORDS SUMMARY | 2024-12-28 15:04 | XMS_ITS | Encounter Summary ---
Author Organization [facility] Address [address] [place] [address] Phone Care Team Providers Care Control Manager Name Role Phone Amilcar Harvey MD Primary Care Provider Encounter Details Date Type Department Care Team (Latest Contact Info) Description 08/09/2018 Transcribe Orders [facility] Laboratory [address] [place] [address] Carol Dwyer MD [address] [place] [address], [address] [place] [address] [email or web address] Chronic kidney disease, stage III (moderate) (Primary [...] documented as of this encounter Results * Albumin (08/09/2018 12:00 PM EDT) ALBUMIN 4.0 3.9 - 4.8 g/dL [facility] Blood 08/09/2018 12:0 0 PM EDT 08/09/2018 12:07 PM EDT us Carol Dwyer MD LAB BLOOD ORDERABLES Final Re sult [facility] [address] [place] [address] * Magnesium (08/09/2018 12:00 PM EDT) MAGNESIUM 2.0 1.6 - 2.6 mg/dL [facility] Blood 08/09/2018 12:0 0 PM EDT 08/09/2018 12:07 PM EDT Carol Dwyer MD LAB BLOOD ORDERABLES Final Re sult [address] [address] * Phosphorus (08/09/2018 12:00 PM EDT) PHOSPHORUS 2.7 2.7 - 4.5 mg/dL [facility] Blood 08/09/2018 12:0 0 PM EDT 08/09/2018 12:07 PM EDT Carol Dwyer MD LAB BLOOD ORDERABLES Final Re sult Performing Organization Address City/[facility]/ZIP Co de Phone Number [address] [address] * (ABNORMAL) Basic metabolic panel (08/09/2018 12:00 PM EDT) SODIUM 144 133 - 146 mmol/L [facility] CHLORIDE 105 96 - 108 mmol/L [facility] POTASSIUM 4.7 3.3 - 5.1 mmol/L [facility] CO2 26 21 - 35 mmol/L [facility] BUN 31(H) 6 - 19 mg/dL [facility] CREATININE 1.60(H) 0.5 - 1.5 mg/dL [facility] GLUCOSE 116(H) 70 - 99 mg/dL [facility] CALCIUM 9.6 8.4 - 10.3 mg/dL [facility] EGFR 34(L) >59 mL/min/1.7 3m2 [facility] Comment:If patient is black, multiply result by 1.159. Estimated glomerular filtration rate calculated using the CKD-EPI equation. ANION GAP 18 10 - 20 mmol/L [facility] Blood 08/09/2018 12:0 0 PM EDT 08/09/2018 12:07 PM EDT us Carol Dwyer MD LAB BLOOD ORDERABLES Final Re sult [facility] [address] [place] [address] documented in this encounter Visit Diagnoses Diagnosis Chronic kidney disease, stage III (moderate)- Primary Chronic kidney disease, Stage III (moderate) documented in this encounter Care Teams Control Manager Relationship Specialty Start Date End Date Amilcar Harvey MD [address] [place] [address] [place] [address] PCP - General Internal Medicine 04/12/17 documented as of this encounter Additional Source Comments The information contained in this document represents components of the legal health record. It is not the complete legal health record.[facility]
[2024-12-28 15:10] LABS: Appearance Urine Clear; Glucose Urine UA Negative (Negative); PH 7.0 (5.0-9.0); Specific Gravity - Urine 1.010 (1.005-1.025); UMIC TRIGGER UA YES
[2024-12-28 15:35] LABS: Albumin Level 4.2 g/dL (3.5-5.0); Anion Gap 14 (12-20); Blood Urea Nitrogen 34 mg/dL (9-16); Calcium 9.7 mg/dL (8.4-10.2); Carbon Dioxide 24 mmol/L (22-29); Chloride 107 mmol/L (96-108); Estimated Glomerular Filt Rate 25; Magnesium 2.3 mg/dL (1.6-2.6); Potassium 4.8 mmol/L (3.3-5.1); Sodium 140 mmol/L (135-145)
[2024-12-28 15:53] LABS: Microalbum/Creatinine Ratio Ur 292.3 ug/mg cr (<30); Protein/Creatinine Ratio, Ur 0.42 (<0.2); Total Protein Urine Random 26 mg/dL (<12)
[2024-12-28 15:54] LABS: Parathyroid Hormone Intact 102.4 pg/mL (8.7-77.1)
== END 2024-12-28 13:47 | disposition home or self-care (01) ==
LOC: HO.LAB 13:46
PROVIDERS: PCP Physician Assistant; Visit Provider Internal Medicine Nephrology
DX: I12.9 Hypertensive chronic kidney disease with stage 1 through stage 4 chronic kidney disease, or unspecified chronic kidney disease (principal); N18.4 Chronic kidney disease, stage 4 (severe)
CPT/HCPCS: 36415; 80051; 81001; 82040; 82043; 82306; 82310; 82565; 82570; 83735; 83970; 84100; 84156; 84520; 85025; 87086

== ENCOUNTER 2025-01-29 08:50 | Outpatient (AMB) | payer MEDICARE, SELFPAY ==
--- NOTE | 2025-01-29 08:43 | A.OFFPC_ITS ---
Vital Signs 01/29/25 08:57 01/29/25 09:21 Height 5 ft 4 in Weight 87.997 kg BMI 33.3 BP 140/90 H 132/78 Blood Pressure Location Lt brachial Position Sitting Respiration 16 Pulse 76 Pulse Source Pulse Oximeter Temp 96.6 F L Temp Source Temporal Artery Scan Pulse Oximetry (%) 97 Oxygen Delivery Method Room Air Intake Visit Reasons: Routine Vocational Adviser Required: No Accompanied by: Self / Same As Patient Allergies codeine Allergy (Intermediate, Verified 01/29/25 08:44) tachycardia Tobacco use date assessed: 01/29/25 Fall risk assessment: No Falls in past year Last assessed Fall Risk: 01/29/25 Dental Screening Dental Screen Date: 01/29/25 Did you have a dental visit in the last 12 months?: Yes Did you have a dental problem in the last 6 months where you did not have access to dental care?: No Was dental information given to patient?: Patient has dentist HPI HPI Comments History of Present Illness Details 69-year-old female with history of hyper tension, CKD stage 4, J LUIS, paroxysmal atrial fibrillation, anxiety presents to the office today for management of chronic condition. Last visit 09/2024 CKD stage 4-last GFR 27-->25. Formerly Dr. Vieira ([facility]). Following with Dr. Rivera. Reports her brother is considering renal transplant, but she is unsure about it. Spoke with Dr. Rivera, when <20, consider his brother pending testing. Unsure if he is actual match yet. Unclear cause of CKD. Sister and brother with Lupus. She was tested, but negative. Recommending jardiance but she is u ncertain. Hypertension-blood pressure in the office 140/90, repeat 132/78. Compliant with lisinopril 20 mg daily and diltiazem 240 mg daily. Paroxysmal atrial fibrillation-follows with Dr. Dunlap annually. Anticoagulated with Xarelto and denies any easy bruisability or bleeding. Rate control with diltiazem. Asymptomatic Anxiety/ixwfmepatr-DZO-7 19, lu 7 7. She is taking lorazepam as needed, usually 1/2 tab every few days for panic. She is not currently following with therapist. She is rested in further medications for her mood. She states that taking vitamin-D and regular exercise with walking is helpful. No SI. Struggling with her her elderly dog's health issues and possible need for euthanasia. J LUIS-compliant with CPAP Concerns: None Health maintenance: Last colonoscopy 05/2021 showing tubular adenoma. Following with Dr. Cross, 5 year follow-up Last DEXA scan 02/2022 Last mammogram 11/17, one year follow up ROS: General: No fevers, malaise, unintentional weight loss HEENT: No blurred vision, diplopia. No sore throat, nasal congestion, rhinorrhea, sinus pain, ear pain Cardiovascular: No chest pain, palpitations, or leg edema Respiratory: No shortness of breath, wheezing, cough GI: No abdominal pain, nausea, vomiting, diarrhea, constipation, melena, hematochezia : No dysuria, hematuria, increased urinary frequency, decreased urinary output MSK: No myalgia, back pain Neuro: No headaches, weakness, paresthesias Skin: No rashes or lesions PSYCH: see hpi EXAM: Constitutional - Awake and Alert, No apparent distress Eyes - PERRLA, EOMI Cardiovascular - S1S2, RRR, 1+ ble edema Respiratory - Normal lung expansion, Normal respiratory effort, No respiratory distress, CTA bilaterally Extremities - no calf tenderness bilaterally, no swelling Skin - Warm/Dry Neurological - Alert & oriented x3 Psychological - Appropriate affect PFSH Medical History (Updated 01/29/25 @ 09:25 by ISAC Guerin) Anxiety Gout Elevated cholesterol Chronic renal insufficiency Sleep apnea Hx of ectopic Precordial pain Paroxysmal atrial fibrillation HTN (hypertension) CKD (chronic kidney disease) Surgical History (Updated 01/29/25 @ 07:22 by Dayanara Love) Hx of blepharoplasty Hx of ovarian cystectomy History of total abdominal hysterectomy H/O colonoscopy (~05/30/21) History of surgery on arm Hx of cardiac cath Family History Father CVD (cardiovascular disease) Mother No problems noted. Social History Housing: House Patient Tobacco Use Status: Never used Tobacco e-Cigarette/Vaping Use: Never Used service: No Current occupational status: retired Female Reproductive History Menstrual Age of Menarche: 11 Questionnaire Thrive Questionnaire Date Thrive assessed: 09/29/24 AUDIT C Alcohol Use Questionnaire (AUDIT-C) 1. How often do you have a drink containing alcohol?: Never 3. How often do you have six or more drinks on one occasion?: Never Total Score: 0 LU-7 AMB Questionnaire LU-7 Date LU - 7 assessed: 09/29/24 Source: Developed by Drs. Jayden Keane, Louise Reyes, Kwame Asher and colleagues, with an educational dequan from [employer]. Physical exam (Primary Care) Vital Signs: Last Vital Signs Temp 96.6 F L 01/29/25 08:57 Pulse 76 01/29/25 08:57 Resp 16 01/29/25 08:57 BP 140/90 H 01/29/25 08:57 Pulse Ox 97 01/29/25 08:57 Oxygen Delivery Method Room Air 01/29/25 08:57 BMI result Body Mass Index 33.3 Tobacco/Smoking Status: Tobacco use Status Tobacco use date assessed 01/29/25 01/29/25 08:45 Patient Tobacco Use Status Never used Tobacco 01/29/25 08:45 e-Cigarette/Vaping Use Never Used 01/29/25 08:59 Thrive Assessment: Date of Thrive Assessment Date Thrive assessed 09/29/24 01/29/25 08:45 Coding Level of Care Code Est Pt Level 4 (54562) Complex EM visit Add On G2211 Diagnoses HTN (hypertension) I10 CKD (chronic kidney disease) N18.9 Paroxysmal atrial fibrillation I48.0 Depression with anxiety F41.8 Assessment & Plan Assessment & Plan (1) HTN (hypertension): Code(s): I10 - Essential (primary) hypertension Category: Medical Plan: Controlled. Continue lisinopril 20 mg daily and diltiazem 240 mg daily. Low- sodium diet (2) CKD (chronic kidney disease): Code(s): N18.9 - Chronic kidney disease, unspecified Category: Medical Plan: BMP reviewed. Stage 4. Continue following with Dr. Rivera. Continue therapies. Discussed her concerns about jardiance (3) Paroxysmal atrial fibrillation: Comment: taking xarelto - sees [facility] - OV 05/19/21 on chart Code(s): I48.0 - Paroxysmal atrial fibrillation Category: Medical Plan: Rate controlled. Continue Xarelto for anticoagulation and diltiazem for rate control. Discussed concerns with jardiance. Follow-up with Dr. Dunlap as scheduled. (4) Depression with anxiety: Code(s): F41.8 - Other specified anxiety disorders Category: Medical Plan: Uncontrolled. She is not interested in medication. Continue lorazepam as needed. Provided website to look for therapists in the area and encouraged to follow-up. Plan Follow-up in the office in 4 months. Labs to be completed following visit several days prior to next visit. Orders: Orders Basic Metabolic Panel 4 Months E78.00 - Pure hypercholesterolemia, unspecified, F41.8 - Other specified anxiety disorders, I10 - Essential (primary) hypertension, I48.0 - Paroxysmal atrial fibrillation, N18.9 - Chronic kidney disease, unspecified Complete Blood Count Auto Diff 4 Months E78.00 - Pure hypercholesterolemia, unspecified, F41.8 - Other specified anxiety disorders, I10 - Essential (primary) hypertension, I48.0 - Paroxysmal atrial fibrillation, N18.9 - Chronic kidney disease, unspecified Lipid Panel 4 Months E78.00 - Pure hypercholesterolemia, unspecified, F41.8 - Other specified anxiety disorders, I10 - Essential (primary) hypertension, I48.0 - Paroxysmal atrial fibrillation, N18.9 - Chronic kidney disease, unspecified Liver Panel 4 Months E78.00 - Pure hypercholesterolemia, unspecified, F41.8 - Other specified anxiety disorders, I10 - Essential (primary) hypertension, I48.0 - Paroxysmal atrial fibrillation, N18.9 - Chronic kidney disease, unspecified
[2025-01-29 08:57] VITALS: BP 140/90; PULSE 76; RESP 16; TEMP 35.9; O2SAT 97; BMI 33.3
[2025-01-29 09:21] VITALS: BP 132/78
--- OUTSIDE RECORDS SUMMARY | 2025-01-29 09:38 | XMS_ITS | Encounter Summary ---
Author Organization [facility], Address [address] [place] [address] Phone Care Team Providers Care Box Nailer Name Role Phone Amilcar Harvey MD Primary Care Provider [phone] Encounter Details Date Type Department Care Team (Late st Contact Info) Description 01/05/2023 Documentation Only [facility], [facility] Dr [address] [facility] [address] [place] [phone] Carol Dwyer MD Social History Tobacco Use [...] Care Team (Late st Contact Info) Description 07/09/2025 1:30 PM EDT Office Visit [facility] [address] [place] [phone] Mane Rivera MD [address] [facility] [address] [place] [address] documented as of this encounter Visit Diagnoses Not on filedocumented in this encounter Care Teams Box Nailer Relationship Specialty Start Date End Date Amilcar Harvey MD [address] [place] [address] [address] CHRISTIANO ABDULLAHI PCP - General 11/5/19 documented as of this encounter
--- OUTSIDE RECORDS SUMMARY | 2025-01-29 09:38 | XMS_ITS | Encounter Summary ---
Author Organization [facility] [place], Address [address] [place] [address] Phone Care Team Providers Care Crane Operator Name Role Phone Amilcar Harvey MD Primary Care Provider [phone] Encounter Details Date Type Department Care Team (Late Contact Info) Description 01/26/2020 Orders Only [facility] - [facility] [address] [facility] 3 [place] [address] Carol Dwyer MD Chronic kidney disease stage [...] [facility] [address] [place] [phone] Mane Rivera MD [address] [facility] [address] [place] [address] documented as of this encounter Visit Diagnoses Diagnosis Chronic kidney disease stage 3 (HCC) documented in this encounter Care Teams Crane Operator Relationship Specialty Start Date End Date Amilcar Harvey MD [address] [place] [address] [address] [place] PCP - General 02/28/19 documented as of this encounter
--- OUTSIDE RECORDS SUMMARY | 2025-01-29 09:38 | XMS_ITS | Encounter Summary ---
Author Organization [facility] [place], Address [address] [place] [address] Phone Care Team Providers Care Instrument And Electrical Technician Name Role Phone Amilcar Harvey MD Primary Care Provider [phone] Encounter Details Date Type Department Care Team (Late st Contact Info) Description 01/05/2023 Documentation Only [facility], [facility] Dr [address] [facility] [address] [place] [phone] Carol Dwyer MD Social History Tobacco Use [...] Visit [facility] [address] [place] [phone] Mane Rivera MD [address] [facility] [address] [place] [address] documented as of this encounter Visit Diagnoses Not on filedocumented in this encounter Care Teams Instrument And Electrical Technician Relationship Specialty Start Date End Date Amilcar Harvey MD [address] [place] [address] [address] CHRISTIANO ABDULLAHI PCP - General 11/5/19 documented as of this encounter
--- OUTSIDE RECORDS SUMMARY | 2025-01-29 09:38 | XMS_ITS | Encounter Summary ---
Author Organization [facility] [place], Address [address] [place] [address] Phone Care Team Providers Care Program Planner Name Role Phone Amilcar Harvey MD Primary Care Provider [phone] Encounter Details Date Type Department Care Team (Late st Contact Info) Description 01/05/2023 Documentation Only [facility] [place], [facility] Dr Loretta [address] [facility] [address] [place] [phone] Carol Dwyer MD Social History Tobacco Use [...] Visit [facility] [address] [place] [phone] Mane Rivera MD [address] [facility] [address] [place] [address] documented as of this encounter Visit Diagnoses Not on filedocumented in this encounter Care Teams Program Planner Relationship Specialty Start Date End Date Amilcar Harvey MD [address] [place] [address] [address] CHRISTIANO ABDULLAHI PCP - General 11/5/19 documented as of this encounter
--- OUTSIDE RECORDS SUMMARY | 2025-01-29 09:38 | XMS_ITS | Encounter Summary ---
Author Organization [facility] [place], Address [address] [place] [address] Phone Care Team Providers Care Inside Sales Representative Name Role Phone Amilcar Harvey MD Primary Care Provider [phone] Encounter Details Date Type Department Care Team (Late Contact Info) Description 07/26/2020 Orders Only [facility] - [facility] 51 [facility] 3 [place] [address] Carol Dwyer MD Chronic kidney disease stage [...] Visit [facility] [address] [place] [phone] Mane Rivera MD [address] [facility] [address] [place] [address] documented as of this encounter Visit Diagnoses Diagnosis Chronic kidney disease stage 3 (HCC) documented in this encounter Care Teams Inside Sales Representative Relationship Specialty Start Date End Date Amilcar Harvey MD [address] [place] [address] [address] [place] PCP - General 02/28/19 documented as of this encounter
--- OUTSIDE RECORDS SUMMARY | 2025-01-29 09:38 | XMS_ITS | Encounter Summary ---
Author Organization [facility] [place], Address [address] [place] [address] Phone Care Team Providers Care Dental Financial Coordinator Name Role Phone Amilcar Harvey MD Primary Care Provider [phone] Encounter Details Date Type Department Care Team (Late st Contact Info) Description 01/05/2023 Documentation Only [facility] [place], [facility] Dr [address] [facility] [address] [place] [phone] Carol Dwyer MD Social History Tobacco Use [...] Visit [facility] [address] [place] [phone] Mane Rivera MD [address] [facility] [address] [place] [address] documented as of this encounter Visit Diagnoses Not on filedocumented in this encounter Care Teams Dental Financial Coordinator Relationship Specialty Start Date End Date Amilcar Harvey MD [address] [place] [address] [address] CHRISTIANO ABDULLAHI PCP - General 11/5/19 documented as of this encounter
--- OUTSIDE RECORDS SUMMARY | 2025-01-29 09:39 | XMS_ITS | Encounter Summary ---
Author Organization [facility] [place], Address [address] [place] [address] Phone Care Team Providers Care General Agent Name Role Phone Amilcar Harvey MD Primary Care Provider Encounter Details Date Type Department Care Team (Late st Contact Info) Description 09/10/2022 Documentation Only [facility] [place], [facility] Dr [address]ta [address] DR [facility] [address] [place] [phone] Carol Dwyer MD Social History Tobacco Use [...] Visit [facility] [address] [place] [phone] Mane Rivera MD [address]12 [facility] [address] [place] [address] documented as of this encounter Visit Diagnoses Not on filedocumented in this encounter Care Teams General Agent Relationship Specialty Start Date End Date Amilcar Harvey MD [address] [place] [address] [address] CHRISTIANO ABDULLAHI PCP - General 11/5/19 documented as of this encounter
--- OUTSIDE RECORDS SUMMARY | 2025-01-29 09:39 | XMS_ITS | Encounter Summary ---
Author Organization [facility] Address [address] [place] [address] Phone Care Team Providers Care Cleaning Manager Name Role Phone Amilcar Harvey MD Primary Care Provider Encounter Details Date Type Department Care Team (Latest Contact Info) Description 08/09/[address] [facility] Laboratory [address] [place] [address] Carol Dwyer MD [address] [place] [address], [address] [place] [address] [email or web address] Chronic kidney disease, stage III (moderate) (Primary [...] EDT) ALBUMIN 4.0 3.9 - 4.8 g/dL [facility] Blood 08/09/2018 12:0 0 PM EDT 08/09/2018 12:07 PM EDT us Carol Dwyer MD LAB BLOOD ORDERABLES Final Re sult [facility] [address] [place] [address] * Magnesium (08/09/2018 12:00 PM EDT) MAGNESIUM 2.0 1.6 - 2.6 mg/dL [facility] Blood 08/09/2018 12:0 0 PM EDT 08/09/2018 12:07 PM EDT Carol Dwyer MD LAB BLOOD ORDERABLES Final Re sult [address] [address] * Phosphorus (08/09/2018 12:00 PM EDT) PHOSPHORUS 2.7 2.7 - 4.5 mg/dL [facility] Blood 08/09/2018 12:0 0 PM EDT 08/09/2018 12:07 PM EDT Carol Dwyer MD LAB BLOOD ORDERABLES Final Re sult Performing Organization Address City/[facility]/ZIP Co de Phone Number [address] [address] * (ABNORMAL) Basic metabolic panel (08/09/2018 12:00 PM EDT) SODIUM 144 133 - 146 mmol/L [facility] CHLORIDE 105 96 - 108 mmol/L [facility] POTASSIUM 4.7 3.3 - 5.1 mmol/L [facility] CO2 26 21 - 35 mmol/L [facility] BUN 31(H) 6 - 19 mg/dL [facility] CREATININE 1.60(H) 0.5 - 1.5 mg/dL [facility] GLUCOSE 116(H) 70 - 99 mg/dL [facility] CALCIUM 9.6 8.4 - 10.3 mg/dL [facility] EGFR 34(L) >59 mL/min/1.7 3m2 [facility] Comment:If patient is black, multiply result by 1.159. Estimated glomerular filtration rate calculated using the CKD-EPI equation. ANION GAP 18 10 - 20 mmol/L [facility] Blood 08/09/2018 12:0 0 PM EDT 08/09/2018 12:07 PM EDT us Carol Dwyer MD LAB BLOOD ORDERABLES Final Re sult [facility] [address] [place] [address] documented in this encounter Visit Diagnoses Diagnosis Chronic kidney disease, stage III (moderate)- Primary Chronic kidney disease, Stage III (moderate) documented in this encounter Care Teams Cleaning Manager Relationship Specialty Start Date End Date Amilcar Harvey MD [address] [place] [address] [place] [address] PCP - General Internal Medicine 04/12/17 documented as of this encounter Additional Source Comments The information contained in this document represents components of the legal health record. It is not the complete legal health record.[facility]
--- OUTSIDE RECORDS SUMMARY | 2025-01-29 09:39 | XMS_ITS | Clinical Summary ---
Author Organization [facility] Address [address] [place] [address] Phone Care Team Providers Care Fresh Foods Clerk Name Role Phone Amilcar Harvey MD Primary [...] topic Medical Devices Not on file Insurance ([place]) [address] [facility] [address] [place] [address] [place] [address] [facility] Care Teams Fresh Foods Clerk Relationship Specialty Start Date End Date Amilcar Harvey MD [address] [place] [address] [place] [address] PCP - General Internal Medicine 04/12/17 Additional Source Comments The information contained in this document represents components of the legal health record. It is not the complete legal health record.[facility]
--- OUTSIDE RECORDS SUMMARY | 2025-01-29 09:39 | XMS_ITS | Encounter Summary ---
Author Organization [facility] Address [address] [place] [address] Phone Care Team Providers Care Plc Technician Name Role Phone Amilcar Harvey MD Primary Care Provider Encounter Details Date Type Department Care Team (Latest Contact Info) Description 01/26/2020 Transcribe Orders [facility] Laboratory [address] [place] [address] Carol Dwyer MD [address] [place] [address], [address] [place] [address] [email or web address] Stage 3 chronic kidney disease, unspecified whether [...] Primary documented in this encounter Care Teams Plc Technician Relationship Specialty Start Date End Date Amilcar Harvey MD [address] [place] [address] [place] [address] PCP - General Internal Medicine 04/12/17 documented as of this encounter Additional Source Comments The information contained in this document represents components of the legal health record. It is not the complete legal health record.[facility]
--- OUTSIDE RECORDS SUMMARY | 2025-01-29 09:39 | XMS_ITS | Encounter Summary ---
Author Organization [facility] Address [address] [place] [address] Phone Care Team Providers Care In Flight Refueling Manager Name Role Phone Amilcar Harvey MD Primary Care Provider Encounter Details Date Type Department Care Team (Latest Contact Info) Description 10/11/2017 Transcribe Orders [facility] Laboratory [address] [place] [address] Carol Dwyer MD [address] [place] [address], [address] [place] [address] [email or web address] Chronic kidney disease, stage III (moderate) (Primary [...] AM EDT) URINE TOTAL PROTEIN 41.5 mg/dL [facility] URINE CREATININE 60 mg/dL [facility] URINE TP CRE RATIO 0.69(H) 0 - 0.19 [facility] Urine (Urine) 10/11/2017 11: 18 AM EDT 10/11/2017 11:20 AM EDT us Carol Dwyer MD URINE ORDERABLES Final Result Performing Organization Address [facility]/ZIP Co de Phone Number [address] [address] * (ABNORMAL) Albumin (10/11/2017 11:11 AM EDT) ALBUMIN 3.7(L) 3.9 - 4.8 g/dL [facility] Blood 10/11/2017 11:1 1 AM EDT 10/11/2017 11:16 AM EDT us Carol Dwyer MD LAB BLOOD ORDERABLES Final Re sult Performing Organization Address [facility] Co de Phone Number [address] [address] * Magnesium (10/11/2017 11:11 AM EDT) MAGNESIUM 1.9 1.6 - 2.6 mg/dL [facility] Blood 10/11/2017 11:1 1 AM EDT 10/11/2017 11:16 AM EDT us Carol Dwyer MD LAB BLOOD ORDERABLES Final Re sult Performing Organization Address [facility] Co de Phone Number [address] [address] * (ABNORMAL) Phosphorus (10/11/2017 11:11 AM EDT) PHOSPHORUS 2.2(L) 2.7 - 4.5 mg/dL [facility] Blood 10/11/2017 11:1 1 AM EDT 10/11/2017 11:16 AM EDT us Carol Dwyer MD LAB BLOOD ORDERABLES Final Re sult Performing Organization Address [facility]/ZIP Co de Phone Number [address] [address] * CBC and differential (10/11/2017 11:11 AM EDT) WBC 4.79 3.40 - 11.20 K/uL [facility] RBC 4.12 3.80 - 4.80 M/uL [facility] HGB 12.8 12.0 - 15.0 g/dL [facility] HCT 38.7 36.0 - 46.0 % [facility] PLT 244 130 - 400 K/uL [facility] MCV 93.9 79.0 - 98.0 fL [facility] MCH 31.1 27.0 - 34.8 pg [facility] MCHC 33.1 31.5 - 36.0 g/dL [facility] RDW 12.2 10.8 - 14.6 % [facility] MPV 10.8 9.4 - 12.4 fl [facility] NRBC 0.00 /100 WBCs [facility] ABSOLUTE NRBC 0.00 K/uL [facility] DIFF METHOD Auto [facility] NEUTS 71.9 45.30 - 77.70 % [facility] LYMPHS 16.9 12.30 - 39.70 % [facility] MONOS 7.7 4.10 - 12.80 % [facility] EOS 2.1 0 - 7.2 % [facility] BASOS 1.0 0 - 2.80 % [facility] Granulocytes, immature (%) 0.4 0.0 - 0.9 % [facility] ABSOLUTE NEUTS 3.44 1.40 - 7.70 K/uL [facility] ABSOLUTE LYMPHS 0.81 0.60 - 3.20 K/uL [facility] ABSOLUTE MONOS 0.37 0.11 - 0.59 K/uL [facility] ABSOLUTE EOS 0.10 0.01 - 0.50 K/uL [facility] ABSOLUTE BASOS 0.05 0.00 - 0.08 K/uL [facility] Granulocytes, immature 0.02 0.00 - 0.05 K/uL [facility] Blood 10/11/2017 11:1 1 AM EDT 10/11/2017 11:16 AM EDT us Carol Dwyer MD LAB BLOOD ORDERABLES Final Re sult Performing Organization Address [facility]/ZIP Co de Phone Number [address] [address] * (ABNORMAL) Basic metabolic panel (10/11/2017 11:11 AM EDT) SODIUM 141 133 - 146 mmol/L [facility] CHLORIDE 103 96 - 108 mmol/L [facility] POTASSIUM 4.4 3.3 - 5.1 mmol/L [facility] CO2 26 21 - 35 mmol/L [facility] BUN 29(H) 6 - 19 mg/dL [facility] CREATININE 1.50 0.5 - 1.5 mg/dL [facility] GLUCOSE 74 70 - 99 mg/dL [facility] CALCIUM 9.6 8.4 - 10.3 mg/dL [facility] EGFR 37(L) >59 mL/min/1.7 3m2 [facility] Comment:If patient is black, multiply result by 1.159. Estimated glomerular filtration rate calculated using the CKD-EPI equation. ANION GAP 16 10 - 20 mmol/L [facility] Blood 10/11/2017 11:1 1 AM EDT 10/11/2017 11:16 AM EDT us Carol Dwyer MD LAB BLOOD ORDERABLES Final Re sult Performing Organization Address [facility]/ZIP Co de Phone Number [address] [address] * (ABNORMAL) Parathyroid hormone (PTH) (10/11/2017 11:11 AM EDT) PARATHYROID HORMONE 73(H) 15 - 65 pg/mL [facility] Blood 10/11/2017 11:1 1 AM EDT 10/11/2017 11:16 AM EDT us Carol Dwyer MD LAB BLOOD ORDERABLES Final Re sult Performing Organization Address City/[facility]/ZIP Co de Phone Number [address] [address] documented in this encounter Visit Diagnoses Diagnosis Chronic kidney disease, stage III (moderate)- Primary Chronic kidney disease, Stage III (moderate) Parenchymal renal hypertension, 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 It is not the complete legal health record.[facility]
--- OUTSIDE RECORDS SUMMARY | 2025-01-29 09:39 | XMS_ITS | Clinical Summary ---
Author Organization [facility] Address [address] [place] [address] Phone Care Team Providers Care Central Supply Technician Supervisor Name Role Phone Amilcar Harvey MD Primary Care Provider [phone] Allergies Active Allergy Reactions Criticality Noted Date [...] Active Problems Problem Noted Date Diagnosed Date Chronic kidney disease, stage 4 (severe) 025 Preoperative state 07/26/2023 halfway current use of anticoagulant History of adenomatous [...] Encounters Date Type Department Care Team Description 01/04/2025 2:15 PM EDT Office Visit [facility] [address] [place] [address] Mane Rivera MD Chronic kidney disease, stage 4 (severe) (HCC) (Primary Dx) 12/28/2024 Orders Only [facility] [address] [place] [address] Mane Rivera MD from Last 3 Months Immunizations Immunization Administration Dates Next Due Influenza Split High Dose Preservative Free IM 0 01/12/2017 Influenza, Unspecified 01/24/2021 Family History Medical History Relation Comments Gout Brother Heart disease Brother NE Hypertension Brother Kidney disease Brother Heart disease Father NE Hypertension Father Dementia Mother Kidney disease Sibling [...] Sign Reading Time Taken Comments Blood Pressure 138/72 01/04/2025 2:38 PM EDT Pulse 71 01/04/2025 2:38 PM EDT Temperature 36.7 C (98 F) 01/26/2019 12:00 PM EDT Respiratory Rate 14 04/21/2023 11:29 AM EST Oxygen Saturation 96% 01/04/2025 2:38 PM EDT Inhaled Oxygen Concentration - - Weight 88 kg (194 lb) 01/04/2025 2:38 PM EDT Height 162.6 cm (5' 4 ) 04/21/2023 11:29 AM EST Body Mass Index 33.3 04/21/2023 11:29 AM EST Plan of Treatment Upcoming Encounters Date Type Department Care Team (Late st Contact Info) Description 07/09/2025 1:30 PM EDT Office Visit [facility] [address] [place] [address] Mane Rivera MD [address] [place] [address] Health Maintenance Due Date Last [...] Procedure Name Priority Date/Time Associated Diagnosis Comments PROTEIN / CREATININE RATIO, URINE Routine 12/28/2024 2:39 PM EDT ALBUMIN, URINE, RANDOM Routine 12/28/2024 2:39 PM EDT URINALYSIS WITH MICROSCOPIC Routine 12/28/2024 2:39 PM EDT PTH, INTACT (HC) Routine 12/28/2024 2:12 PM EDT CBC AND DIFFERENTIAL Routine 12/28/2024 2:12 PM EDT VITAMIN D 25 HYDROXY Routine 12/28/2024 2:11 PM EDT ALBUMIN Routine 12/28/2024 2:11 PM EDT MAGNESIUM Routine 12/28/2024 2:11 PM EDT PHOSPHATE ( PHOSPHORUS) Routine 12/28/2024 2:11 PM EDT CALCIUM Routine 12/28/2024 2:11 PM EDT CREATININE, BLOOD Routine 12/28/2024 2:1 1 PM EDT BUN Routine 12/28/2024 2:11 PM EDT ELECTROLYTE PANEL Routine 12/28/2024 2:1 1 PM EDT from Last 3 Months Results * (ABNORMAL) Protein, Total, Random Urine w/Creatinine (Protein/Creat Ratio) (12/28/2024 2:39 PM EDT) Protein Urine Random 26(H) <12 mg/dL See order comments Protein/Creati nine Ratio, Urine 0.42(H) <0.2 See order comments Comment: The spot urine protein:creatinine ratio may increase to 0.3 during normal . 12/28/2024 2:39 PM EDT 12/28/2024 2:39 PM EDT us Mane Rivera MD LAB URINE ORDERABLES Final Re sult [place] See order comments [place] [address] * (ABNORMAL) Albumin, urine, random (12/28/2024 2:39 PM EDT) Creatinine, Urine 61.91 mg/dL Se e order comments Urine Microalbumin 181.0 mg/L See order comments Microalbumin/Crea tinine Ratio 292.3(H) <30 ug/mg cr See order comments Comment: Albumin/Creatinine Ratio Reference Ranges: Normal: < 30 ug/mg creatinine Microalbuminuria: 30 - 300 ug/mg creatinine Clinical Albuminuria: > 300 ug/mg creatinine 12/28/2024 2:39 PM EDT 12/28/2024 2:39 PM EDT Mane Rivera MD LAB URINE ORDERABLES Final Re sult Performing Organization Address [facility] Co de Phone Number [place] See order comments [place] [address] * (ABNORMAL) Urinalysis with microscopic (12/28/2024 2:39 PM EDT) Color Urine Yellow See orde r comments Appearance Urine Clear See order comments pH Urine 7.0 5.0 - 9.0 See order comments Glucose Urine Negative Negative mg/dL See order comments Blood, Urine Negative Negative See ord er comments Specific [place] Urine 1.010 1.005 - 1.025 See order comments Protein Urine 30 (1+)(A) Neg-Trace mg/dL See order comments Ketones, Urine Negative Negative mg/dL See order comments Nitrite, Urine Negative Negative See o rder comments Leukocyte Esterase Urine Negative Negative See order comments RBC, Urine 0-2 0 - 2 /HPF See orde r comments WBC 0-5 0 - 5 /HPF See order comments Squamous Epithelial, Urine 0-2 0 - 2 /HPF See order comments Bacteria, Urine None Seen None Seen See order comments Hyaline Casts, Urine 0-2 0 - 2 /LPF See order comments 12/28/2024 2:39 PM EDT 12/28/2024 2:39 PM EDT Mane Rivera MD LAB URINE ORDERABLES Final Re sult Performing Organization Address [facility] Co de Phone Number [place] See order comments [place] [address] * (ABNORMAL) PTH, Intact (12/28/2024 2:12 PM EDT) Parathyroid Hormone, Intact 102.4(H) 8.7 - 77.1 pg/mL See order comments 12/28/2024 2:12 PM EDT 12/28/2024 2:12 PM EDT Mane Rivera MD LAB [id number] SOLICITED RESULTS Final Result Performing Organization Address [facility] Co de Phone Number [place] See order comments [place] [address] * (ABNORMAL) CBC and Differential (12/28/2024 2:12 [...] 2:12 PM EDT 12/28/2024 2:12 PM EDT Mane Rivera MD LAB BLOOD ORDERABLES Final Re sult Performing Organization Address City/[facility] Co de Phone Number [place] See order comments [place] [address] * (ABNORMAL) Creatinine (12/28/2024 2:11 PM EDT) Creatinine Serum 1.97(H) 0.5 - 1.4 mg/dL See order comments eGFR (Calc) 25 See orde r comments Comment: Chronic Kidney Disease: Estimated GFR < 60 mL/min/1.73m2 Severe Kidney Disease: Estimated GFR < 15 mL/min/1.73m2 12/28/2024 2:11 PM EDT 12/28/2024 2:11 PM EDT Mane Rivera MD LAB BLOOD ORDERABLES Final Re sult Performing Organization Address [facility] Co de Phone Number [place] See order comments [place] [address] * Vitamin D 25 Hydroxy (12/28/2024 2:11 PM EDT) Vitamin D, 25-Hydroxy 46.7 >30 ng/mL See order comments Comment: Health Based Reference Values* < 20 ng/mL Deficient 20-30 ng/mL Insufficient > 30 ng/mL Sufficient *Vida LEZAMA. N Engl J Med. 2007;357:266-280 There is no well-established upper level of normal vitamin D levels. Some laboratories use 50 ng/mL as an upper limit of normal. However, toxicity is patient-dependent and may occur at any level. Careful correlation with the patient's presentation is necessary and, if there is concern for vitamin D toxicity, treatment should be considered irrespective of the serum level. Care must be taken in interpreting Vitamin D results from different laboratories and methodologies. Published data demonstrated that results from patients undergoing hemodialysis may show a negative bias when tested with various automated 25-OH vitamin D assays when compared to LC-MS/MS. When testing samples from patients whose predominant form of Vitamin D is Vitamin D2, such as patients receiving Vitamin D2 supplementation, results that are subtherapeutic should be confirmed with another method such as LC-MS/MS. 12/28/2024 2:11 PM EDT 12/28/2024 2:11 PM EDT us Mane Rivera MD LAB BLOOD ORDERABLES Final Re sult Performing Organization Address [facility] Phone Number [place] See order comments [place] [address] * (ABNORMAL) BUN (12/28/2024 2:11 PM EDT) BUN 34(H) 9 - 16 mg/dL See order comments 12/28/2024 2:11 PM EDT 12/28/2024 2:11 PM EDT us Mane Rivera MD LAB BLOOD ORDERABLES Final Re sult Performing Organization Address [facility] Phone Number [place] See order comments [place] [address] * Phosphorus (12/28/2024 2:11 PM EDT) Phosphorus, Serum 3.3 2.7 - 4.5 mg/dL See order comments 12/28/2024 2:11 PM EDT 12/28/2024 2:11 PM EDT us Mane Rivera MD LAB BLOOD ORDERABLES Final Re sult Performing Organization Address [facility] Phone Number [place] See order comments [place] [address] * Magnesium (12/28/2024 2:11 PM EDT) Magnesium 2.3 1.6 - 2.6 mg/dL See order comments 12/28/2024 2:11 PM EDT 12/28/2024 2:11 PM EDT us Mane Rivera MD LAB BLOOD ORDERABLES Final Re sult Performing Organization Address [facility] Phone Number [place] See order comments [place] [address] * Calcium (12/28/2024 2:11 PM EDT) Calcium 9.7 8.4 - 10.2 mg/dL See order comments 12/28/2024 2:11 PM EDT 12/28/2024 2:11 PM EDT Mane Rivera MD LAB BLOOD ORDERABLES Final Re sult Performing Organization Address [facility] Phone Number [place] See order comments [place] [address] * Albumin (12/28/2024 2:11 PM EDT) Albumin 4.2 3.5 - 5.0 g/dL See order comments 12/28/2024 2:11 PM EDT 12/28/2024 2:11 PM EDT Mane Rivera MD LAB BLOOD ORDERABLES Final Re sult Performing Organization Address [facility] Phone Number [place] See order comments [place] [address] * Electrolyte panel (12/28/2024 2:11 PM EDT) Sodium 140 135 - 145 mmol/L See order comments Potassium 4.8 3.3 - 5.1 mmol/L See order comments Comment:Slight Hemolysis.Int erpret result with caution. Chloride 107 96 - 108 mmol/L See order comments Bicarbonate (CO2) 24 22 - 29 mmol/L See order comments Anion Gap 14 12 - 20 See order comments 12/28/2024 2:11 PM EDT 12/28/2024 2:11 PM EDT us Mane Rivera MD LAB BLOOD ORDERABLES Final Re sult Performing Organization Address [facility] Phone Number [facility] See order comments [place] [address] from Last 3 Months Insurance [facility] Medicare [facility] Care Teams Central Supply Technician Supervisor Relationship Specialty Start Date End Date Amilcar Harvey MD [address] [place], [place] PCP - General 02/28/19
--- OUTSIDE RECORDS SUMMARY | 2025-01-29 09:39 | XMS_ITS | Patient Health Record ---
Author Organization [facility] Address [address] [place] [address] Care Team Providers Care Ink Technician Name Role Phone Wes (RETIRED) Amilcar LEWIS Primary Care Provide r Jayden Dos Santos Unavailable [phone] Allergies Allergen (clinical drug ingredient) Drug/Non Drug [...] Problem Status W/U Status Risk Notes Problem 013897592 Encounter for screening for malignant neoplasm of colon (Z12.11) Active confirmed Problem 166212735 History of adenomatous polyp of colon (Z86.010) Active confirmed Problem Screening for malignant neoplasm of rectum (630731374) Encounter for screening for malignant neoplasm of rectum (Z12.12) Active confirmed Problem 87787870 Preprocedural examination (Z01.818) Active confirmed Problem Diverticulosis of colon (564148205) Diverticulosis of colon (K57.30) Active confirmed Problem 450097303 residential curren t use of anticoagulant (Z79.01) Active confirmed Plan Of Treatment Pending Test Test Name Order Date Pathology 05/30/2021 Future Test Test Name Order Date COLONOSCOPY 09/24/2015 COLONOSCOPY 05/06/2021 Insurance Providers Payer Name Payer Address Payer Phone Subscriber Number Group Number Insured Name Patient Relationship to Insured Coverage Start Date Coverage End Date [facility] [address] [place] [address] [id number] WALTER Nunn DAMON Self - patient is the insured Medical (General) History Medical History History ICD Code Screening colonoscopy 06-27-19 11--1 tubular adenoma, sigmoid diverticulosis, internal hemorrhoids Hx of atrial fibrillation--r esolved after the dx of sleep apnea and she started using the CPAP Stage 2 chronic renal disease--Dr. Dwyer Hyperlipidemia Hypertension Denies TX,DM,CVA,Lung disease Gout Anxiety Sleep apnea--uses CPAP Negative colonoscopy in 12/2015 Surgical History Surgery Date(Month/Year) Ectopic prenancy Ovarian cyst FRANSISCO
--- OUTSIDE RECORDS SUMMARY | 2025-01-29 09:39 | XMS_ITS | Encounter Summary ---
Author Organization [facility] Address [address] [place] [address] Phone Care Team Providers Care Animal Ride Attendant Name Role Phone Amilcar Harvey MD Primary Care Provider Encounter Details Date Type Department Care Team (Latest Contact Info) Description 04/12/[address] [facility] Laboratory [address] [place] [address] Carol Dwyer MD [address] [place] [address], [address] [place] [address] [email or web address] Chronic kidney disease, stage III (moderate) [...] PM EST) URINE TOTAL PROTEIN 27.7 mg/dL [facility] URINE CREATININE 61 mg/dL [facility] URINE TP CRE RATIO 0.45(H) 0 - 0.19 [facility] Urine (Urine) 04/12/2017 12: 00 PM EST 04/12/2017 12:08 PM EST Carol Dwyer MD URINE ORDERABLES Final Result [address] [address] * (ABNORMAL) Parathyroid hormone (PTH) (04/12/2017 12:00 PM EST) PARATHYROID HORMONE 70(H) 15 - 65 pg/mL [facility] Blood 04/12/2017 12:0 0 PM EST 04/12/2017 12:06 PM EST Carol Dwyer MD LAB BLOOD ORDERABLES Final Re sult [address] [address] * CBC and differential (04/12/2017 12:00 PM EST) WBC 4.99 3.40 - 11.20 K/uL [facility] RBC 4.23 3.80 - 4.80 M/uL [facility] HGB 12.9 12.0 - 15.0 g/dL [facility] HCT 39.8 36.0 - 46.0 % [facility] PLT 233 130 - 400 K/uL [facility] MCV 94.1 79.0 - 98.0 fL [facility] MCH 30.5 27.0 - 34.8 pg [facility] MCHC 32.4 31.5 - 36.0 g/dL [facility] RDW 12.6 10.8 - 14.6 % [facility] MPV 10.2 9.4 - 12.4 fl [facility] NRBC 0.00 /100 WBCs [facility] ABSOLUTE NRBC 0.00 K/uL [facility] DIFF METHOD Auto [facility] NEUTS 69.8 45.30 - 77.70 % [facility] LYMPHS 19.0 12.30 - 39.70 % [facility] MONOS 6.8 4.10 - 12.80 % [facility] EOS 3.2 0 - 7.2 % [facility] BASOS 0.6 0 - 2.80 % [facility] Granulocytes, immature (%) 0.6 0.0 - 0.9 % [facility] ABSOLUTE NEUTS 3.48 1.40 - 7.70 K/uL [facility] ABSOLUTE LYMPHS 0.95 0.60 - 3.20 K/uL [facility] ABSOLUTE MONOS 0.34 0.11 - 0.59 K/uL [facility] ABSOLUTE EOS 0.16 0.01 - 0.50 K/uL [facility] ABSOLUTE BASOS 0.03 0.00 - 0.08 K/uL [facility] Granulocytes, immature 0.03 0.00 - 0.05 K/uL [facility] Blood 04/12/2017 12:0 0 PM EST 04/12/2017 12:07 PM EST us Carol Dwyer MD LAB BLOOD ORDERABLES Final Re sult [facility] [address] [place] [address] * (ABNORMAL) Albumin (04/12/2017 12:00 PM EST) ALBUMIN 3.8(L) 3.9 - 4.8 g/dL [facility] Blood 04/12/2017 12:0 0 PM EST 04/12/2017 12:07 PM EST Carol Dwyer MD LAB BLOOD ORDERABLES Final Re sult Performing Organization Address [facility]/ZIP Co de Phone Number [address] [address] * Magnesium (04/12/2017 12:00 PM EST) Pathologist [facility] MAGNESIUM 1.9 1.6 - 2.6 mg/dL [facility] Blood 04/12/2017 12:0 0 PM EST 04/12/2017 12:07 PM EST Carol Dwyer MD LAB BLOOD ORDERABLES Final Re sult Performing Organization Address [facility] Co de Phone Number [address] [address] * (ABNORMAL) Phosphorus (04/12/2017 12:00 PM EST) Pathologist [facility] PHOSPHORUS 2.6(L) 2.7 - 4.5 mg/dL [facility] Blood 04/12/2017 12:0 0 PM EST 04/12/2017 12:07 PM EST Carol Dwyer MD LAB BLOOD ORDERABLES Final Re sult Performing Organization Address [facility] Co de Phone Number [address] [address] * (ABNORMAL) Basic metabolic panel (04/12/2017 12:00 PM EST) Pathologist [facility] SODIUM 142 133 - 146 mmol/L [facility] CHLORIDE 103 96 - 108 mmol/L [facility] POTASSIUM 4.9 3.3 - 5.1 mmol/L [facility] CO2 25 21 - 35 mmol/L [facility] BUN 26(H) 6 - 19 mg/dL [facility] CREATININE 1.60(H) 0.5 - 1.5 mg/dL [facility] GLUCOSE 73 70 - 99 mg/dL [facility] CALCIUM 9.6 8.4 - 10.3 mg/dL [facility] EGFR 33(L) 60 - 1,000 mL/min/1.7 3m2 [facility] Comment:Abnormal if <60. If patient is -Maldivian, multiply the result by 1.21. ANION GAP 19 10 - 20 mmol/L [facility] Blood 04/12/2017 12:0 0 PM EST 04/12/2017 12:07 PM EST us Carol Dwyer MD LAB BLOOD ORDERABLES Final Re sult [facility] [address] [place] [address] documented in this encounter Visit Diagnoses Diagnosis Chronic kidney disease, stage III (moderate)- Primary Chronic kidney disease, Stage III (moderate) documented in this encounter Care Teams Animal Ride Attendant Relationship Specialty Start Date End Date Amilcar Harvey MD [address] [place] [address] [place] [address] PCP - General Internal Medicine 04/12/17 documented as of this encounter Additional Source Comments The information contained in this document represents components of the legal health record. It is not the complete legal health record.[facility]
== END 2025-01-29 09:28 | disposition home or self-care (01) ==
LOC: HO.HMCHD 08:50
PROVIDERS: PCP Physician Assistant; Visit Provider Physician Assistant
DX: I12.9 Hypertensive chronic kidney disease with stage 1 through stage 4 chronic kidney disease, or unspecified chronic kidney disease (principal); N18.9 Chronic kidney disease, unspecified; I48.0 Paroxysmal atrial fibrillation; F41.8 Other specified anxiety disorders

== ENCOUNTER → 2025-01-29 08:50 | Outpatient (BNVA) | payer MEDICARE, SELFPAY | PROVIDERS: PCP Physician Assistant; Visit Provider Physician Assistant | DX: I12.9 Hypertensive chronic kidney disease with stage 1 through stage 4 chronic kidney disease, or unspecified chronic kidney disease (principal); N18.4 Chronic kidney disease, stage 4 (severe); I48.0 Paroxysmal atrial fibrillation; F41.8 Other specified anxiety disorders; G47.33 Obstructive sleep apnea (adult) (pediatric); Z79.01 Long term (current) use of anticoagulants; Z79.899 Other long term (current) drug therapy; Z99.89 Dependence on other enabling machines and devices | CPT/HCPCS: 99212 ==